=== PATIENT | female | born 1950 | race Caucasian/White ===

== ENCOUNTER 2017-12-11 07:26 | Outpatient (CLI) | payer MEDICARE, BC ==
--- NOTE | 2017-12-11 10:00 | CT ---
CT ABDOMEN NONCONTRAST CT PELVIS NONCONTRAST: DATE: 12/11/17. HISTORY: A 67-year-old female with stage III chronic kidney disease, moderate N18.3. TECHNIQUE: Oral contrast. No IV contrast. COMPARISON: Contrast-enhanced CT of 06/17/14. FINDINGS: Previously, there were bilateral pleural effusions, ascites, and anasarca. Those have resolved. Aga in noted is the asymmetrically small size of the left kidney compared to the right. There is mild di lation of the right renal collecting system, slightly greater than on the previous CT. There is also mild dilation of the left renal collecting system. There is a punctate calcification at the left re nal upper-mid pole, which is probably a vascular atherosclerotic calcification, and is less likely to represent nephrolithiasis. There is no calcification in the right kidney. No definite hydroureter. No bladder calculus. No bladder wall thickening. New finding of large volume of colonic stool mix ed with oral contrast material, mildly distending the rectum. No small bowel dilation. No signs of acute colonic diverticulitis. No pneumoperitoneum. Lung bases are clear. Heavy atherosclerotic elizabeth cification of abdominal aorta and iliac arteries without aneurysm. Within the limitations of a nonco ntrast scan, no gross abnormality is identified involving the liver, spleen, adrenals, or pancreas. Cholecystectomy clips in the gallbladder fossa. Surgically absent appendix and uterus. IMPRESSION: 1. Minimal/mild bilateral hydronephrosis. 2. Otherwise, no evidence of acute findings. 3. Left kidney is smaller than the right. 4. Status post cholecystectomy, appendectomy, and hysterectomy. POS: [facility]
== END 2017-12-11 07:27 | disposition home or self-care (01) ==
LOC: CT 07:26
PROVIDERS: ATTEND Internal Medicine Hematology & Oncology
DX: N18.3 Chronic kidney disease, stage 3 (moderate) (principal); D63.1 Anemia in chronic kidney disease; D50.9 Iron deficiency anemia, unspecified; N13.30 Unspecified hydronephrosis; N27.0 Small kidney, unilateral; Z90.49 Acquired absence of other specified parts of digestive tract; Z90.710 Acquired absence of both cervix and uterus; Z79.01 Long term (current) use of anticoagulants; Z51.81 Encounter for therapeutic drug level monitoring
CPT/HCPCS: 74176; 82565

== ENCOUNTER 2018-09-13 08:18 | Outpatient (CLI) | payer MEDICARE, BC ==
--- NOTE | 2018-09-13 09:49 | RAD ---
THREE VIEWS RIGHT FOOT: Date: 09-13-18 History: Right foot pain after dropping puzzle table on foot on Sunday afternoon. Pain mainly at dors al aspect of the foot and head of metatarsals. Bruising and swelling. Comparison: None available. FINDINGS: POS: [facility]
--- NOTE | 2018-09-18 07:26 | RAD ---
THREE VIEWS RIGHT FOOT: Date: 09-13-18 History: Right foot pain after dropping puzzle table on foot on Sunday afternoon. Pain is mainly at t he dorsal aspect of the foot and the level of the head of the metatarsals. Patient has bruising and s welling. Comparison: None available. FINDINGS: The lisfranc joint is normally aligned. No fracture or dislocation is identified. Minimal osteoarthri tis involves the first metatarsal phalangeal joint. There is prominent subcutaneous soft tissue swell ing seen at the dorsal aspect of the foot and greatest at the level of the metatarsals. A posterior c alcaneal enthesophyte is identified. IMPRESSION: Prominent subcutaneous soft tissue swelling right foot without definite fracture visualized. POS: [facility]
== END 2018-09-13 08:19 | disposition home or self-care (01) ==
LOC: BICRAD 08:18
PROVIDERS: ATTEND Family Medicine
DX: M79.671 Pain in right foot (principal)

== ENCOUNTER 2018-11-14 11:50 | Outpatient (CLI) | payer MEDICARE, BC ==
--- NOTE | 2018-11-14 13:54 | RAD ---
RIGHT FOOT THREE VIEWS: History: Dropped table on foot in August. Swelling. Recently the patient started having a blister s how up on the top of the foot. FINDINGS: The bones are demineralized. There are arthritic changes of the first metatarsal phalangeal joint. I do not see any signs for a fracture. Calcaneal spurs are present. No plain film evidence for osteomye litis. IMPRESSION: Bony demineralization which appears increased as compared to the previous examination. There is some soft tissue swelling on the dorsum of the foot. No evidence of underlying fracture or signs of osteom yelitis. POS: [facility]
== END 2018-11-14 11:51 | disposition home or self-care (01) ==
LOC: BICRAD 11:50
PROVIDERS: ATTEND Family Medicine
DX: M79.671 Pain in right foot (principal); Z51.81 Encounter for therapeutic drug level monitoring; M79.89 Other specified soft tissue disorders; Z79.01 Long term (current) use of anticoagulants

== ENCOUNTER 2019-07-17 09:37 | Outpatient (CLI) | payer MEDICARE, BC ==
--- NOTE | 2019-07-17 10:55 | ULT ---
SONOGRAM ABDOMEN COMPLETE: HISTORY: Abdominal pain. Palpable lesion just below the xiphoid. Thrombocytopenia. Renal disease. Anemia. FINDINGS: Gallbladder is surgically absent. Common duct is 0.4 cm. Liver heterogeneous without focal mass or intrahepatic biliary dilatation. Mild distention of each renal collecting system is similar to the p rior CT from 12/11/2017. No free fluid. The spleen measures up to 13.5 cm. A lobular 1.5 cm hyperechoic lesion likely represents a small hem angioma within the spleen. The visualized portions of the abdominal aorta, IVC, and pancreas have a normal appearance. Within the subcutaneous tissues immediately inferior to the xiphoid where patient describes a palpabl e abnormality, a subtle area of decreased echogenicity is measured at 2.4 cm length x 0.8 cm depth. It does not have well-defined mass-like margins and may represent a small cartilaginous deposition. IMPRESSION: 1. Status post cholecystectomy. No evidence of biliary obstruction. 2. Small hemangioma within the spleen. 3. Chronic-type findings are stable. POS: [facility]
== END 2019-07-17 09:38 | disposition home or self-care (01) ==
LOC: BICULT 09:37
PROVIDERS: ATTEND Internal Medicine Hematology & Oncology
DX: R16.1 Splenomegaly, not elsewhere classified (principal); D18.03 Hemangioma of intra-abdominal structures; Z90.49 Acquired absence of other specified parts of digestive tract
CPT/HCPCS: 93975

== ENCOUNTER 2019-09-10 02:33 | Inpatient (IN) | payer MEDICARE, BC ==
[2019-09-10 03:09] LABS: Hemoglobin 10.1 g/dL (12.0-16.0); Mean Corpuscular HGB CONC 33.2 g/dL (32.0-36.0); Mean Corpuscular Hemoglobin 39.2 pg (27.0-31.0); Mean Platelet Volume 9.7 fL (7.4-10.4); Platelet Count 696 thou/uL (130-400); RBC Distribution Width 25.9 % (11.5-14.5); Red Blood Cell (RBC) Count 2.58 mill/uL (4.20-5.40); White Blood Cell (WBC) Count 4.7 thou/uL (4.8-10.8)
[2019-09-10 03:10] LABS: INR-International Normal Ratio 1.9; Prothrombin Time 22.1 SEC (12.0-14.7)
[2019-09-10 03:23] LABS: #Lymphocytes 0.4 thou/uL (1.20-3.40); #Monocytes 0.4 thou/uL (0.11-0.59); #Neutrophils 3.9 thou/uL (1.40-6.50); %Basophils 0.5 % (0.0-1.0); %Eosinophils 0.3 % (0.0-10.0); %Lymphocytes 8.8 % (21.0-51.0); %Monocytes 7.8 % (0.0-10.0); %Neutrophils 82.7 % (42.0-75.0); Anisocytosis MODERATE=16-30 cells (100X) (0-5/hpf); Large Platelets SLIGHT; MDiff Complete? YES; Macrocytosis MODERATE=16-30 cells (100X) (0-5/hpf); Platelet Morphology Comment Appears Increased; Polychromasia SLIGHT = 2-3 cells (100X) (0-2/hpf)
[2019-09-10 03:26] LABS: ALT (SGPT) 52 U/L (8-55); AST (SGOT) 59 U/L (5-34); Albumin 3.6 g/dL (3.4-4.8); Alkaline Phosphatase 77 U/L (40-110); Anion Gap 15 mmol/L (10-20); BUN (Urea Nitrogen) 22 mg/dL (9.8-20.1); Bilirubin, Total 1.5 mg/dL (0.2-1.2); Calc. Creatinine Clearance 0 mL/min (70-130); Calcium 8.1 mg/dL (7.8-10.44); Carbon Dioxide 23 mmol/L (23-31); Chloride 107 mmol/L (98-107); Estimated GFR-MDRD 49; Globulin 2.4 g/dL (2.4-3.5); Glucose 150 mg/dL (80-115); Lipase 11 U/L (8-78); Potassium 4.7 mmol/L (3.5-5.1); Sodium 140 mmol/L (136-145)
[2019-09-10] MEDS ORDERED: predniSONE 20 MG TAB ONE (03:42)
[2019-09-10] MEDS ORDERED: Sodium Chloride 0.9% 100 ML ONE (03:42)
[2019-09-10] MEDS ORDERED: cefTRIAXone\\ROCEPHIN 1 GM VIAL ONE (03:42)
[2019-09-10] MEDS ORDERED: Albuterol Sulfate 2.5 mg/0.5 ml Neb ONE (03:50)
[2019-09-10] MEDS ORDERED: Albuterol Sulfate 2.5 mg/3 ml Neb ONE (03:50)
--- NOTE | 2019-09-10 04:03 | PDOC.FPRHP ---
- History of Present Illness Chief Complaint: SOB History of Present Illness: Mrs. Turner is a 69 y/o female who presents to the ED with SOB. She states that the SOB has been ongoing since 09/09 and associated with fevers, chills, headaches, weakness and lower extremity edema. She also admits to feelings of abdominal fullness and multiple episodes of diarrhea. She states that she has cancer, type unknown - possibly in her blood - for which she sees Dr. Singh locally. Her was present in the room at the time of the evaluation and assisted with much of the HPI and ROS. ED Course: Per the ED provider, she received 3 doses of Albuterol while en route to the ED. While in the ED, she was given Albuterol x1, Prednisone 60 mg, Azithromycin 500 mg IV, Ceftriaxone 1 g IV BNP: 836 CXR: RLL opacification noted Troponins: Negative x1 - Allergies/Adverse Reactions Allergies Allergy/AdvReac Type Severity Reaction Status Date / Time amlodipine Allergy Verified 03/12/13 17:19 lisinopril Allergy Verified 03/12/13 17:19 morphine Allergy Verified 03/12/13 17:15 - Home Medications Medication Instructions Recorded Confirmed Type Cholecalciferol (Vitamin D3) 2,000 unit PO DAILY 03/12/13 09/10/19 History [Vitamin D3] Docusate [Colace] 100 mg PO Q2DAYS 03/12/13 09/10/19 History Rosuvastatin [Crestor] 10 mg PO HS 03/12/13 09/10/19 History Carvedilol 25 mg PO BID 06/10/14 09/10/19 History Amiodarone [Cordarone] 1 tab PO BID 09/10/19 09/10/19 History Apixaban [Eliquis] 2.5 mg PO BID 09/10/19 09/10/19 History Ascorbic Acid [Vitamin C] 500 mg PO DAILY 09/10/19 09/10/19 History Aspirin [Ecotrin] 81 mg PO HS 09/10/19 09/10/19 History Docusate [Colace] 100 mg PO Q2DAYS 09/10/19 09/10/19 History Folic Acid 0.4 mg PO DAILY 09/10/19 09/10/19 History Hydroxyurea [Hydrea] 500 mg PO BID 09/10/19 09/10/19 History Mirabegron [Myrbetriq] 1 tab PO DAILY 09/10/19 09/10/19 History Triamterene 25 mg PO DAILY 09/10/19 09/10/19 History - History PMHx: A-Fib, COPD, HTN, DM, HLD, CVA, Unknown Cancer PSHx: Cholecystectomy, Pericardial Window for Hemopericardium FHx: Mother (CVA, DM) Sister (CVA, DM) Allergies: Amlodipine, Lisinopril, Morphne Social: Remote Tobacco Abuse - currently Denies x3. Code: Full Code - Review of Systems General: reports: fever/chills, fatigue Eyes: denies: vision changes ENT: denies: nasal congestion, rhinorrhea Respiratory: reports: cough, shortness of breath, exercise intolerance Cardiovascular: reports: palpitation, edema. denies: chest pain Gastrointestinal: reports: diarrhea, abdominal pain. denies: nausea, vomiting Genitourinary: denies: dysuria, polyuria Skin: denies: rashes, lesions Musculoskeletal: denies: stiffness, swelling Neurological: reports: weakness. denies: syncope Psychological: denies: anxiety, depression - Vital signs BP: [147/72] HR: [66] RR: [27] Tmax: [99.5] Pox: [94]% on [4L O2] Wt: [52 kg] - Physical Exam Constitutional: awake, alert and oriented, other (Patient breathing heavily with O2 mask in place. Able to answer questions in 3-5 word sentences.) HEENT: normocephalic and atraumatic, PERRLA, conjunctiva clear, no scleral icterus, grossly normal vision, grossly normal hearing, normal nasal mucosa, MMM , oropharynx clear Neck: supple, FROM, trachea midline, no LAD, no JVD Chest: no-tender to palpation, no lesions Heart: RRR, normal S1/S2, no murmurs/rubs/gallops, pulses present, other (+2 pitting edema to mid-tibia) Lungs: other (Scattered wheezing with occasional crackles in lower lung gomez. Poor air movement.) Abdomen: soft, non-tender, bowel sounds present, no masses/distention Musculoskeletal: normal structure, ROM grossly normal Neurological: no focal deficit Skin: no rash/lesions, no jaundice Heme/Lymphatic: no unusual bruising or bleeding, no purpura, no petechia Psychiatric: normal mood and affect, good judgment and insight, intact recent and remote memory FMR H&P: Results - Labs Result Diagrams: 09/10/19 02:55 09/10/19 02:55 Lab results: WBC 4.7 thou/uL (4.8-10.8) L 09/10/19 02:55 Hgb 10.1 g/dL (12.0-16.0) L 09/10/19 02:55 Hct 30.5 % (36.0-47.0) L 09/10/19 02:55 MCV 118.0 fL (78.0-98.0) H 09/10/19 02:55 Plt Count 696 thou/uL (130-400) H 09/10/19 02:55 Neutrophils % 82.7 % (42.0-75.0) H 09/10/19 02:55 Sodium 140 mmol/L (136-145) 09/10/19 02:55 Potassium 4.7 mmol/L (3.5-5.1) 09/10/19 02:55 Chloride 107 mmol/L (98-107) 09/10/19 02:55 Carbon Dioxide 23 mmol/L (23-31) 09/10/19 02:55 BUN 22 mg/dL (9.8-20.1) H 09/10/19 02:55 Creatinine 1.10 mg/dL (0.6-1.1) 09/10/19 02:55 Glucose 150 mg/dL (80-115) H 09/10/19 02:55 Calcium 8.1 mg/dL (7.8-10.44) 09/10/19 02:55 Total Bilirubin 1.5 mg/dL (0.2-1.2) H 09/10/19 02:55 AST 59 U/L (5-34) H 09/10/19 02:55 ALT 52 U/L (8-55) 09/10/19 02:55 Alkaline Phosphatase 77 U/L (40-110) 09/10/19 02:55 B-Natriuretic Peptide 836.8 pg/mL (0-100) H 09/10/19 02:55 Serum Total Protein 6.0 g/dL (6.0-8.3) 09/10/19 02:55 Albumin 3.6 g/dL (3.4-4.8) 09/10/19 02:55 Lipase 11 U/L (8-78) 09/10/19 02:55 FMR H&P: A/P - Problem List (1) Acute respiratory failure with hypoxia Current Visit: Yes Status: Acute Code(s): J96.01 - ACUTE RESPIRATORY FAILURE WITH HYPOXIA (2) Pneumonia Current Visit: Yes Status: Acute Code(s): J18.9 - PNEUMONIA, UNSPECIFIED ORGANISM (3) Essential thrombocytosis Current Visit: No Status: Chronic Code(s): D47.3 - ESSENTIAL (HEMORRHAGIC) THROMBOCYTHEMIA (4) HTN (hypertension) Current Visit: No Status: Chronic Code(s): I10 - ESSENTIAL (PRIMARY) HYPERTENSION Qualifiers: Hypertension type: essential hypertension Qualified Code(s): I10 - Essential (primary) hypertension - Plan Patient is a 69 y/o female currently admitted to the Medical Floor for SOB. 1. Acute Hypoxic Respiratory Failure -PNA seems to be the most likely causative factor based on HPI, ROS and CXR findings -Acute CHF Exacerbation and COPD Exacerbation may be additional causative factors based on prior history and physical exam findings -Trops: Negative x1 -BNP: 836 -s/p Azithromycin and Ceftriaxone - will continue at this time -Prednisone 60 mg PO in ED - will hold at this time in order to evaluate response to fluid diuresis -DuoNebs Q4H PRN -Will order Furosemide 20 mg IV for fluid diuresis - evaluate clinically 2. Lobar Pneumonia -Radiographic evidence demonstrated on CXR performed in ED -See #1 3. COPD Exacerbation -s/p multiple DuoNeb treatments and Prednisone 60 mg PO -See #1 4. HTN -Continue home medication regimen 5. A-Fib -Continue home medication regimen Code: Full Diet: CC (Fluid Restriction < 1500 ml) Activity: Ambulate w/ Assist VTE PPx: Unable to Establish Patient's Home Anticoagulation Regimen - Will start Lovenox 40 mg SC Daily Dispo: Patient is currently admitted to the Medical Floor for Acute Hypoxic Respiratory Failure, most likely multi-factorial. Continue with medical management as per above and evaluate for clinical improvement. Expected LOS > 48H. FMR H&P: Upper Level - Pertinent history 69 y/o F PMHx CVA, a-fib, HTN, CHF, COPD, Essential thrombocytosis presents to the ED due to SOB. She reports it has been ongoing since yesterday morning and reports associated fevers and chills. She denies any cough until she got her first breathing treatment. She reports worsened LE swelling lately. Denies orthopnea or PND. She was found by EMS to be hypoxic to the 80s and got 3 duonebs and was started on O2. In the ER the pt was found to have a RLL PNA and was started on rocephin and azithromycin and given another duoneb and prednisone 60mg. - Pertinent findings Vitals: BP: 147/72, Pulse: 66, Resp: 27, Temp: 99.5 (Oral), Pain: 5, O2 sat: 94 on (4L Oxygen) PE: Gen - alert, oriented, sitting up, appears in respiratory distress on 4L O2 with breathing treatment going currently CV - RRR, no murmurs Lungs - Expiratory wheezes diffusely, rales in bases bilaterally, unable to speak in full sentences with increased WOB. Ext - 1+ pitting edema to BLE Labs: WBC 4.7, Platelets 696, T bili 1.8, BUN 22, Cr 1.1 CXR: RLL PNA, increased pulmonary vascular congestion, hyperinflated lungs, official read pending - Plan Date/Time: 09/10/19 0403 I, Naty Valderrama MD, PGY-3, have evaluated this patient and agree with findings/ plan as outlined by property management intern resident. Pertinent changes/additions are listed here. 1. Acute Hypoxic Respiratory Failure Suspect multifactorial with PNA as well as known COPD and CHF with worsened BRITT and swelling lately as well as wheezes on exam. -Continue O2 prn -Duonebs -Echo with a trial of 20mg IV lasix 2. RLL CAP Pt with CXR suspicious for a RLL consolidation in the setting of a fever, chills , SOB. -Treat with rocephin and azithromycin -Check procal -Flu swab 3. CHF Pt appears mildly overloaded on exam with BNP 836 -Will give one time dose of lasix 20mg IVP -Fluid restrict, strict I/O's, daily weights -Resume home meds once able to get list -Echo 4. COPD Pt has some mild wheezes on exam but moving good air -Nebs prn, but do not suspect exacerbation at this time 5. Afib On chronic anticoagulation per report, official med list pending -Continue eliquis and other home meds once we get med rec 6. Thrombocytosis Follows with Dr. Singh -Monitor 7. h/o CVA -Continue meds Dispo: Admit to medical LOS: Likely 2 days Addendum - Attending - Attending Attestation Date/Time: 09/10/19 2155 I personally evaluated the patient and discussed the management with Dr. Quiroz. I agree with the History, Examination, Assessment and Plan documented above with any addition or exceptions noted below. The patient presented with shortness of breath, leg edema, fatigue. The patient will be treated with nebs, steroids, antibiotics for copd exacerbation and possible pneumonia. Wean o2 as tolerated. Working on getting home meds. BNP is elevated, will get echo and give lasix. Cardiac enzymes are indeterminate, continue to trend.
[2019-09-10] MEDS ORDERED: Azithromycin 500 MG VIAL ONE (04:06)
[2019-09-10] MEDS ORDERED: Acetaminophen 325 MG TAB PO PRN (06:24)
[2019-09-10] MEDS ORDERED: Furosemide 20 MG/2 ML VIAL SLOW IVP SCH (06:30)
[2019-09-10 07:01] LABS: Troponin I 0.033 ng/mL (< 0.028)
[2019-09-10] MEDS ORDERED: Acetaminophen 325 MG TAB PO SCH (07:15)
[2019-09-10 08:12] VITALS: BMI 21.0
[2019-09-10] MEDS ORDERED: Docusate 100 MG CAP PO SCH (09:00)
[2019-09-10] MEDS ORDERED: Ascorbic Acid 500 mg Chewable Tablet PO SCH (09:00)
[2019-09-10] MEDS ORDERED: Enoxaparin Sodium 40 MG/0.4 ML SYRINGE SC SCH ×2 (09:00)
[2019-09-10] MEDS ORDERED: Hydroxyurea 500 MG CAP PO SCH (09:00)
[2019-09-10] MEDS ORDERED: Aspirin 81 mg Enteric Coated Tablet PO SCH (09:00)
[2019-09-10 09:49] LABS: Troponin I 0.059 ng/mL (< 0.028)
--- NOTE | 2019-09-10 09:53 | RAD ---
PORTABLE CHEST: Date: 09/10/19 HISTORY: Shortness of breath. COMPARISON: 06/21/14 exam. FINDINGS: The heart size appears borderline for portable technique. Pacemaker is present. Interstitial markings are more prominent than on the prior examination. This appears to represent an element of chronic ch diana and superimposed pulmonary edema. IMPRESSION: Chronic lung change with changes that are felt to represent pulmonary edema change. POS: [facility]
[2019-09-10 13:56] LABS: Troponin I 0.013 ng/mL (< 0.028)
[2019-09-10 16:11] LABS: Legionella Urinary Ag Negative (Negative); Strep pneumo Urine Ag NEGATIVE (NEGATIVE)
[2019-09-10] MEDS ORDERED: Dronedarone HCl 400 MG TAB PO SCH (17:00)
[2019-09-10] MEDS: Carvedilol 25 MG TAB PO SCH (20:18)
[2019-09-10] MEDS: Amiodarone 200 MG TAB PO SCH (20:18)
[2019-09-10] MEDS: Folic Acid 1 MG TAB PO SCH (20:18)
[2019-09-10] MEDS: Rosuvastatin 10 MG TAB PO SCH (20:18)
[2019-09-10] MEDS: Aspirin 81 mg Enteric Coated Tablet PO SCH (20:18)
[2019-09-10] MEDS: Apixaban 2.5 MG TAB PO SCH (20:19)
[2019-09-10] MEDS: Hydroxyurea 500 MG CAP PO SCH (20:19)
[2019-09-10] MEDS ORDERED: Rosuvastatin 10 MG TAB PO SCH (21:00)
[2019-09-11] MEDS: cefTRIAXone\\ROCEPHIN 1 GM in Sodium Chloride 0.9% 100 ML IVPB SCH (03:48)
--- NOTE | 2019-09-11 06:21 | PDOC.FM ---
- Subjective Subjective: Patient states her SOB is better this morning, chest tightness has resolved. Had O2 weaned to 2L earlier this mornings. Was trialed off oxygen this morning fro 15 min and O2 sat was 92-93% on room air. Patient does not normally use O2 at home, does not have a nebulizer at home. Patient concerned this morning that she is going to miss her Procrit injection which she is due for today, normally receives from Dr. Singh. - Objective Vital Signs & Weight: Vital Signs (12 hours) Temp Pulse Resp BP Pulse Ox 09/11/19 02:04 67 16 97 09/10/19 23:42 98.6 F 68 20 126/55 L 98 09/10/19 22:09 97 16 94 L 09/10/19 19:44 98.4 F 92 18 152/72 H 94 L 09/10/19 19:10 61 12 97 Weight Weight 55.384 kg I&O: 09/09/19 09/10/19 09/11/19 06:59 06:59 06:59 Intake Total 2200 Balance 2200 Result Diagrams: 09/11/19 05:53 09/11/19 05:53 Phys Exam - Physical Examination Constitutional: NAD HEENT: moist MMs, sclera anicteric Neck: supple, full ROM Respiratory: no rales, no rhonchi occasional expiratory wheezing, good air movement Cardiovascular: RRR, no significant murmur Gastrointestinal: soft, no distention, positive bowel sounds Musculoskeletal: no edema, pulses present Neurological: normal sensation, moves all 4 limbs Psychiatric: normal affect, A&O x 3 Skin: no rash, normal turgor Dx/Plan (1) Acute respiratory failure with hypoxia Code(s): J96.01 - ACUTE RESPIRATORY FAILURE WITH HYPOXIA Status: Acute (2) Pneumonia Code(s): J18.9 - PNEUMONIA, UNSPECIFIED ORGANISM Status: Acute Qualifiers: Pneumonia type: due to unspecified organism Laterality: right Lung location: lower lobe of lung Qualified Code(s): J18.9 - Pneumonia, unspecified organism (3) A-fib Code(s): I48.91 - UNSPECIFIED ATRIAL FIBRILLATION Status: Chronic Qualifiers: Atrial fibrillation type: unspecified chronic Qualified Code(s): I48.20 - Chronic atrial fibrillation, unspecified; I48.2 - Chronic atrial fibrillation (4) COPD (chronic obstructive pulmonary disease) Status: Chronic Qualifiers: Emphysema type: unspecified - Plan Plan: Patient is a 69 y/o female currently admitted to the Medical Floor for SOB. #Acute Hypoxic Respiratory Failure -PNA seems to be the most likely causative factor based on HPI, ROS and CXR findings -Acute CHF Exacerbation and COPD Exacerbation may be additional causative factors based on prior history and physical exam findings -ECHO ordered -Trops: .01 > .03 > .06 > .01 -BNP: 836 -s/p Azithromycin and Ceftriaxone in ED - will continue at this time -Prednisone 60 mg PO in ED - will hold at this time in order to evaluate response to fluid diuresis -DuoNebs Q4H RUDDY -s/p Furosemide 20 mg IV for fluid diuresis - euvolemic on exam #RLL Community Acquired Pneumonia -Radiographic evidence demonstrated on CXR performed in ED -continue Azithromycin & Ceftriaxone -still requiring 2L of O2, will continue trying to wean today, trial on room air during exam this morning with O2 sat at 93% -Procal 0.29 -Flu swab negative -Urine strep & legionella negative #Hx of COPD -s/p multiple DuoNeb treatments and Prednisone 60 mg PO -continue ruddy. Duonebs q4h -good air movement on exam, do not suspect exacerbation at this point -does not use oxygen at home, does not have nebulizer treatments at home #CHF Exacerbation, suspected -ECHO ordered -BNP 836 -s/p Furosemide 20 mg IV for fluid diuresis-euvolemic on exam this AM -strict I/Os, daily weights -resume home meds #HTN -Continue home medication regimen #A-Fib -Continue home medication regimen #Hx of Thrombocytosis -follows with Dr. Singh, oncology -due for Procrit injection today, will call Dr. Singh's office to see if can give here prior to d/c #Hx of CVA -persistent speech deficits -continue home medications regimen Code status: Full Diet: CC (Fluid Restriction < 1500 ml) VTE PPx: home Eliquis Dispo: Stable, admitted to inpatient on medical unit. Continue antibiotics as above and evaluate for clinical improvement. Continue to try to wean O2. Patient will need to continue neb treatments at home, will send Rx for equipment. Expect discharge in 24-48 hrs. Addendum - Attending - Attending Attestation Date/Time: 09/11/19 1008 I personally evaluated the patient and discussed the management with Dr. Avelar. I agree with the History, Examination, Assessment and Plan documented above with any addition or exceptions noted below. The patient's O2 sats are stable in low 90's off oxygen. Will monitor today. She was scheduled for procrit today with Dr. Singh, will see if she wants us to give her a dose here. Echo is being taken while we are in her room. F/u results.
[2019-09-11 06:35] LABS: Anion Gap 10 mmol/L (10-20); BUN (Urea Nitrogen) 28 mg/dL (9.8-20.1); Calc. Creatinine Clearance 41 mL/min (70-130); Calcium 8.1 mg/dL (7.8-10.44); Carbon Dioxide 30 mmol/L (23-31); Chloride 104 mmol/L (98-107); Estimated GFR-MDRD 49; Glucose 115 mg/dL (80-115); Potassium 3.8 mmol/L (3.5-5.1); Sodium 140 mmol/L (136-145)
[2019-09-11 06:48] LABS: #Lymphocytes 0.6 thou/uL (1.20-3.40); #Monocytes 0.6 thou/uL (0.11-0.59); #Neutrophils 3.7 thou/uL (1.40-6.50); %Basophils 0.1 % (0.0-1.0); %Eosinophils 0.5 % (0.0-10.0); %Lymphocytes 11.6 % (21.0-51.0); %Monocytes 12.1 % (0.0-10.0); %Neutrophils 75.7 % (42.0-75.0); Anisocytosis MODERATE=16-30 cells (100X) (0-5/hpf); Hemoglobin 9.4 g/dL (12.0-16.0); MDiff Complete? YES; Mean Corpuscular HGB CONC 32.4 g/dL (32.0-36.0); Mean Corpuscular Hemoglobin 38.3 pg (27.0-31.0); Mean Platelet Volume 9.6 fL (7.4-10.4); Ovalocytes SLIGHT = 2-5 cells (100X) (0-1/hpf); Platelet Count 646 thou/uL (130-400); Platelet Morphology Comment Appears Increased; RBC Distribution Width 25.5 % (11.5-14.5); Red Blood Cell (RBC) Count 2.45 mill/uL (4.20-5.40); Tear Drops SLIGHT = 2-5 cells (100X) (0-1/hpf); White Blood Cell (WBC) Count 4.9 thou/uL (4.8-10.8)
[2019-09-11] MEDS ORDERED: Docusate 100 MG CAP PO SCH (09:00)
[2019-09-11] MEDS: Azithromycin 250 MG TAB PO SCH (09:15)
[2019-09-11] MEDS: Hydroxyurea 500 MG CAP PO SCH ×2 (09:15→20:41)
[2019-09-11] MEDS: Ferrous Sulfate 325 MG TAB PO SCH (09:15)
[2019-09-11] MEDS: Ascorbic Acid 500 mg Chewable Tablet PO SCH (09:15)
[2019-09-11] MEDS: Carvedilol 25 MG TAB PO SCH ×2 (09:15→20:41)
[2019-09-11] MEDS: Amiodarone 200 MG TAB PO SCH ×2 (09:22→20:41)
[2019-09-11] MEDS: Apixaban 2.5 MG TAB PO SCH ×2 (09:22→20:41)
[2019-09-11] MEDS ORDERED: Triamterene/Hydrochlorothiazide 37.5 mg/25 mg Tablet PO SCH (11:00)
[2019-09-11] MEDS: Aspirin 81 mg Enteric Coated Tablet PO SCH (20:41)
[2019-09-11] MEDS: Rosuvastatin 10 MG TAB PO SCH (20:41)
[2019-09-11] MEDS: Folic Acid 1 MG TAB PO SCH (20:42)
[2019-09-12] MEDS: cefTRIAXone\\ROCEPHIN 1 GM in Sodium Chloride 0.9% 100 ML IVPB SCH (04:35)
--- NOTE | 2019-09-12 06:06 | PDOC.FM ---
- Subjective Subjective: Patient doing well this morning. Denies cp or sob. Discussed that Dr. Singh's office requested patient get bone marrow biopsy while in the hospital, scheduled for today. Patient is in agreement with plan of care. - Objective MAR Reviewed: Yes Vital Signs & Weight: Vital Signs (12 hours) Temp Pulse Resp BP Pulse Ox 09/12/19 04:34 98.3 F 62 18 167/71 H 92 L 09/12/19 02:41 60 12 92 L 09/12/19 00:28 99.0 F 60 18 119/55 L 92 L 09/11/19 22:52 61 12 92 L 09/11/19 20:02 98.3 F 62 18 128/58 L 92 L Weight Weight 55.384 kg I&O: 09/10/19 09/11/19 09/12/19 06:59 06:59 06:59 Intake Total 2200 Balance 2200 Result Diagrams: 09/11/19 05:53 09/11/19 05:53 Phys Exam - Physical Examination Constitutional: NAD HEENT: moist MMs, sclera anicteric Neck: supple, full ROM Respiratory: no wheezing, clear to auscultation bilateral Cardiovascular: RRR, no significant murmur Gastrointestinal: soft, non-tender Musculoskeletal: no edema, pulses present Neurological: non-focal, moves all 4 limbs Psychiatric: normal affect, A&O x 3 Skin: no rash, normal turgor Dx/Plan (1) Acute respiratory failure with hypoxia Code(s): J96.01 - ACUTE RESPIRATORY FAILURE WITH HYPOXIA Status: Acute (2) Pneumonia Code(s): J18.9 - PNEUMONIA, UNSPECIFIED ORGANISM Status: Acute Qualifiers: Pneumonia type: due to unspecified organism Laterality: right Lung location: lower lobe of lung Qualified Code(s): J18.9 - Pneumonia, unspecified organism (3) Pacemaker Code(s): Z95.0 - PRESENCE OF CARDIAC PACEMAKER Status: Acute (4) A-fib Code(s): I48.91 - UNSPECIFIED ATRIAL FIBRILLATION Status: Chronic Qualifiers: Atrial fibrillation type: unspecified chronic Qualified Code(s): I48.20 - Chronic atrial fibrillation, unspecified; I48.2 - Chronic atrial fibrillation (5) COPD (chronic obstructive pulmonary disease) Status: Chronic Qualifiers: Emphysema type: unspecified (6) Essential thrombocytosis Code(s): D47.3 - ESSENTIAL (HEMORRHAGIC) THROMBOCYTHEMIA Status: Chronic (7) HLD (hyperlipidemia) Code(s): E78.5 - HYPERLIPIDEMIA, UNSPECIFIED Status: Chronic Qualifiers: Hyperlipidemia type: unspecified Qualified Code(s): E78.5 - Hyperlipidemia , unspecified (8) HTN (hypertension) Code(s): I10 - ESSENTIAL (PRIMARY) HYPERTENSION Status: Chronic Qualifiers: Hypertension type: essential hypertension Qualified Code(s): I10 - Essential (primary) hypertension - Plan Plan: Patient is a 69 y/o female currently admitted to the Medical Floor for SOB. #Acute Hypoxic Respiratory Failure -PNA seems to be the most likely causative factor based on HPI, ROS and CXR findings -ECHO: EF 55-60%, moderately dilated L atrium, mild-moderate mitral regurg, mitral annular calcification, mild tricuspid regurg -Trops: .01 > .03 > .06 > .01 -BNP: 836 -s/p Azithromycin and Ceftriaxone in ED - will continue at this time -Prednisone 60 mg PO in ED - held to evaluate response to fluid diuresis -DuoNebs Q4H RUDDY -s/p Furosemide 20 mg IV for fluid diuresis - euvolemic on exam #RLL Community Acquired Pneumonia -Radiographic evidence demonstrated on CXR performed in ED -continue Azithromycin & Ceftriaxone -satted 92% on RA overnight -Procal 0.29 -Flu swab negative -Urine strep & legionella negative #Hx of COPD -s/p multiple DuoNeb treatments and Prednisone 60 mg PO -continue ruddy. Duonebs q4h -does not use oxygen at home, does not have nebulizer treatments at home -satting well on RA at this time, will send for script for nebulizer at discharge #CHF Exacerbation, possible -ECHO taken, see above -BNP 836 -s/p Furosemide 20 mg IV for fluid diuresis-euvolemic on exam this AM -strict I/Os, daily weights -resume home meds #HTN -Continue home medication regimen #A-Fib -Continue home medication regimen #Hx of Thrombocytosis -follows with Dr. Singh, oncology -due for Procrit injection 09/11, Dr. Singh's office rec for patient to get it outpatient and that it is fine for her to miss her dose while hospitalized -Dr. Singh's office requested that patient get her bone marrow biopsy while in the hospital; plan for biopsy today #Hx of CVA -persistent speech deficits -continue home medications regimen Code status: Full Diet: CC (Fluid Restriction < 1500 ml) VTE PPx: home Eliquis Dispo: Stable, admitted to inpatient on medical unit. Continue antibiotics as above and evaluate for clinical improvement. Patient will need to continue neb treatments at home, Rx sent for equipment. Plan for bone marrow biopsy today, with likely d/c afterward. Addendum - Attending - Attending Attestation Date/Time: 09/12/19 [id number] I personally evaluated the patient and discussed the management with Dr. Guzman. I agree with the History, Examination, Assessment and Plan documented above with any addition or exceptions noted below. The patient is resting comfortably. She will have bone marrow biopsy today and then can d/c home. Dr. Singh told us yesterday that she will get a procrit shot as an outpt at their office.
[2019-09-12 06:55] LABS: INR-International Normal Ratio 1.5; PTT 32.1 SEC (22.9-36.1); Prothrombin Time 18.2 SEC (12.0-14.7)
[2019-09-12 08:04] VITALS: BP 145/60; TEMP 99.1
[2019-09-12] MEDS: Azithromycin 250 MG TAB PO SCH (08:14)
[2019-09-12] MEDS: Carvedilol 25 MG TAB PO SCH (08:14)
[2019-09-12] MEDS: Hydroxyurea 500 MG CAP PO SCH (08:14)
[2019-09-12] MEDS: Ferrous Sulfate 325 MG TAB PO SCH (08:14)
[2019-09-12] MEDS: Amiodarone 200 MG TAB PO SCH (08:14)
[2019-09-12] MEDS: Ascorbic Acid 500 mg Chewable Tablet PO SCH (08:15)
[2019-09-12] MEDS: Apixaban 2.5 MG TAB PO SCH (08:17)
[2019-09-12] MEDS ORDERED: Triamterene/Hydrochlorothiazide 37.5 mg/25 mg Tablet PO SCH (09:00)
--- NOTE | 2019-09-12 18:45 | DIS ---
DATE OF ADMISSION: 09/10/2019 DATE OF DISCHARGE: 09/12/2019 PRIMARY CARE PHYSICIAN: Macario Crenshaw MD RESIDENTS: 1. Dayana Avelar DO. 2. Isabel Guzman MD. ADMITTING ATTENDING: Juancarlos Niño MD DISCHARGE ATTENDING: Leslie Lima MD CONSULTS: 1. Case Management. 2. Cardiac Rehab. 3. CV Team. PROCEDURES: 1. Chest x-ray on September 10, 2019: Chronic lung change with changes that are felt to represent pulmonary edema change. Interstitial markings are more prominent than on prior exam. 2. Echocardiogram on September 11, 2019: Ejection fraction estimated at 55% to 60%. Left atrium is moderately dilated. Juvb-[id number] mitral regurgitation. Mitral annular calcification present. Mild tricuspid regurgitation. PRIMARY DIAGNOSIS: Acute hypoxic respiratory failure. SECONDARY DIAGNOSES: 1. Right lower lobe community-acquired pneumonia. 2. History of chronic obstructive pulmonary disease. 3. Congestive heart failure exacerbation, possible. 4. Hypertension. 5. Atrial fibrillation. 6. History of thrombocytosis. 7. History of cerebrovascular accident. DISCHARGE MEDICATIONS: 1. Vitamin D3 of 2000 units p.o. daily. 2. Docusate 100 mg p.o. daily two days. 3. Rosuvastatin 10 mg p.o. at bedtime. 4. Carvedilol 25 mg p.o. b.i.d. 5. Mirabegron (Myrbetriq) 50 mg p.o. daily. 6. Amiodarone 200 mg p.o. b.i.d. 7. Eliquis 2.5 mg p.o. b.i.d. 8. Folic acid 0.4 mg p.o. at bedtime. 9. Aspirin (Ecotrin) 81 mg p.o. at bedtime. 10. Hydroxyurea 500 mg p.o. b.i.d. 11. Ascorbic acid 500 mg p.o. daily. 12. Azithromycin 250 mg p.o. daily for three additional days. 13. DuoNeb nebulizer 3 mL nebulizer b.i.d. 14. Nebulizer machine and accessories. 15. Triamterene/hydrochlorothiazide 37.5-25 mg one tablet p.o. daily. DISCONTINUED MEDICATIONS: 1. Prednisone 20 mg daily. 2. Rocephin 1 g daily. 3. Multaq 400 mg p.o. b.i.d. HISTORY OF PRESENT ILLNESS/HOSPITAL COURSE: The patient is a 69-year-old female , who presented to the Emergency Department on September 10, 2019, with shortness of breath. She stated that the shortness of breath has been ongoing since September 09 and associated with fevers, chills, headaches, weakness, and lower extremity edema. She also admits to feelings of abdominal fullness and multiple episodes of diarrhea. She states that she has cancer, type unknown, possibly in her blood for which she sees Dr. Singh with Oncology. Her was present in the room at the time of the initial evaluation and assisted with much of the HPI and ROS. While in the Emergency Department, she received albuterol x1 (had also received three doses of albuterol with EMS). Also received prednisone 60 mg, azithromycin 500 mg IV, ceftriaxone 1 g IV. She was found on chest x-ray to have a right lower lobe opacification. Troponins were negative. Found on lab work to have a BNP of 836. The patient was admitted to inpatient on the medical floor for acute hypoxic respiratory failure, most likely multifactorial from right lower lobe community-acquired pneumonia, COPD, and CHF. The patient was continued on Rocephin and azithromycin. Eventually, she was transitioned to p.o. azithromycin to be completed on an outpatient course. She was given DuoNeb treatments scheduled. She initially appeared mildly fluid overloaded on exam and was given a trial of 20 mg IV Lasix. By the following morning on September 11, she was euvolemic on exam. An echocardiogram was ordered with results as above. The patient initially required 3.5 L of oxygen via nasal cannula. This was weaned down to room air on September 10, 2019. In the afternoon of September 11, the patient was doing very well, was not requiring any oxygen, and had been transitioned over to p.o. antibiotics. She was deemed stable for discharge to home. However, the medical team was contacted by Dr. Singh, who requested that the patient have a bone marrow biopsy performed. This was due to her history of thrombocytosis, for which she has been followed by Dr. Singh as an outpatient. The patient had had previous issues with getting a bone marrow biopsy scheduled as an outpatient and thus Dr. Singh was requesting that we have the procedure performed while she was still in the hospital. Radiology was unable to perform a bone marrow biopsy on September 11; however, they could get her scheduled for the following morning on September 12. However, when the patient went down to Radiology on September 12, it was deemed that they could not perform the procedure because she would need to be off her Eliquis for a minimum of 24 hours in order to perform the biopsy procedure. We were told that the biopsy could not be done until September 15. Due to this being an elective procedure and not the reason for this current hospitalization, the patient was discharged home on the morning of September 12, 2019. She was instructed that she will need to contact Dr. Singh to schedule the bone marrow biopsy as an outpatient procedure. Additionally, during this hospitalization, the patient was concerned that she was going to miss her Procrit injection that she normally receives from Dr. Singh as an outpatient. She was due to have an injection on September 11 per patient and was concerned that she was missing this dose. The patient was counseled that the team had spoken to Dr. Singh and that she does not need a Procrit injection at this time. She was counseled to contact Dr. Singh when she was discharged to schedule an appointment with her. At that appointment, further recommendations could be discussed as to if or when the patient will require a Procrit injection in the future. DISPOSITION: Stable. DISCHARGE INSTRUCTIONS: 1. Location: Home. 2. Diet: Heart healthy. 3. Activity: As tolerated. 4. Follow up with PCP, Dr. Crenshaw in three days. 5. Follow up with Dr. Singh in 3 to 7 days. 6. Follow up with Dr. Arroyo on October 09, 2019 at 1:30 p.m. 7. Follow up with cardiac rehab clinic in [place] as directed. Job ID: [id number] MTDD
--- NOTE | 2019-09-13 09:26 | PQF ---
MAC AREVALO KATHERINE MD [id number] CLINICAL DOCUMENTATION CLARIFICATION FORM: POST DISCHARGE Addendum to original discharge summary date: ____ Late entry note date: __ DATE:09/13/2019 ATTN:ADRIANA FOX MD Please exercise your independent, professional judgment in responding to the clarification form. Clinical indicators are provided on the bottom of this form for your review Please check appropriate box(s): HEART FAILURE: A. TYPE: [ ] Systolic / HFrEF [x ] Diastolic / HFpEF [ ] Combined Systolic / Diastolic [ ] Other diagnosis [ ] Unable to determine In addition, please specify: Present on Admission (POA): x ] Yes [ ] No [ ] Unable to determine For continuity of documentation, please document condition throughout progress notes and discharge summary. Thank You. CLINICAL INDICATORS - SIGNS / SYMPTOMS / LABS SOB-Documented in H&P on 09/10 by Phil Quiroz Acute CHF Exacerbation-Documented in H&P on 09/10 by Phil Quiroz [id number] in H&P on 09/10 by Phil Quiroz Pt appears mildly overloaded on exam-Documented in H&P on 09/10 by Phil Quiroz EF estimated at 55% to 60% -Documented in DS on 09/12 by Dayana Avelar RISKS: Acute hypoxic respiratory failure-Documented in H&P on 09/10 by Phil Quiroz COPD Exacerbation-Documented in H&P on 09/10 by Phil Quiroz Atrial fibrillation-Documented in DS on 09/12 by Daayna Avelar TREATMENTS: Will order Furosemide 20 mg IV for fluid diuresis-Documented in H&P on 09/10 by Phil Quiroz Will give one time dose of lasix 20 mg IV-Documented in H&P on 09/10 by Borroni , Phil SAP Chief Pilot [employer] (This form is maintained as a part of the permanent medical record) 2015 [employer] All Rights Reserved Annette [not provided] MTDD
== END 2019-09-12 12:36 | disposition home or self-care (01) | DRG 291 ==
LOC: ERS 02:33 → T4-B 06:13
PROVIDERS: ADMIT Family Medicine; ATTEND Emergency Medicine
DX: I11.0 Hypertensive heart disease with heart failure (principal); J18.1 Lobar pneumonia, unspecified organism; J96.01 Acute respiratory failure with hypoxia; J44.0 Chronic obstructive pulmonary disease with (acute) lower respiratory infection; J44.1 Chronic obstructive pulmonary disease with (acute) exacerbation; I50.33 Acute on chronic diastolic (congestive) heart failure; I48.91 Unspecified atrial fibrillation; Z86.73 Personal history of transient ischemic attack (TIA), and cerebral infarction without residual deficits; I08.1 Rheumatic disorders of both mitral and tricuspid valves; R40.2362 Coma scale, best motor response, obeys commands, at arrival to emergency department; R40.2142 Coma scale, eyes open, spontaneous, at arrival to emergency department; R40.2252 Coma scale, best verbal response, oriented, at arrival to emergency department; E78.5 Hyperlipidemia, unspecified; Z90.49 Acquired absence of other specified parts of digestive tract; Z82.3 Family history of stroke; Z83.3 Family history of diabetes mellitus
CPT/HCPCS: 36415; 71045; 80048; 80053; 83690; 83880; 84145; 84484; 85025; 85610; 85730; 87449; 87804; 87899; 93005; 93306; 94640; 96365; 96367; J0456; J0696; J1940; J3490; J7512; J7611; J7620

== ENCOUNTER 2019-09-29 08:13 | Day surgery (SDC) | payer MEDICARE, BC ==
[2019-09-26 14:49] VITALS: BMI 20.6
[~2019-09-29 08:13] MED LIST: Prevnar 13-Val Conj/PF 0.5 ML SYRINGE IM ONE
[2019-09-29] MEDS ORDERED: Sodium Bicarbonate 2.5 MEQ/5 ML VIAL ONE (09:28)
[2019-09-29] MEDS ORDERED: Fentanyl 100 MCG/2 ML VIAL ONE (09:29)
[2019-09-29] MEDS ORDERED: Midazolam HCl 2 mg/2 ml Vial ONE (09:29)
--- NOTE | 2019-09-29 10:32 | CT ---
CT GUIDED RIGHT ILIAC BONE MARROW ASPIRATION AND BIOPSY: CLINICAL HISTORY: Iron deficiency anemia and elevated platelets. PROCEDURE: The procedure including the risks and complications were explained to the patient, and informed conse nt was obtained. The patient was placed on the CT scan table in the prone position. Conscious sedation for a total [id number] was performed, administered by the radiology nurse, with the patient consistently monitored throughout the duration of the exam in stable condition. Noncontrasted CT images were obtained through the pelvis. An area was marked overlying the RIGHT germain c bone, and the area was meticulously prepped and draped in usual sterile fashion. The skin and subcutaneous tissues were infiltrated with buffered 1% lidocaine for local anesthesia. After a small skin incision was made, an 11-gauge needle was advanced and positioning was confirmed w ith axial CT images. Approximately 10 milliliters of bone marrow aspirate was obtained. The needle was then further advanced, and a bone marrow biopsy was performed. The needle was removed, and hemost asis was achieved with direct pressure. The patient tolerated the procedure well and without immediate complication. The patient was transported to radiology nurses holding area for further joanne toring prior to discharge. IMPRESSION: Technically successful percutaneous bone marrow aspiration and biopsy. Pathology results are pending.
== END 2019-09-29 12:00 | disposition home or self-care (01) ==
LOC: CT 08:13
PROVIDERS: ATTEND Internal Medicine Hematology & Oncology
DX: D47.3 Essential (hemorrhagic) thrombocythemia (principal); D64.9 Anemia, unspecified; I12.9 Hypertensive chronic kidney disease with stage 1 through stage 4 chronic kidney disease, or unspecified chronic kidney disease; E11.22 Type 2 diabetes mellitus with diabetic chronic kidney disease; N18.3 Chronic kidney disease, stage 3 (moderate); J44.9 Chronic obstructive pulmonary disease, unspecified; I48.91 Unspecified atrial fibrillation; E78.5 Hyperlipidemia, unspecified; Z79.01 Long term (current) use of anticoagulants; Z79.82 Long term (current) use of aspirin; Z79.899 Other long term (current) drug therapy; Z86.73 Personal history of transient ischemic attack (TIA), and cerebral infarction without residual deficits; Z88.5 Allergy status to narcotic agent; Z88.8 Allergy status to other drugs, medicaments and biological substances
CPT/HCPCS: 20225; 77012; 85097; 88184; 88237; 88264; 88280; 88305; 88311; 88313; J2250; J3010

== ENCOUNTER 2019-10-28 15:36 | Outpatient (CLI) | payer MEDICARE, BC ==
--- NOTE | 2019-10-28 16:10 | RAD ---
Exam:3 views right foot HISTORY: Pain. Twisting injury 3 days ago. Fourth metatarsal and dorsal foot pain. COMPARISON: 11/06/2018 FINDINGS: Diffuse bony mineralization. Stable mild degenerative change in the first interphalangeal j oint space and first metatarsal phalangeal joint space. No fracture, cortical irregularity. No periosteal reaction. Lisfranc alignment is maintained. There is midfoot soft tissue swelling. IMPRESSION: 1. Diffuse bony mineralization. No fracture. Nonspecific midfoot soft tissue swelling.
== END 2019-10-28 15:37 | disposition home or self-care (01) ==
LOC: BICRAD 15:36
PROVIDERS: ATTEND Family Medicine
DX: M79.671 Pain in right foot (principal); M79.89 Other specified soft tissue disorders
CPT/HCPCS: 80053; 82248; 83615; 84100; 84550

== ENCOUNTER 2019-12-02 12:18 | Inpatient (IN) | payer MEDICARE, BC ==
[2019-12-02 13:07] LABS: Hemoglobin 7.5 g/dL (12.0-16.0); Mean Corpuscular HGB CONC 29.2 g/dL (32.0-36.0); Mean Corpuscular Hemoglobin 31.3 pg (27.0-31.0); Mean Platelet Volume 9.5 fL (7.4-10.4); Platelet Count 1509 thou/uL (130-400); RBC Distribution Width 35.5 % (11.5-14.5); Red Blood Cell (RBC) Count 2.38 mill/uL (4.20-5.40); Reflex for Review?? YES
[2019-12-02 13:08] LABS: #Eosinphils 0.1 thou/uL (0.0-0.7); #Lymphocytes 0.7 thou/uL (1.20-3.40); #Monocytes 1.5 thou/uL (0.11-0.59); #Neutrophils 8.8 thou/uL (1.40-6.50); %Basophils 0.4 % (0.0-1.0); %Eosinophils 0.7 % (0.0-10.0); %Lymphocytes 5.9 % (21.0-51.0); %Monocytes 13.1 % (0.0-10.0); %Neutrophils 79.9 % (42.0-75.0)
[2019-12-02 13:13] LABS: Anisocytosis MODERATE=16-30 cells (100X) (0-5/hpf); Hypochromia SLIGHT = 6-15 cells (100X) (0-5/hpf); Large Platelets MODERATE; MDiff Complete? YES; Platelet Morphology Comment Appears Increased; Polychromasia MARKED = >4 cells (100X) (0-2/hpf); Schistocytes SLIGHT = 2-5 cells (100X) (0-1/hpf)
[2019-12-02 13:16] LABS: ALT (SGPT) 11 U/L (8-55); AST (SGOT) 21 U/L (5-34); Albumin 2.9 g/dL (3.4-4.8); Alkaline Phosphatase 66 U/L (40-110); Anion Gap 14 mmol/L (10-20); BUN (Urea Nitrogen) 32 mg/dL (9.8-20.1); Bilirubin, Total 0.6 mg/dL (0.2-1.2); CK (CPK) 46 U/L (29-168); Calc. Creatinine Clearance 0 mL/min (70-130); Calcium 8.3 mg/dL (7.8-10.44); Carbon Dioxide 22 mmol/L (23-31); Chloride 106 mmol/L (98-107); Estimated GFR-MDRD 33; Globulin 3.8 g/dL (2.4-3.5); Glucose 185 mg/dL (80-115); Potassium 4.2 mmol/L (3.5-5.1); Protein, Total 6.7 g/dL (6.0-8.3); Sodium 138 mmol/L (136-145)
--- NOTE | 2019-12-02 13:28 | RAD ---
XR Chest 1 View Portable HISTORY: Weakness COMPARISON: 09/10/2019 FINDINGS: The heart size is normal. Left-sided pacemaker device and chronic parenchymal changes are a gain seen. The lungs are well expanded without focal areas of consolidation, pneumothorax or pleural effusions. IMPRESSION: No radiographic evidence of acute cardiopulmonary process.
[2019-12-02 13:49] LABS: Bilirubin Negative (Negative); Blood, Urine Negative (Negative); Clarity Clear (Clear); Glucose, Urine (Dipstick) Negative (Negative); Leukocyte Trace (Negative); Nitrite Negative (Negative); Protein, Urine (Dipstick) Negative (Neg-Trace)
[2019-12-02 13:50] LABS: Bacteria/HPF None Seen HPF (None Seen); RBC/HPF None Seen HPF (0-3); Squamous Epithelial 0-3 HPF (0-3); WBC/HPF None Seen HPF (0-3)
--- NOTE | 2019-12-02 15:48 | PDOC.FPRHP ---
- History of Present Illness Chief Complaint: SOB History of Present Illness: 69 y/o F with pmhx of throbocytosis and a blood dyscrasia, COPD, and HFpEF presents to ED from Dr. Singh's office after she was too weak to get out her vehicle to go into the office for her weekly treatment of chemo. Last Chemo last Sunday. Pt c/o worsening SOB over the past 2 weeks. C/o N/D. Denies V, CP. C/o R shoulder and neck pain. Denies any recent falls. Admits to RUQ abd pain. Pt had an echo in Sep 2018 showing 55-60 EF, mitral annular calcifications. LA moderately dilated. ED course: H/H: 7.5/25.5 Plt 1509 BNP 790 Trop 0.[address] Singh consulted and recommended to have Mary Askew follow pt in hx. - Allergies/Adverse Reactions Allergies Allergy/AdvReac Type Severity Reaction Status Date / Time amlodipine Allergy Verified 03/12/13 17:19 lisinopril Allergy Verified 03/12/13 17:19 morphine Allergy Verified 03/12/13 17:15 - Home Medications Medication Instructions Recorded Confirmed Type Cholecalciferol (Vitamin D3) 2,000 unit PO DAILY 03/12/13 09/26/19 History [Vitamin D3] Docusate [Colace] 100 mg PO Q2DAYS 03/12/13 09/26/19 History Rosuvastatin [Crestor] 10 mg PO HS 03/12/13 09/26/19 History Carvedilol 25 mg PO BID 06/10/14 09/26/19 History Amiodarone [Cordarone] 1 tab PO BID 09/10/19 09/26/19 History Apixaban [Eliquis] 2.5 mg PO BID 09/10/19 09/26/19 History Ascorbic Acid [Vitamin C] 500 mg PO DAILY 09/10/19 09/26/19 History Aspirin [Ecotrin Low Strength] 81 mg PO HS 09/10/19 09/26/19 History Folic Acid 0.4 mg PO HS 09/10/19 09/26/19 History Hydroxyurea [Hydrea] 500 mg PO ASDIR 09/10/19 09/26/19 History Mirabegron [Myrbetriq] 1 tab PO DAILY 09/10/19 09/26/19 History Ipratropium/Albuterol Sulfate 3 ml NEB BID #60 neb 09/11/19 09/26/19 Rx [Duoneb] Nebulizer Accessories [Sootheneb 1 each MC DAILY #1 each 09/11/19 09/26/19 Rx [id number] Adult Mask] Nebulizer Accessories [Sootheneb 1 each MC BID #1 each 09/11/19 09/26/19 Rx [id number] Med Cup] Nebulizer Accessories [Sootheneb 1 each MC BID #1 each 09/11/19 09/26/19 Rx [id number] Mesh Cap] Nebulizer [Sootheneb Mesh 1 each MC ASDIR #1 each 09/11/19 09/26/19 Rx Nebulizer] Triamterene/Hydrochlorothiazid 1 tab PO DAILY 09/11/19 09/26/19 History [Triamterene-Hctz 37.5-25 mg Tb] - History PMHx: thrombocytosis, HFpEF, COPD, HTN, a fib, HLD, DM, Previous CVA, blood cancer on chemotherapy protocol weekly. PSHx: cholecystectomy, Pericardial Window for Hemopericardium colonoscopy 2013 normal. FHx: Mother (CVA, DM) Sister (CVA, DM) Social: Remote Tobacco Abuse - currently Denies x3. Allergies: Amlodipine, Lisinopril, Morphine - Review of Systems General: reports: fatigue. denies: fever/chills Eyes: denies: eye pain ENT: denies: nasal congestion Respiratory: reports: shortness of breath, exercise intolerance. denies: cough , congestion Cardiovascular: reports: palpitation. denies: chest pain, edema Gastrointestinal: reports: nausea, diarrhea, abdominal pain. denies: vomiting, GI bleeding Genitourinary: denies: dysuria Skin: denies: rashes Musculoskeletal: reports: pain (R shoulder and neck). denies: swelling Neurological: reports: weakness (generalized). denies: numbness, syncope - Vital signs VITAL SIGNS SunDec 02, 2019 16:03 SY Novak, Meaghan BP: 127/63, Pulse: 68, Resp: 24, Temp: 100.9 (Oral), Pain: 4, O2 sat: 98 on ( Room Air), Time: 12/02/2019 16:03. weight: 50kg - Physical Exam Constitutional: NAD, awake, alert and oriented, well developed HEENT: normocephalic and atraumatic, no scleral icterus, grossly normal vision, TM's clear and intact, grossly normal hearing, MMM, oropharynx clear, other ( dentures) Neck: supple, FROM, trachea midline, no LAD, other (+ JVD) Chest: no-tender to palpation Heart: RRR, no murmurs/rubs/gallops, pulses present, no edema Lungs: good air movement, other (Bibasial crackles Tachypnea) Abdomen: soft, bowel sounds present, other (Small, mobile 2 cm circular nodule palpated midline in epigastric region.) Musculoskeletal: normal structure, ROM grossly normal Neurological: normal sensation -Neurological: chronic facial droop in Right side. Skin: good turgor, capillary refill <2 seconds, no jaundice -Heme/Lymphatic: petechia over abdomen Psychiatric: normal mood and affect, good judgment and insight, intact recent and remote memory FMR H&P: Results - Labs Result Diagrams: 12/02/19 12:34 12/02/19 12:34 Lab results: WBC 11.0 thou/uL (4.8-10.8) H 12/02/19 12:34 Hgb 7.5 g/dL (12.0-16.0) L 12/02/19 12:34 Hct 25.5 % (36.0-47.0) L 12/02/19 12:34 MCV 107.0 fL (78.0-98.0) H 12/02/19 12:34 Plt Count 1509 thou/uL (130-400) H* 12/02/19 12:34 Neutrophils % 79.9 % (42.0-75.0) H 12/02/19 12:34 Sodium 138 mmol/L (136-145) 12/02/19 12:34 Potassium 4.2 mmol/L (3.5-5.1) 12/02/19 12:34 Chloride 106 mmol/L (98-107) 12/02/19 12:34 Carbon Dioxide 22 mmol/L (23-31) L 12/02/19 12:34 BUN 32 mg/dL (9.8-20.1) H 12/02/19 12:34 Creatinine 1.54 mg/dL (0.6-1.1) H 12/02/19 12:34 Glucose 185 mg/dL (80-115) H 12/02/19 12:34 Lactic Acid 1.0 mmol/L (0.5-2.2) 12/02/19 13:04 Calcium 8.3 mg/dL (7.8-10.44) 12/02/19 12:34 Total Bilirubin 0.6 mg/dL (0.2-1.2) 12/02/19 12:34 AST 21 U/L (5-34) 12/02/19 12:34 ALT 11 U/L (8-55) 12/02/19 12:34 Alkaline Phosphatase 66 U/L (40-110) 12/02/19 12:34 Creatine Kinase 46 U/L (29-168) 12/02/19 12:34 B-Natriuretic Peptide 790.7 pg/mL (0-100) H 12/02/19 12:34 Serum Total Protein 6.7 g/dL (6.0-8.3) 12/02/19 12:34 Albumin 2.9 g/dL (3.4-4.8) L 12/02/19 12:34 Urine Ketones Negative mg/dL (Negative) 12/02/19 13:35 Urine Blood Negative (Negative) 12/02/19 13:35 Urine Nitrite Negative (Negative) 12/02/19 13:35 Ur Leukocyte Esterase Trace (Negative) H 12/02/19 13:35 Urine RBC None Seen HPF (0-3) 12/02/19 13:35 Urine WBC None Seen HPF (0-3) 12/02/19 13:35 Ur Squamous Epith Cells 0-3 HPF (0-3) 12/02/19 13:35 Urine Bacteria None Seen HPF (None Seen) 12/02/19 13:35 - Radiology Interpretation Chest x-ray Status: report reviewed by me (no acute findings) FMR H&P: A/P - Problem List (1) Symptomatic anemia Current Visit: Yes Status: Acute Code(s): D64.9 - ANEMIA, UNSPECIFIED (2) Tachypnea Current Visit: Yes Status: Acute Code(s): R06.82 - TACHYPNEA, NOT ELSEWHERE CLASSIFIED (3) Fever Current Visit: Yes Status: Acute Code(s): R50.9 - FEVER, UNSPECIFIED (4) Protein malnutrition Current Visit: No Status: Acute Code(s): E40 - KWASHIORKOR (5) A-fib Current Visit: No Status: Chronic Code(s): I48.91 - UNSPECIFIED ATRIAL FIBRILLATION Qualifiers: Atrial fibrillation type: unspecified chronic Qualified Code(s): I48.20 - Chronic atrial fibrillation, unspecified; I48.2 - Chronic atrial fibrillation (6) COPD (chronic obstructive pulmonary disease) Current Visit: No Status: Chronic Qualifiers: Emphysema type: unspecified (7) Essential thrombocytosis Current Visit: No Status: Chronic Code(s): D47.3 - ESSENTIAL (HEMORRHAGIC) THROMBOCYTHEMIA (8) HLD (hyperlipidemia) Current Visit: No Status: Chronic Code(s): E78.5 - HYPERLIPIDEMIA, UNSPECIFIED Qualifiers: Hyperlipidemia type: unspecified Qualified Code(s): E78.5 - Hyperlipidemia , unspecified (9) HTN (hypertension) Current Visit: No Status: Chronic Code(s): I10 - ESSENTIAL (PRIMARY) HYPERTENSION Qualifiers: Hypertension type: essential hypertension Qualified Code(s): I10 - Essential (primary) hypertension - Plan 69 y/o F admitted for treatment of symptomatic anemia 1. Symptomatic anemia - h/h 7.5/25.5 - given 2 units pRBC's in ED - ordered IV 40 mg lasix as she is in acute CHF exacerbation as well. 2. Fever and tachypnea - started on vanc and zosyn - zosyn renally dosed and pharmacy to dose vanc. - hx of immunocompromised due to chemotherapy - T max 100.9 F - Blood ccx's pending 3. Acute HFpEF exacerbation - daily weights, strict I/O's. - JVD and bibasilar crackles - lasix 40 IV given now with the 2 units pRBCs - will give lasix in AM if still fluid overloaded. - Echo in 09/04: EF 55-60%, mitral annular calcifications. 4. Thrombocytosis, hx of blood dyscrasia being treated by Dr. Singh - Oncology consulted, appreciate recommendations 5. hx of COPD - duonebs Q6hr MARISOL - will consider addition of steroids is duonebs improve pt's respiratory status - SOB most likely due to symptomatic anemia. 6. A fib - continue eliquis and home medications - med rec pending 7. hx of CVA - speech deficit present, chronic. Code status: full code diet: HH, fluid restriction <1500 mL daily dvt ppx: eliquis Dispo: stable, admit to medical, oncology consulted. FMR H&P: Upper Level - Plan Date/Time: 12/02/19 1547 I, Shola Price PGY2, have evaluated this patient and agree with findings/ plan as outlined by commissioner of internal revenue resident. Pertinent changes/additions are listed here. 69yo F with pmh of unknown bone cancer presents for 2 week hx of generalized fatigue and SOB. She also has hx of CHF and COPD. Reports last sunday her hydroxyurea was DCd and another was doubled. Since then her fatigue has increased markedly. On exam patient had isolated fever up to 100.8 in ED. She also was tachypneic around 20 though she was satting well on RA. She had fine crackles in bilateral lung bases. No LE edema. Findings include normal CXR, elevated platelets at 1500, normal WBC but with neutrophilia. EKG wnl ( other than evidence of pacer), hgb 7.5 ASSESMENT AND PLAN SIRS without a source in a chemotherapy patient A- isolated fever of 100.8 and tachypnea. has SOB but CXR wnl and exam more consistent with overload. On chemotherapy and so immunosupressed. P- BCx, UCx -Vanc and Zosyn renally dosed -f/u cbc in AM Symptomatic anemia A- anemia 2/2 hematologic malignancy. pt has ordered 2u PRBC in ED. Onc consulted from ED as well. P- transfuse 2u prbc and recheck h/h -consult hem/onc -will give lasix with PRBC as pt has hx of CHF HFpEF exacerbation A- volume overloaded on exam, crackles in lungs, increased JVD. BNP is elevated , unsure of baseline. Last echo shows EF 55-60% in August 2019. At last admission a single dose of lasix was enough to improve pt. P- Lasix 40mg IV x1 -strict I/O, fluid restriction diet to 1500ml, daily weights -will consider adding more tomorrow if still overloaded Hx of COPD A- does not seem to be in exacerbation, no wheezing. P- considering frailty of pt will schedule duonebs and asses for improvement after each neb, will consider steroids tomorrow if pt feels they helped much. Thrombocytosis 2/2 hematologic malignancy A- unknown what malignancy she has specifically. unknown what exactly her med changes were P- consult heme/onc CODE: FULL Addendum - Attending - Attending Attestation Date/Time: 12/02/19 257 I personally evaluated the patient and discussed the management with Dr. Moreira/ Albert I agree with the History, Examination, Assessment and Plan documented above with any addition or exceptions noted below. 69 yo WM with PMH known myelodysplatic disorder and chronic thrombocytosis. Presents with 1 month hx of worsening SOB and generalized weakness. States this started with her oncologist change her current medication regimen. Denies fever/ chills, leg swelling, or recent travel/COVID exposure. Was sent from infusion center 2/2 sx today. Exam shows JVD, faint lung base crackles, and dry MM. Labs show worsening anemia and marked thrombocytosis (1500). BNP elevated. EF normal on last echo 3 months ago. CXR negative. EKG atrial paced. Admit for symptomatic anemia and possible HF exacerbation. Will order VQ scan of lungs due to high risk for VTE but low GFR. Oncology consulted. Will transfuse 2U PRBCs with 1 dose of lasix between units. Blood/Urine Cx and empiric abx for fever w/o source. Inpatient, medical, >2 midnights.
[2019-12-02] MEDS ORDERED: Acetaminophen 500 MG TAB ONE (16:05)
[2019-12-02] MEDS ORDERED: Furosemide 20 MG/2 ML VIAL SLOW IVP SCH ×2 (17:00→17:29)
[2019-12-02] MEDS ORDERED: Ondansetron ODT 4 MG TAB PO PRN (17:08)
[2019-12-02] MEDS ORDERED: Piperacillin/Tazobactam 2.25 GM in Sodium Chloride 0.9% 100 ML IVPB SCH (18:00)
[2019-12-02] MEDS ORDERED: Piperacillin/Tazobactam 3.375 GM in Sodium Chloride 0.9% 100 ML IVPB SCH ×2 (18:00→19:15)
[2019-12-02] MEDS ORDERED: Vancomycin 1 GM in Premix Bag 1 BAG IVPB SCH ×2 (19:45→21:00)
[2019-12-02] MEDS: Apixaban 2.5 MG TAB PO SCH (21:22)
[2019-12-03 00:05] LABS: Hemoglobin 8.1 g/dL (12.0-16.0)
[2019-12-03] MEDS: Piperacillin/Tazobactam 3.375 GM in Sodium Chloride 0.9% 100 ML IVPB SCH ×2 (02:24→08:43)
[2019-12-03] MEDS: Aspirin 325 mg Enteric Coated Tablet PO SCH ×2 (04:36→08:44)
[2019-12-03 06:34] LABS: Hemoglobin 8.7 g/dL (12.0-16.0); Mean Corpuscular Hemoglobin 33.9 pg (27.0-31.0); Mean Platelet Volume 9.8 fL (7.4-10.4); Platelet Count 1252 thou/uL (130-400); RBC Distribution Width 31.3 % (11.5-14.5); Red Blood Cell (RBC) Count 2.56 mill/uL (4.20-5.40); White Blood Cell (WBC) Count 10.6 thou/uL (4.8-10.8)
[2019-12-03 06:44] LABS: ALT (SGPT) 9 U/L (8-55); AST (SGOT) 17 U/L (5-34); Albumin 2.7 g/dL (3.4-4.8); Alkaline Phosphatase 67 U/L (40-110); Anion Gap 14 mmol/L (10-20); BUN (Urea Nitrogen) 35 mg/dL (9.8-20.1); Bilirubin, Total 0.6 mg/dL (0.2-1.2); Calc. Creatinine Clearance 20 mL/min (70-130); Carbon Dioxide 22 mmol/L (23-31); Chloride 106 mmol/L (98-107); Estimated GFR-MDRD 26; Globulin 3.5 g/dL (2.4-3.5); Glucose 244 mg/dL (80-115); Protein, Total 6.2 g/dL (6.0-8.3); Sodium 138 mmol/L (136-145)
--- NOTE | 2019-12-03 06:51 | PDOC.FM ---
- Subjective Subjective: Pt states SOB present and worse when lying flat, or moving around. Pt on RA and stating normally while speaking with me. Pt usually takes epogen on Tuesdays, and did not receive her injection yesterday. Denies CP. States neck pain is much improved with lidocaine patch. Was SOB over night, lasix was not given that was ordered upon admission, and night team instructed nursing staff to give the lasix. Pt's SOB improved. Hg improved to 8.7, second transfusion was held. - Objective MAR Reviewed: Yes Vital Signs & Weight: Vital Signs (12 hours) Temp Pulse Resp BP Pulse Ox 12/03/19 00:05 97.4 F L 71 20 112/50 L 97 12/02/19 23:21 96 12/02/19 20:03 100 12/02/19 19:49 97.5 F L 64 22 H 166/61 H 93 L 12/02/19 19:47 72 22 H 93 L Weight Weight 46.992 kg Result Diagrams: 12/03/19 05:56 12/03/19 05:56 Phys Exam - Physical Examination Constitutional: NAD HEENT: moist MMs, sclera anicteric Neck: no nodes, full ROM Respiratory: no wheezing, no rales, no rhonchi, clear to auscultation bilateral Cardiovascular: RRR, no rub Gastrointestinal: soft, non-tender, no distention, positive bowel sounds palpable 2 cm nodule midline epicastric area, mobile and soft. Musculoskeletal: no edema, pulses present Neurological: non-focal, moves all 4 limbs speech slurring, chronic Psychiatric: normal affect, A&O x 3 Skin: no rash, normal turgor, cap refill <2 seconds Dx/Plan (1) Symptomatic anemia Code(s): D64.9 - ANEMIA, UNSPECIFIED Status: Acute (2) Tachypnea Code(s): R06.82 - TACHYPNEA, NOT ELSEWHERE CLASSIFIED Status: Acute (3) Fever Code(s): R50.9 - FEVER, UNSPECIFIED Status: Acute (4) Protein malnutrition Code(s): E40 - KWASHIORKOR Status: Acute (5) A-fib Code(s): I48.91 - UNSPECIFIED ATRIAL FIBRILLATION Status: Chronic Qualifiers: Atrial fibrillation type: unspecified chronic Qualified Code(s): I48.20 - Chronic atrial fibrillation, unspecified; I48.2 - Chronic atrial fibrillation (6) COPD (chronic obstructive pulmonary disease) Status: Chronic Qualifiers: Emphysema type: unspecified (7) Essential thrombocytosis Code(s): D47.3 - ESSENTIAL (HEMORRHAGIC) THROMBOCYTHEMIA Status: Chronic (8) HLD (hyperlipidemia) Code(s): E78.5 - HYPERLIPIDEMIA, UNSPECIFIED Status: Chronic Qualifiers: Hyperlipidemia type: unspecified Qualified Code(s): E78.5 - Hyperlipidemia , unspecified (9) HTN (hypertension) Code(s): I10 - ESSENTIAL (PRIMARY) HYPERTENSION Status: Chronic Qualifiers: Hypertension type: essential hypertension Qualified Code(s): I10 - Essential (primary) hypertension - Plan Plan: 69 y/o F admitted for treatment of symptomatic anemia 1. Symptomatic anemia - h/h 7.5/25.5, 8.7/27.1 - given 1 units pRBC's in ED - given IV 40 mg lasix as she is in acute CHF exacerbation as well. 2. Fever and tachypnea - started on vanc and zosyn - zosyn renally dosed and pharmacy to dose vanc. - hx of immunocompromised due to chemotherapy - T max 100.9 F - Blood ccx's no growth to date. - V/Q scan pending to rule out PE. 3. Acute HFpEF exacerbation - daily weights, strict I/O's. - JVD and bibasilar crackles, improved today. - lasix 40 IV given now with the 1 units pRBCs - hold further lasix unless clinically indicated. - Echo in 09/04: EF 55-60%, mitral annular calcifications. 4. Thrombocytosis, hx of blood dyscrasia being treated by Dr. Singh - Oncology consulted, appreciate recommendations 5. CRIS - will monitor for improvement - likely worse today due to lasix given 12/01. - continue fluid restriction, but hold lasix unless clinically necessary 6. hx of COPD - duonebs Q6hr MARISOL - will consider addition of steroids is duonebs improve pt's respiratory status - SOB most likely due to symptomatic anemia. 7. A fib - continue eliquis and home medications - med rec pending 8. hx of CVA - speech deficit present, chronic. Code status: full code diet: HH, fluid restriction <1500 mL daily dvt ppx: eliquis Dispo: stable, admit to medical, oncology consulted. Addendum - Attending - Attending Attestation Date/Time: 12/03/19 1464 I personally evaluated the patient and discussed the management with Dr. Moreira. I agree with the History, Examination, Assessment and Plan documented above with any addition or exceptions noted below.
[2019-12-03] MEDS ORDERED: Epoetin (ESRD) 20,000 UNITS/ML SC SCH (08:30)
[2019-12-03] MEDS: Acetaminophen 325 MG TAB PO PRN (08:44)
[2019-12-03] MEDS: Apixaban 2.5 MG TAB PO SCH ×2 (08:44→20:40)
[2019-12-03] MEDS ORDERED: Morphine 2 MG/ML SYRINGE SLOW IVP PRN (08:47)
[2019-12-03 08:57] LABS: Anisocytosis MODERATE=16-30 cells (100X) (0-5/hpf); Band 3 % (5-11); Large Platelets MODERATE; Lymphocytes 4 % (21-51); MDiff Complete? YES; Monocytes 12 % (0-10); Neutrophil 81 % (42-75); Platelet Morphology Comment Appears Increased; Polychromasia MARKED = >4 cells (100X) (0-2/hpf)
[2019-12-03] MEDS ORDERED: Enoxaparin Sodium 30 MG/0.3 ML SYRINGE SC SCH (09:00)
[2019-12-03] MEDS ORDERED: Lidocaine 5% Patch TD SCH (09:00)
[2019-12-03] MEDS ORDERED: Prevnar 13-Val Conj/PF 0.5 ML SYRINGE IM ONE (09:00)
[2019-12-03] MEDS ORDERED: Anagrelide HCl 0.5 MG CAP PO SCH ×2 (11:00→13:30)
--- NOTE | 2019-12-03 11:28 | CON ---
DATE OF CONSULTATION: REASON FOR CONSULTATION: Myeloproliferative disease. HISTORY OF PRESENT ILLNESS: Ms. Turner is a pleasant 69-year-old female, well known to our clinic, who has a myeloproliferative disorder, essential thrombocytosis. She was treated with Hydrea initially, but began to have leukopenia secondary to high-dose Hydrea, so she was recently switched to anagrelide. She had a bone marrow in September of this year, which showed a mildly hypercellular bone marrow consistent with possible polycythemia vera. There was no evidence of reticulin fibrosis at that time. Cytogenetics from the bone marrow biopsy were concerning for evolving myelofibrosis. She also has chronic kidney disease and history of iron-deficient anemia. She receives 40,000 units of Procrit weekly in our office for her anemia. She remains on anticoagulation with Eliquis for AFib and pacemaker placement. She had a recent cauterization of her nose for persistent nosebleed. She is followed weekly by our clinic and presented to our clinic yesterday with shortness of breath. She was unable to get out of the truck and was sent to the ER. She states her shortness of breath started over a week prior. When seen last week, she had a platelet count of 1200. Her Hydrea was discontinued and her anagrelide was increased to 1 mg b.i.d. Once here in the hospital, she was noted to be anemic with a hemoglobin of 7.5 and her platelet count was 1.5 million. She was transfused 1 unit of packed RBCs and given 40 mg dose of Lasix. Her shortness of breath has improved dramatically. Her BNP on arrival was 790. She is resting comfortably at bedside. Her only complaint is right neck pain and occasional shortness of breath with exertion. PAST MEDICAL HISTORY: 1. Myeloproliferative disease consistent with essential thrombocytosis and possible polycythemia vera. 2. Chronic kidney disease. 3. Atrial fibrillation. 4. History of CVA. 5. Iron-deficiency anemia. 6. Hyperlipidemia. 7. Hypertension. PAST SURGICAL HISTORY: 1. Pacemaker placement. 2. Cholecystectomy. 3. History of pericardial window in 2013. 4. Renal stent placement. 5. Hysterectomy. ALLERGIES: TO AMLODIPINE, LISINOPRIL, AND MORPHINE. HOME MEDICATIONS: 1. Anagrelide 1 mg p.o. b.i.d. 2. Aspirin 81 mg daily. 3. Carvedilol 25 mg b.i.d. 4. Colace daily. 5. Eliquis 2.5 mg b.i.d. 6. Folic acid daily. 7. Myrbetriq 25 mg daily. 8. Rosuvastatin 10 mg daily. 9. Triamterene 25 mg daily. 10. MVI daily. FAMILY HISTORY: Noncontributory. SOCIAL HISTORY: She is , has one child, lives with her . No alcohol, tobacco or illicit drug use. REVIEW OF SYSTEMS: A 10-point review of systems is negative except for noted in HPI. PHYSICAL EXAMINATION: VITAL SIGNS: Temperature is 98.0, pulse is 72, respiratory rate is 20, and blood pressure is 121/71. She has 100% O2 sat on 1 L nasal cannula. GENERAL: Well-developed, well-nourished female, in no acute distress. HEENT: Normocephalic and atraumatic. Pupils are equal and reactive to light. NECK: Supple. CV: Regular rate and rhythm. RESPIRATORY: Lungs are clear to auscultation. ABDOMEN: Soft and nontender. Bowel sounds are positive. EXTREMITIES: No clubbing or cyanosis. SKIN: No rash. HEMATOLOGICAL: No petechiae or purpura. NEUROLOGICAL: She has left facial droop chronically, but no other focal findings. PERTINENT LABS AND X-RAYS: WBCs are 10.6, hemoglobin is 8.7, hematocrit is 27.1, platelet count is 1252. Sodium is 138, potassium is 4.0, chloride is 106, CO2 is 22, BUN is 35, and creatinine is 1.94. Lactic acid is 1, calcium is 8, total bilirubin is 0.6, AST is 17, ALT is 9, and alk phos is 67. Troponin is negative. BNP is 790.7. Serum total protein is 6.2, albumin is 2.7, and globulin is 3.5. Urine was negative. Chest x-ray showed no acute findings. ASSESSMENT: 1. Acute heart failure exacerbation. 2. Myeloproliferative disorder. 3. Acute on chronic kidney disease. 4. Symptomatic anemia. DISCUSSION: The patient is improved clinically with a dose of Lasix and 1 unit of packed RBCs. She was due for her Retacrit yesterday. She receives 40,000 units, that will be held until she has been discharged and she can receive that in the outpatient setting. Her platelets remain elevated and I will resume her anagrelide. She was having shortness of breath and heart failure like symptoms prior to initiation of increased dose of anagrelide, so we will continue to watch her closely for any exacerbation. She can be discharged home when she is stable and will be seen in our clinic next week. Thank you for the consult. Job ID: [id number]
[2019-12-03] MEDS ORDERED: cefTRIAXone\\ROCEPHIN 1 GM in Sodium Chloride 0.9% 100 ML IVPB SCH (12:00)
[2019-12-03] MEDS ORDERED: EPOETIN ALFA-EPBX (ESRD) 4,000 UNIT/ML VIAL SC SCH (12:00)
[2019-12-03] MEDS ORDERED: Acetaminophen 500 MG TAB PO PRN (13:13)
[2019-12-03] MEDS: Docusate 100 MG CAP PO SCH (13:48)
--- NOTE | 2019-12-03 13:53 | NM ---
VQ SCAN: HISTORY: Shortness of breath. TECHNIQUE: A ventilation perfusion scan was performed using 9.8 mCi Xenon-133 by inhalation for the ventilation study followed by the intravenous administration of 5.5 mCi technetium-99m MAA for the perfusion scan . FINDINGS: Correlation made with the chest radiograph from the previous day. There is fairly homogeneous tracer distribution on the ventilation study with a focal area of left-si ded photopenia due to the pacemaker device. There is tracer retention on the washout phase of the payton tilation study consistent with COPD. The perfusion scan demonstrates mild inhomogeneity without pleural based, wedge-shaped, mismatched, s egmental or subsegmental defects. IMPRESSION: Low probability for pulmonary embolism. POS: [facility]
[2019-12-03] MEDS: Rosuvastatin 10 MG TAB PO SCH (20:39)
[2019-12-03] MEDS: Carvedilol 25 MG TAB PO SCH (20:39)
[2019-12-03] MEDS: Folic Acid 1 MG TAB PO SCH (20:39)
[2019-12-03] MEDS: Morphine 2 MG/ML SYRINGE SLOW IVP PRN (20:40)
[2019-12-03] MEDS: Lidocaine Patch Removal 1 EACH TOP SCH (20:41)
[2019-12-03] MEDS ORDERED: ANAGRELIDE HCL 1 MG PO SCH (21:00)
[2019-12-03] MEDS ORDERED: Vancomycin HCl 500 MG in Sodium Chloride 0.9% 100 ML IVPB SCH (21:00)
[2019-12-04] MEDS: Morphine 2 MG/ML SYRINGE SLOW IVP PRN ×2 (00:40→18:14)
[2019-12-04 06:29] LABS: ALT (SGPT) 8 U/L (8-55); AST (SGOT) 20 U/L (5-34); Albumin 2.7 g/dL (3.4-4.8); Alkaline Phosphatase 66 U/L (40-110); Anion Gap 15 mmol/L (10-20); BUN (Urea Nitrogen) 37 mg/dL (9.8-20.1); Bilirubin, Total 0.2 mg/dL (0.2-1.2); Calc. Creatinine Clearance 21 mL/min (70-130); Calcium 7.9 mg/dL (7.8-10.44); Carbon Dioxide 23 mmol/L (23-31); Chloride 105 mmol/L (98-107); Estimated GFR-MDRD 27; Globulin 3.6 g/dL (2.4-3.5); Glucose 276 mg/dL (80-115); Potassium 4.3 mmol/L (3.5-5.1); Protein, Total 6.3 g/dL (6.0-8.3); Sodium 139 mmol/L (136-145)
[2019-12-04] MEDS ORDERED: Baclofen 10 MG TAB PO PRN (06:43)
[2019-12-04] MEDS ORDERED: Dextrose 5% in Water 1,000 ML IV PRN (06:50)
[2019-12-04] MEDS ORDERED: Dextrose 50% Abboject 50 ML SYRINGE SLOW IVP PRN (06:50)
--- NOTE | 2019-12-04 06:56 | PDOC.FM ---
- Subjective Subjective: Pt c/o R sided neck pain and muscle spasm. She has had this pain since admission. requesting lidocaine patch and pain medications. Pt reports no adverse reaction to muscle relaxer in past. elevated blood sugars. no known hx of DM, ordered a1c. required 1 L NC O2 after 86% o2 sat. - Objective MAR Reviewed: Yes Vital Signs & Weight: Vital Signs (12 hours) Temp Pulse Resp BP Pulse Ox 12/04/19 06:39 64 16 12/04/19 04:00 99.0 F 62 17 127/55 L 95 12/04/19 00:00 99.3 F 60 16 127/71 86 L 12/03/19 23:19 61 16 12/03/19 20:00 98.2 F 68 16 143/52 H 92 L Weight Admit Weight 46.992 kg Weight 46.675 kg I&O: 12/02/19 12/03/19 12/04/19 06:59 06:59 06:59 Intake Total 900 580 Balance 900 580 Result Diagrams: 12/04/19 07:13 12/04/19 05:47 Phys Exam - Physical Examination Constitutional: NAD HEENT: PERRLA, moist MMs, sclera anicteric Neck: no nodes, full ROM Respiratory: no wheezing, no rales, no rhonchi, clear to auscultation bilateral Cardiovascular: RRR, no rub Gastrointestinal: soft, non-tender, no distention, positive bowel sounds Musculoskeletal: no edema, pulses present r sided hypertonicity to trapezius and scalenes. Neurological: non-focal, moves all 4 limbs Psychiatric: normal affect, A&O x 3 Skin: no rash, normal turgor, cap refill <2 seconds Dx/Plan (1) Symptomatic anemia Code(s): D64.9 - ANEMIA, UNSPECIFIED Status: Acute (2) Tachypnea Code(s): R06.82 - TACHYPNEA, NOT ELSEWHERE CLASSIFIED Status: Acute (3) Fever Code(s): R50.9 - FEVER, UNSPECIFIED Status: Acute (4) Protein malnutrition Code(s): E40 - KWASHIORKOR Status: Acute (5) A-fib Code(s): I48.91 - UNSPECIFIED ATRIAL FIBRILLATION Status: Chronic Qualifiers: Atrial fibrillation type: unspecified chronic Qualified Code(s): I48.20 - Chronic atrial fibrillation, unspecified; I48.2 - Chronic atrial fibrillation (6) COPD (chronic obstructive pulmonary disease) Status: Chronic Qualifiers: Emphysema type: unspecified (7) Essential thrombocytosis Code(s): D47.3 - ESSENTIAL (HEMORRHAGIC) THROMBOCYTHEMIA Status: Chronic (8) HLD (hyperlipidemia) Code(s): E78.5 - HYPERLIPIDEMIA, UNSPECIFIED Status: Chronic Qualifiers: Hyperlipidemia type: unspecified Qualified Code(s): E78.5 - Hyperlipidemia , unspecified (9) HTN (hypertension) Code(s): I10 - ESSENTIAL (PRIMARY) HYPERTENSION Status: Chronic Qualifiers: Hypertension type: essential hypertension Qualified Code(s): I10 - Essential (primary) hypertension - Plan Plan: 69 y/o F admitted for treatment of symptomatic anemia 1. Symptomatic anemia, improved s/p 1 units pRBC - h/h 7.5/25.5, 8.7/27.1. 8.2/26.6 - given 1 units pRBC's in ED - given IV 40 mg lasix as she is in acute CHF exacerbation as well. 2. Fever and tachypnea - started on vanc and rocephin - zosyn d/c's due to nephrotoxicity risks and cris. - hx of immunocompromised due to chemotherapy - T max 100.9 F - Blood and urine ccx's no growth to date. Once resulted will determine if antibiotics necessary. - V/Q scan indicative of low probability of PE. 3. Acute HFpEF exacerbation - daily weights, strict I/O's. - JVD and bibasilar crackles, improved today. - lasix 40 IV given now with the 1 units pRBCs - hold further lasix unless clinically indicated. - Echo in 09/04: EF 55-60%, mitral annular calcifications. 4. Essential Thrombocytosis, hx of blood dyscrasia being treated by Dr. Singh - Oncology consulted, appreciate recommendations - resumed anagrelide, clear for d/c once medically stable. 5. CRIS - will monitor for improvement - likely worse today due to lasix given 12/01. - continue fluid restriction, but hold lasix unless clinically necessary 6. hx of COPD - duonebs Q6hr MARISOL - will consider addition of steroids is duonebs improve pt's respiratory status - SOB most likely due to symptomatic anemia. 7. A fib - continue eliquis and home medications - med rec pending 8. hx of CVA - speech deficit present, chronic. 9. Hyperglycemia - no hx of DM, will place on mild SSI and monitor accuchecks AC/HS Code status: full code diet: HH, fluid restriction <1500 mL daily dvt ppx: eliquis Dispo: stable, admit to medical, oncology consulted. Addendum - Attending - Attending Attestation Date/Time: 12/04/19 [id number] I personally evaluated the patient and discussed the management with Dr. Moreira. I agree with the History, Examination, Assessment and Plan documented above with any addition or exceptions noted below.
[2019-12-04 07:33] LABS: #Basophils 0.1 thou/uL (0.0-0.2); #Eosinphils 0.1 thou/uL (0.0-0.7); #Lymphocytes 0.5 thou/uL (1.20-3.40); #Monocytes 1.1 thou/uL (0.11-0.59); #Neutrophils 7.7 thou/uL (1.40-6.50); %Basophils 0.6 % (0.0-1.0); %Eosinophils 1.1 % (0.0-10.0); %Lymphocytes 5.3 % (21.0-51.0); %Monocytes 11.5 % (0.0-10.0); %Neutrophils 81.6 % (42.0-75.0); Hemoglobin 8.2 g/dL (12.0-16.0); Mean Corpuscular HGB CONC 30.7 g/dL (32.0-36.0); Mean Corpuscular Hemoglobin 33.2 pg (27.0-31.0); Mean Platelet Volume 10.2 fL (7.4-10.4); Platelet Count 1150 thou/uL (130-400); RBC Distribution Width 31.3 % (11.5-14.5); Red Blood Cell (RBC) Count 2.46 mill/uL (4.20-5.40); White Blood Cell (WBC) Count 9.4 thou/uL (4.8-10.8)
[2019-12-04 07:34] LABS: Hemoglobin A1c 5.5 % (4.0-6.0)
[2019-12-04 07:53] LABS: Anisocytosis MODERATE=16-30 cells (100X) (0-5/hpf); Hypochromia SLIGHT = 6-15 cells (100X) (0-5/hpf); Large Platelets MODERATE; MDiff Complete? YES; Platelet Morphology Comment Appears Increased; Polychromasia MODERATE = 3-4 cells (100X) (0-2/hpf)
[2019-12-04] MEDS: Triamterene/Hydrochlorothiazide 37.5 mg/25 mg Tablet PO SCH (08:38)
[2019-12-04] MEDS: Aspirin 81 mg Enteric Coated Tablet PO SCH (08:38)
[2019-12-04] MEDS: Carvedilol 25 MG TAB PO SCH ×2 (08:38→21:01)
[2019-12-04] MEDS: Apixaban 2.5 MG TAB PO SCH ×2 (08:38→21:02)
[2019-12-04] MEDS: Anagrelide HCl 0.5 MG CAP PO SCH ×2 (08:38→21:00)
[2019-12-04] MEDS: Ascorbic Acid 500 mg Chewable Tablet PO SCH (08:38)
[2019-12-04] MEDS: Lidocaine 5% Patch TD SCH (08:39)
--- NOTE | 2019-12-04 09:56 | PDOC.MOPN ---
Interval History: c/o neck pain and spasm, SOB improving - Vital Signs Vital Signs: Vital Signs (12 hours) Temp Pulse Resp BP Pulse Ox 12/04/19 08:58 95 12/04/19 08:48 97 12/04/19 08:39 98.9 F 67 18 136/66 92 L 12/04/19 06:39 64 16 12/04/19 04:00 99.0 F 62 17 127/55 L 95 12/04/19 00:00 99.3 F 60 16 127/71 86 L 12/03/19 23:19 61 16 Weight Admit Weight 103 lb 9.6 oz Weight 103 lb 4 oz - Physical Exam General: Alert, Oriented x3, No acute distress HEENT: Atraumatic, PERRLA, EOMI, Mucous membr. moist/pink Lungs: Clear to auscultation, Normal air movement Cardiovascular: Regular rate, Normal S1, Normal S2, No murmurs, Gallops, Rubs Abdomen: Normal bowel sounds, Soft, No tenderness, No hepatospenomegaly, No masses Extremities: No clubbing, No cyanosis, No edema, Normal pulses, No tenderness/ swelling Skin: No rashes, No breakdown, No significant lesion Neurological: Other (old facial droop) - Labs Result Diagrams: 12/04/19 07:13 12/04/19 05:47 Lab results: Laboratory Results - last 24 hr 12/04/19 07:13: Hemoglobin A1c 5.5 12/04/19 07:13: WBC 9.4, RBC 2.46 L, Hgb 8.2 L, Hct 26.6 L, MCV 108.0 H, MCH 33.2 H, MCHC 30.7 L, RDW 31.3 H, Plt Count 1150 H*, MPV 10.2, Neutrophils % 81.6 H, Neutrophils % (Manual) Not Reportable, Lymphocytes % 5.3 L, Monocytes % 11.5 H, Eosinophils % 1.1, Basophils % 0.6, Neutrophils # 7.7 H, Lymphocytes # 0.5 L, Monocytes # 1.1 H, Eosinophils # 0.1, Basophils # 0.1, Hypochromia SLIGHT = 6-15 cells, Large Platelets MODERATE H, Plt Morphology Comment Appears Increased H, Polychromasia MODERATE = 3-4 cells H, Anisocytosis MODERATE=16-30 cells H 12/04/19 05:47: Sodium 139, Potassium 4.3, Chloride 105, Carbon Dioxide 23, Anion Gap 15, BUN 37 H, Creatinine 1.82 H, Estimated GFR (MDRD) 27, Glucose 276 H, Calcium 7.9, Total Bilirubin 0.2, AST 20, ALT 8, Alkaline Phosphatase 66, Serum Total Protein 6.3, Albumin 2.7 L, Globulin 3.6 H, Albumin/Globulin Ratio 0.8 L Status: lab reviewed by me A/P - Problem (1) Acute respiratory failure with hypoxia Current Visit: No Code(s): J96.01 - ACUTE RESPIRATORY FAILURE WITH HYPOXIA Status: Acute (2) History of CVA (cerebrovascular accident) Current Visit: No Code(s): Z86.73 - PRSNL HX OF TIA (TIA), AND CEREB INFRC W/ O RESID DEFICITS Status: Acute (3) Essential thrombocytosis Current Visit: No Code(s): D47.3 - ESSENTIAL (HEMORRHAGIC) THROMBOCYTHEMIA Status: Chronic - Plan Plan: Continue anagrelide 1mg po BID monitor CBC continue abx per Family practice Follow-up outpt for Retacrit
[2019-12-04] MEDS: valACYclovir 500 MG TAB PO SCH ×2 (10:28→17:09)
[2019-12-04] MEDS: HumaLOG 300 UNITS/3 ML VIAL SC PRN ×2 (12:40→21:04)
[2019-12-04] MEDS ORDERED: cefTRIAXone\\ROCEPHIN 1 GM in Sodium Chloride 0.9% 100 ML IVPB SCH (16:00)
[2019-12-04] MEDS: Capsaicin 0.025% Cream 60 gm Tube TOP SCH ×2 (16:28→21:03)
[2019-12-04 20:48] LABS: Vancomycin, Trough 9.3 ug/mL
[2019-12-04] MEDS: Folic Acid 1 MG TAB PO SCH (21:01)
[2019-12-04] MEDS: Rosuvastatin 10 MG TAB PO SCH (21:01)
[2019-12-04] MEDS: Gabapentin 100 MG CAP PO SCH (21:02)
[2019-12-04] MEDS: Lidocaine Patch Removal 1 EACH TOP SCH (21:04)
[2019-12-05] MEDS: Acetaminophen 325 MG TAB PO PRN ×2 (01:35→06:49)
[2019-12-05 01:59] LABS: Troponin I 0.031 ng/mL (< 0.028)
[2019-12-05] MEDS ORDERED: Sodium Chloride 0.9% 500 ML IV SCH (02:15)
[2019-12-05] MEDS: valACYclovir 500 MG TAB PO SCH ×4 (02:40→21:01)
[2019-12-05] MEDS ORDERED: Lactated Ringer's 500 ML IV SCH ×3 (02:45→03:15)
--- NOTE | 2019-12-05 02:58 | PDOC.BPN ---
- Brief Progress Note Page from nurse around 0100 for patient having new onset substernal chest pain. Pt stated that she had not been having any chest pain during admission until now. Chest pain located substernally and left side of chest, pain was reproducible. BP was 101/42, HR 67, T 98.8, RR 16, O2 sat 97% on 1 L. Stat EKG and trop ordered. EKG showed a fib with PVCs, no evidence of ST elevation. Trop returned and 0.031. Patient was given tylenol for pain and started to slowly improve. After about an hour, BPs decreased 83/38. She was given 500 cc bolus of NS and placed in trendelenberg and BP improved to 100s systolic. Will repeat trop 3 hours after prev and continue to monitor closely.
[2019-12-05 04:54] LABS: Hemoglobin 7.4 g/dL (12.0-16.0); Mean Corpuscular HGB CONC 30.2 g/dL (32.0-36.0); Mean Corpuscular Hemoglobin 33.1 pg (27.0-31.0); Mean Platelet Volume 9.9 fL (7.4-10.4); Platelet Count 984 thou/uL (130-400); RBC Distribution Width 30.3 % (11.5-14.5); Red Blood Cell (RBC) Count 2.23 mill/uL (4.20-5.40); White Blood Cell (WBC) Count 6.8 thou/uL (4.8-10.8)
[2019-12-05 05:17] LABS: Anisocytosis SLIGHT = 6-15 cells (100X) (0-5/hpf); Band 1 % (5-11); Lymphocytes 4 % (21-51); MDiff Complete? YES; Macrocytosis SLIGHT = 6-15 cells (100X) (0-5/hpf); Monocytes 12 % (0-10); Neutrophil 83 % (42-75); Platelet Morphology Comment Appears Increased; Polychromasia SLIGHT = 2-3 cells (100X) (0-2/hpf); Target Cells SLIGHT = 2-5 cells (100X) (0-1/hpf); Troponin I 0.014 ng/mL (< 0.028)
[2019-12-05 05:21] LABS: ALT (SGPT) 8 U/L (8-55); AST (SGOT) 15 U/L (5-34); Albumin 2.4 g/dL (3.4-4.8); Alkaline Phosphatase 58 U/L (40-110); Anion Gap 11 mmol/L (10-20); BUN (Urea Nitrogen) 33 mg/dL (9.8-20.1); Bilirubin, Total 0.4 mg/dL (0.2-1.2); Calc. Creatinine Clearance 28 mL/min (70-130); Calcium 7.3 mg/dL (7.8-10.44); Carbon Dioxide 25 mmol/L (23-31); Chloride 108 mmol/L (98-107); Estimated GFR-MDRD 38; Globulin 2.8 g/dL (2.4-3.5); Glucose 159 mg/dL (80-115); Potassium 4.2 mmol/L (3.5-5.1); Protein, Total 5.2 g/dL (6.0-8.3); Sodium 140 mmol/L (136-145)
--- NOTE | 2019-12-05 07:16 | PDOC.FM ---
- Subjective Subjective: overnight event with L sided chest pain, EKG unremarkable, trops trended down. BP was low and Given 1 L fluids, which BP responded to. Pt doing well this AM with no continued CP. Slight SOB, receiving nebulizer treatment currently. O2 sat 88% on 1 L NC while speaking quickly. - Objective MAR Reviewed: Yes Vital Signs & Weight: Vital Signs (12 hours) Temp Pulse Resp BP BP Pulse Ox 12/05/19 06:15 138/68 12/05/19 04:00 64 100/51 L 99 12/05/19 03:22 93/47 L 12/05/19 03:00 79/34 L 12/05/19 02:30 91/40 L 12/05/19 02:20 107/50 L 12/05/19 02:03 70/35 L 12/05/19 01:27 65 80/38 L 12/05/19 01:03 67 105/53 L 12/05/19 00:42 98.8 F 67 16 101/42 L 97 12/05/19 00:34 65 14 94 L 12/04/19 20:00 98.2 F 80 16 113/52 L 99 Weight Admit Weight 46.992 kg Weight 46.833 kg I&O: 12/04/19 12/05/19 12/06/19 06:59 06:59 06:59 Intake Total 580 3125 Output Total 1150 Balance 580 1975 Result Diagrams: 12/05/19 04:34 12/05/19 04:34 Phys Exam - Physical Examination Constitutional: NAD HEENT: moist MMs, sclera anicteric Neck: no nodes, no JVD, full ROM Respiratory: no rales, no rhonchi, wheezing present (expiratory wheezing present. ) Cardiovascular: RRR, no significant murmur, no rub Gastrointestinal: soft, non-tender, no distention, positive bowel sounds Musculoskeletal: no edema, pulses present Neurological: non-focal, normal sensation, moves all 4 limbs Psychiatric: normal affect, A&O x 3 Skin: no rash, normal turgor, cap refill <2 seconds Dx/Plan (1) Symptomatic anemia Code(s): D64.9 - ANEMIA, UNSPECIFIED Status: Acute (2) Tachypnea Code(s): R06.82 - TACHYPNEA, NOT ELSEWHERE CLASSIFIED Status: Acute (3) Fever Code(s): R50.9 - FEVER, UNSPECIFIED Status: Acute (4) Protein malnutrition Code(s): E40 - KWASHIORKOR Status: Acute (5) A-fib Code(s): I48.91 - UNSPECIFIED ATRIAL FIBRILLATION Status: Chronic Qualifiers: Atrial fibrillation type: unspecified chronic Qualified Code(s): I48.20 - Chronic atrial fibrillation, unspecified; I48.2 - Chronic atrial fibrillation (6) COPD (chronic obstructive pulmonary disease) Status: Chronic Qualifiers: Emphysema type: unspecified (7) Essential thrombocytosis Code(s): D47.3 - ESSENTIAL (HEMORRHAGIC) THROMBOCYTHEMIA Status: Chronic (8) HLD (hyperlipidemia) Code(s): E78.5 - HYPERLIPIDEMIA, UNSPECIFIED Status: Chronic Qualifiers: Hyperlipidemia type: unspecified Qualified Code(s): E78.5 - Hyperlipidemia , unspecified (9) HTN (hypertension) Code(s): I10 - ESSENTIAL (PRIMARY) HYPERTENSION Status: Chronic Qualifiers: Hypertension type: essential hypertension Qualified Code(s): I10 - Essential (primary) hypertension - Plan Plan: 69 y/o F admitted for treatment of symptomatic anemia 1. Symptomatic anemia, improved s/p 1 units pRBC - h/h 7.5/25.5, 8.7/27.1. 8.2/26.6, 7.4/24.5 - given 1 units pRBC's in ED - given IV 40 mg lasix as she is in acute CHF exacerbation as well. - CP, hypotension overnight, given 1 L IVF and BP responded, Trops: 0.031, 0.014 2. Fever and tachypnea - started on vanc and rocephin, D/c's after no growth from blood ccx's - zosyn d/c's due to nephrotoxicity risks and cris. - hx of immunocompromised due to chemotherapy - T max 100.9 F - V/Q scan indicative of low probability of PE. 3. Acute HFpEF exacerbation - daily weights, strict I/O's. - JVD and bibasilar crackles, improved today. - lasix 40 IV given now with the 1 units pRBCs - hold further lasix unless clinically indicated. - Echo in 09/04: EF 55-60%, mitral annular calcifications. 4. Essential Thrombocytosis, hx of blood dyscrasia being treated by Dr. Singh - Oncology consulted, appreciate recommendations - resumed anagrelide, clear for d/c once medically stable. 5. CRIS - will monitor for improvement - likely worse today due to lasix given 12/01. - continue fluid restriction, but hold lasix unless clinically necessary 6. hx of COPD - duonebs Q6hr MARISOL - will consider addition of steroids is duonebs improve pt's respiratory status - SOB most likely due to symptomatic anemia. - Pt's lungs tight and wheezing on exam this AM. - Starting prednisone 40 mg daily for 5 days. 7. A fib - continue eliquis and home medications - med rec pending 8. hx of CVA - speech deficit present, chronic. 9. Hyperglycemia - no hx of DM, will place on mild SSI and monitor accuchecks AC/HS Code status: full code diet: HH, fluid restriction <1500 mL daily dvt ppx: eliquis Dispo: stable, admit to medical, oncology consulted. Addendum - Attending - Attending Attestation Date/Time: 12/05/19 0830 I personally evaluated the patient and discussed the management with Dr. Moreira. I agree with the History, Examination, Assessment and Plan documented above with any addition or exceptions noted below.
--- NOTE | 2019-12-05 08:51 | RAD ---
CHEST 1 VIEW: Date: 12/05/2019 HISTORY: Shortness of breath. COMPARISON: Radiograph dated 12/02/2019. FINDINGS: There are small to mild bilateral pleural effusions. Mild increased interstitial markings. No pneumot horax. Mild background pulmonary fibrosis. Dual lead pacer is in place. Heart size is similar. Moderate vasc ular calcifications. IMPRESSION: 1. Findings of mild decompensated congestive heart failure with pulmonary edema and small to moderat e effusions. 2. Concern for possibility of background pulmonary fibrosis. POS: [facility]
[2019-12-05] MEDS: predniSONE 20 MG TAB PO SCH (09:00)
[2019-12-05] MEDS: Carvedilol 25 MG TAB PO SCH ×2 (09:00→21:01)
[2019-12-05] MEDS: Gabapentin 100 MG CAP PO SCH (09:00)
[2019-12-05] MEDS: Aspirin 81 mg Enteric Coated Tablet PO SCH (09:00)
[2019-12-05] MEDS: Ascorbic Acid 500 mg Chewable Tablet PO SCH (09:00)
[2019-12-05] MEDS: Apixaban 2.5 MG TAB PO SCH ×2 (09:00→21:01)
[2019-12-05] MEDS: Triamterene/Hydrochlorothiazide 37.5 mg/25 mg Tablet PO SCH (09:00)
[2019-12-05] MEDS: Capsaicin 0.025% Cream 60 gm Tube TOP SCH ×3 (09:01→21:04)
[2019-12-05] MEDS: Anagrelide HCl 0.5 MG CAP PO SCH ×2 (09:01→21:01)
[2019-12-05] MEDS: Lidocaine 5% Patch TD SCH (09:02)
[2019-12-05] MEDS: Docusate 100 MG CAP PO SCH (12:45)
[2019-12-05] MEDS: Morphine 2 MG/ML SYRINGE SLOW IVP PRN (12:58)
[2019-12-05] MEDS: HumaLOG 300 UNITS/3 ML VIAL SC PRN ×3 (12:59→21:09)
[2019-12-05 14:29] VITALS: BMI 18.9
--- NOTE | 2019-12-05 14:32 | PDOC.MOPN ---
Interval History: resting comfortable. - Vital Signs Vital Signs: Vital Signs (12 hours) Temp Pulse Resp BP BP Pulse Ox 12/05/19 12:44 68 16 93 L 12/05/19 12:00 97.7 F 73 18 123/61 93 L 12/05/19 09:01 93 L 12/05/19 08:00 93 L 12/05/19 07:30 97.4 F L 80 18 123/56 L 12/05/19 07:22 66 16 95 12/05/19 06:15 138/68 12/05/19 04:00 64 100/51 L 99 12/05/19 03:22 93/47 L 12/05/19 03:00 79/34 L Weight Admit Weight 103 lb 9.6 oz Weight 110 lb 7 oz - Physical Exam General: No acute distress HEENT: Atraumatic, PERRLA, EOMI, Mucous membr. moist/pink Lungs: Clear to auscultation, Normal air movement Cardiovascular: Regular rate, Normal S1, Normal S2, No murmurs, Gallops, Rubs Abdomen: Normal bowel sounds, Soft, No tenderness, No hepatospenomegaly, No masses Extremities: No clubbing, No cyanosis, No edema, Normal pulses, No tenderness/ swelling Neurological: Other (facial droop, old) - Labs Result Diagrams: 12/05/19 04:34 12/05/19 04:34 Lab results: Laboratory Results - last 24 hr 12/05/19 11:33: POC Glucose 397 H 12/05/19 04:34: Procalcitonin 0.11 12/05/19 04:34: Troponin I 0.014 12/05/19 04:34: Sodium 140, Potassium 4.2, Chloride 108 H, Carbon Dioxide 25, Anion Gap 11, BUN 33 H, Creatinine 1.36 H, Estimated GFR (MDRD) 38, Glucose 159 H, Calcium 7.3 L, Total Bilirubin 0.4, AST 15, ALT 8, Alkaline Phosphatase 58, Serum Total Protein 5.2 L, Albumin 2.4 L, Globulin 2.8, Albumin/Globulin Ratio 0.9 L 12/05/19 04:34: WBC 6.8, RBC 2.23 L, Hgb 7.4 L, Hct 24.5 L, MCV 110.0 H, MCH 33.1 H, MCHC 30.2 L, RDW 30.3 H, Plt Count 984 H*, MPV 9.9, Neutrophils % ( Manual) 83 H, Band Neuts % (Manual) 1 L, Lymphocytes % (Manual) 4 L, Monocytes % (Manual) 12 H, Lymphocytes # Not Reportable, Plt Morphology Comment Appears Increased H, Polychromasia SLIGHT = 2-3 cells, Anisocytosis SLIGHT = 6-15 cells , Macrocytosis SLIGHT = 6-15 cells, Target Cells SLIGHT = 2-5 cells 12/05/19 02:24: POC Glucose 254 H 12/05/19 01:27: Troponin I 0.031 H 12/04/19 20:08: Vancomycin Trough 9.3 12/04/19 19:52: POC Glucose 234 H 12/04/19 16:52: POC Glucose 88 Status: lab reviewed by me A/P - Problem (1) Acute respiratory failure with hypoxia Current Visit: No Code(s): J96.01 - ACUTE RESPIRATORY FAILURE WITH HYPOXIA Status: Acute (2) History of CVA (cerebrovascular accident) Current Visit: No Code(s): Z86.73 - PRSNL HX OF TIA (TIA), AND CEREB INFRC W/ O RESID DEFICITS Status: Acute (3) Essential thrombocytosis Current Visit: No Code(s): D47.3 - ESSENTIAL (HEMORRHAGIC) THROMBOCYTHEMIA Status: Chronic - Plan Plan: 1. Platelets improving with anagrelide, continue 2. Recheck CBC in am 3. Will likely need blood transfusion tomorrow with dose of lasix. 4. Procrit 40,000 units in outpatient setting 5. Home when stable.
--- NOTE | 2019-12-05 15:55 | EKG ---
Test Reason : Blood Pressure : / mmHG Vent. Rate : 070 BPM Atrial Rate : 258 BPM P-R Int : 000 ms QRS Dur : 120 ms QT Int : 430 ms P-R-T Axes : 000 -30 130 degrees QTc Int : 464 ms Poor data quality, interpretation may be adversely affected Atrial fibrillation with frequent ventricular-paced complexes Left axis deviation Septal infarct , age undetermined Abnormal ECG When compared with ECG of 02-DEC-2019 13:15, (Unconfirmed) No significant change was found Confirmed by CINDI MORA, SAbeba ([id number]) on 12/05/2019 3:55:00 PM Referred By: Confirmed By:DR. Chiki PUENTE MD
--- NOTE | 2019-12-05 16:33 | PQF ---
CLINICAL DOCUMENTATION IMPROVEMENT CLARIFICATION FORM: ICD-10 Updated PLEASE DO AN ADDENDUM TO THE PROGRESS NOTE WITH ANY DOCUMENTATION UPDATES OR ADDITIONS AND CARRY THROUGH TO DC SUMMARY. THANK YOU. DATE: 12/05/19 ATTN: DR. CHAO Please exercise your independent, professional judgment in responding to the clarification form. Clinical indicators are provided on the bottom of this form for your review Please check appropriate box(s): HEART FAILURE: TYPE: Diastolic / HFpEF Ef 55-0% In addition, please specify: Present on Admission (POA): [ * ] Yes CLINICAL INDICATORS - SIGNS / SYMPTOMS / LABS / RESULTS AND LOCATION IN EMR "ACUTE CHF EXACERBATION" (PROGRESS NOTE 12/02) BNP 12/01: 790.7 RISKS: AFIB (H&P 12/01) CHEMOTHERAPY (H&P 12/01) COPD (H&P 12/01) TREATMENT: COREG (12/02-PRESENT) IV LASIX (12/02) CHEST XRAY (12/04) (This form is maintained as a part of the permanent medical record) 2014 [employer]. All Rights Reserved [employer]
[2019-12-05] MEDS: Rosuvastatin 10 MG TAB PO SCH (21:01)
[2019-12-05] MEDS: Folic Acid 1 MG TAB PO SCH (21:01)
[2019-12-05] MEDS: Lidocaine Patch Removal 1 EACH TOP SCH (21:04)
[2019-12-06] MEDS: HumaLOG 300 UNITS/3 ML VIAL SC PRN ×2 (05:20→11:50)
--- NOTE | 2019-12-06 07:15 | PDOC.FM ---
- Subjective Subjective: Pts sob improved. denies CP states neck turner nis better today. - Objective MAR Reviewed: Yes Vital Signs & Weight: Vital Signs (12 hours) Temp Pulse Resp BP BP Pulse Ox 12/06/19 04:12 97.5 F L 70 18 122/54 L 90 L 12/06/19 00:35 87 16 92 L 12/05/19 23:25 97.4 F L 80 18 132/68 92 L 12/05/19 22:13 92 L 12/05/19 19:39 97.8 F 72 18 129/65 92 L Weight Admit Weight 46.992 kg Weight 50.094 kg I&O: 12/05/19 12/06/19 12/07/19 06:59 06:59 06:59 Intake Total 3125 1500 Output Total 1150 1 Balance 1975 1499 Result Diagrams: 12/06/19 06:26 12/06/19 06:26 Phys Exam - Physical Examination Constitutional: NAD HEENT: moist MMs, sclera anicteric Neck: no nodes, no JVD, supple, full ROM Respiratory: no wheezing, no rales, no rhonchi, clear to auscultation bilateral Cardiovascular: RRR, no rub Gastrointestinal: soft, non-tender, no distention, positive bowel sounds Musculoskeletal: no edema, pulses present Neurological: non-focal, normal sensation, moves all 4 limbs Psychiatric: normal affect, A&O x 3 Skin: no rash, normal turgor, cap refill <2 seconds Dx/Plan (1) Symptomatic anemia Code(s): D64.9 - ANEMIA, UNSPECIFIED Status: Acute (2) Tachypnea Code(s): R06.82 - TACHYPNEA, NOT ELSEWHERE CLASSIFIED Status: Acute (3) Fever Code(s): R50.9 - FEVER, UNSPECIFIED Status: Acute (4) Protein malnutrition Code(s): E40 - KWASHIORKOR Status: Acute (5) A-fib Code(s): I48.91 - UNSPECIFIED ATRIAL FIBRILLATION Status: Chronic Qualifiers: Atrial fibrillation type: unspecified chronic Qualified Code(s): I48.20 - Chronic atrial fibrillation, unspecified; I48.2 - Chronic atrial fibrillation (6) COPD (chronic obstructive pulmonary disease) Status: Chronic Qualifiers: Emphysema type: unspecified (7) Essential thrombocytosis Code(s): D47.3 - ESSENTIAL (HEMORRHAGIC) THROMBOCYTHEMIA Status: Chronic (8) HLD (hyperlipidemia) Code(s): E78.5 - HYPERLIPIDEMIA, UNSPECIFIED Status: Chronic Qualifiers: Hyperlipidemia type: unspecified Qualified Code(s): E78.5 - Hyperlipidemia , unspecified (9) HTN (hypertension) Code(s): I10 - ESSENTIAL (PRIMARY) HYPERTENSION Status: Chronic Qualifiers: Hypertension type: essential hypertension Qualified Code(s): I10 - Essential (primary) hypertension - Plan Plan: 69 y/o F admitted for treatment of symptomatic anemia 1. Symptomatic anemia, improved s/p 1 units pRBC - h/h 7.5/25.5, 8.7/27.1. 8.2/26.6, 7.4/24.5, 8.1 - given 1 units pRBC's in ED, likely will require transfusion today. - given IV 40 mg lasix as she is in acute CHF exacerbation as well. - CP, hypotension overnight, given 1 L IVF and BP responded, Trops: 0.031, 0.014 2. Fever and tachypnea - started on vanc and rocephin, D/c's after no growth from blood ccx's - zosyn d/c's due to nephrotoxicity risks and cris. - hx of immunocompromised due to chemotherapy - T max 100.9 F, no other fevers - V/Q scan indicative of low probability of PE. 3. Acute HFpEF exacerbation - daily weights, strict I/O's. - JVD and bibasilar crackles, improved today. - lasix 40 IV given now with the 1 units pRBCs - hold further lasix unless clinically indicated. - Echo in 09/04: EF 55-60%, mitral annular calcifications. 4. Essential Thrombocytosis, hx of blood dyscrasia being treated by Dr. Singh - Oncology consulted, appreciate recommendations - resumed anagrelide, clear for d/c once medically stable. - 40,000 units retacrit in outpt setting. Not covered in the hospital per onc. 5. CRIS - will monitor for improvement - likely worse today due to lasix given 12/01. - continue fluid restriction, but hold lasix unless clinically necessary 6. hx of COPD - duonebs Q6hr MARISOL - will consider addition of steroids is duonebs improve pt's respiratory status - SOB most likely due to symptomatic anemia. - Pt's lungs tight and wheezing on exam this AM. - Starting prednisone 40 mg daily for 5 days. 7. A fib - continue eliquis and home medications - med rec pending 8. hx of CVA - speech deficit present, chronic. 9. Hyperglycemia - no hx of DM, will place on mild SSI and monitor accuchecks AC/HS Code status: full code diet: HH, fluid restriction <1500 mL daily dvt ppx: eliquis Dispo: stable, admit to medical, oncology consulted. d/c to inpt rehab Addendum - Attending - Attending Attestation Date/Time: 12/06/19 3728 I personally evaluated the patient and discussed the management with [Harish] I agree with the History, Examination, Assessment and Plan documented above with any addition or exceptions noted below. Patient stable to transfer to rehab as planned and continue f/u with [facility]
[2019-12-06 07:25] LABS: Hemoglobin 8.1 g/dL (12.0-16.0); Mean Corpuscular HGB CONC 28.6 g/dL (32.0-36.0); Mean Corpuscular Hemoglobin 30.7 pg (27.0-31.0); Mean Platelet Volume 10.1 fL (7.4-10.4); Platelet Count 1396 thou/uL (130-400); RBC Distribution Width 33.3 % (11.5-14.5); Red Blood Cell (RBC) Count 2.62 mill/uL (4.20-5.40); White Blood Cell (WBC) Count 12.3 thou/uL (4.8-10.8)
[2019-12-06 07:54] LABS: ALT (SGPT) 11 U/L (8-55); AST (SGOT) 19 U/L (5-34); Albumin 2.8 g/dL (3.4-4.8); Alkaline Phosphatase 66 U/L (40-110); Anion Gap 13 mmol/L (10-20); BUN (Urea Nitrogen) 30 mg/dL (9.8-20.1); Bilirubin, Total 0.3 mg/dL (0.2-1.2); Calc. Creatinine Clearance 29 mL/min (70-130); Calcium 8.4 mg/dL (7.8-10.44); Carbon Dioxide 22 mmol/L (23-31); Chloride 107 mmol/L (98-107); Estimated GFR-MDRD 36; Globulin 3.6 g/dL (2.4-3.5); Glucose 310 mg/dL (80-115); Potassium 4.4 mmol/L (3.5-5.1); Protein, Total 6.4 g/dL (6.0-8.3); Sodium 138 mmol/L (136-145)
[2019-12-06] MEDS: Carvedilol 25 MG TAB PO SCH (08:27)
[2019-12-06] MEDS: Lidocaine 5% Patch TD SCH (08:27)
[2019-12-06] MEDS: Triamterene/Hydrochlorothiazide 37.5 mg/25 mg Tablet PO SCH (08:27)
[2019-12-06] MEDS: predniSONE 20 MG TAB PO SCH (08:27)
[2019-12-06] MEDS: Apixaban 2.5 MG TAB PO SCH (08:28)
[2019-12-06] MEDS: Ascorbic Acid 500 mg Chewable Tablet PO SCH (08:28)
[2019-12-06] MEDS: Anagrelide HCl 0.5 MG CAP PO SCH (08:28)
[2019-12-06] MEDS: Aspirin 81 mg Enteric Coated Tablet PO SCH (08:28)
[2019-12-06] MEDS: Capsaicin 0.025% Cream 60 gm Tube TOP SCH (08:29)
[2019-12-06] MEDS: valACYclovir 500 MG TAB PO SCH (08:38)
[2019-12-06 09:49] LABS: Giant Platelets SLIGHT; Hypochromia SLIGHT = 6-15 cells (100X) (0-5/hpf); Large Platelets MARKED; Lymphocytes 4 % (21-51); MDiff Complete? YES; Macrocytosis MODERATE=16-30 cells (100X) (0-5/hpf); Monocytes 4 % (0-10); Neutrophil 92 % (42-75); Platelet Morphology Comment Appears Increased
[2019-12-06 11:44] VITALS: BP 145/63; TEMP 97.9
[2019-12-06] MEDS ORDERED: Hydroxyurea 500 MG CAP PO SCH (11:45)
--- NOTE | 2019-12-06 13:36 | EKG ---
Test Reason : Blood Pressure : / mmHG Vent. Rate : 071 BPM Atrial Rate : 220 BPM P-R Int : 000 ms QRS Dur : 120 ms QT Int : 428 ms P-R-T Axes : 000 -27 131 degrees QTc Int : 465 ms Atrial fibrillation with frequent ventricular-paced complexes Anteroseptal infarct , age undetermined Abnormal ECG Confirmed by MAXINE MORA, ALBERT ([id number]), senior editor GAYE ALVARADO ([id number]) on 12/06/2019 1:36:06 PM Referred By: Confirmed By:ALBERT GOODMAN MD
[2019-12-07] MEDS ORDERED: Hydroxyurea 500 MG CAP PO SCH (09:00)
--- NOTE | 2019-12-08 13:28 | DIS ---
DATE OF ADMISSION: 12/02/2019 DATE OF DISCHARGE: 12/06/2019 RESIDENT: Tita Moreira DO ADMITTING ATTENDING: Elian Echeverria MD DISCHARGE ATTENDING: Blaise Swain DO CONSULTS: Case Management, Oncology, CV Team, PT/OT, and dietitian. PROCEDURES: Pulmonary perfusion imaging, which showed low probability of pulmonary embolism. DIAGNOSES: 1. Symptomatic anemia. 2. Fever and tachypnea. 3. Acute heart failure with preserved ejection fraction exacerbation. 4. Essential thrombocytosis, history of a blood dyscrasia, being treated by Dr. Singh. 5. Acute kidney injury. 6. History of chronic obstructive pulmonary disease. 7. Atrial fibrillation. 8. History of cerebrovascular accident. 9. Hyperglycemia. DISCHARGE MEDICATIONS: 1. Acetaminophen 500 mg p.o. p.r.n. 2. Anagrelide 1 mg p.o. b.i.d. 3. Eliquis 2.5 mg p.o. b.i.d. 4. Vitamin C 500 mg p.o. daily. 5. Aspirin 81 mg p.o. daily. 6. Capsaicin cream topical t.i.d. 7. Carvedilol 25 mg p.o. b.i.d. 8. Vitamin D 2000 units p.o. daily. 9. Docusate 100 mg p.o. daily for 2 days. 10. Procrit 40,000 units subcu every seven days. 11. Folic acid 0.4 mg p.o. at bedtime. 12. DuoNebs b.i.d. p.r.n. 13. Lidocaine patch two a day. 14. Myrbetriq one tab p.o. daily, 50 mg. 15. Zofran 4 mg p.o. q.6 hours p.r.n. 16. Prednisone 40 mg q.a.m. for 5 days total. 17. Rosuvastatin 10 mg p.o. at bedtime. 18. Triamterene/hydrochlorothiazide 37.5/25 mg p.o. daily. 19. Valacyclovir 1000 mg p.o. q.8 hours for 5 more days, 15 tabs. HISTORY OF PRESENT ILLNESS/HOSPITAL COURSE: Ms. Turner is a 69-year-old lady with a history of essential thrombocytosis, being treated by oncologist, Dr. Singh, who gives patient a 40,000-unit Procrit shot weekly for her anemia as well as anagrelide. She came into the emergency department after being too weak to get out of the vehicle to see Dr. Singh on 12/02/2019. She was admitted for symptomatic anemia and transfused 1 unit of packed red blood cells on 12/01. Her hemoglobin improved from 7.5 to 8.7 and was 8.1 on the day of discharge to inpatient rehab. She was unable to receive her Procrit shot of 40,000 units in the hospital, but had arranged to receive this in the inpatient rehab. This was due to a pharmacy problem and it being covered by the patient's insurance in the inpatient setting. However, this was taken care of and will be able to get it in inpatient rehab as the patient does heavily rely on that amount of Procrit. The patient had complaints of severe pain to her right neck in the dermatomal distribution. This is very consistent with herpes zoster. She was very sensitive to touch and it was out of the blue pain that was not treatable as other aches and pains are to her in the past easily with Tylenol. After trying baclofen as well as gabapentin and not having a significant response to the pain with these medications, we added valacyclovir, as it was thought to be the pain originating from herpes zoster virus. The did not agree with this; however, we explained the medical reasoning behind this and let us try to see if her pain is diminished. The patient's pain did improve after adding valacyclovir. We will continue this therapy, 1000 mg p.o. q.8 hours for 7 days. I also added capsaicin cream, which helped significantly with her pain as well. The patient was very thankful for this help. The patient was originally volume overloaded, has a history of HFpEF and was given a one time dose of 40 IV Lasix with her blood transfusion. She did diurese well and her JVD was diminished on the next exam. The patient had an episode of low blood pressure one evening and was given a liter of fluids and responded well to this. This might have been a combination of the baclofen being added in for her as well as the gabapentin, those were discontinued as they did not help the patient anyway, and appeared to cause her more harm. She did not become fluid overloaded because of this 1 L of fluid. She might have not been hydrating well to begin with to also exacerbate the low blood pressure. Troponins were drawn, which were initially indeterminate but then downtrended to negative and her EKG was unremarkable. The patient improved throughout her hospital course. Her shortness of breath alleviated. We did add prednisone for 5 days due to some wheezing that she was experiencing in the setting of her COPD history as there may be a COPD component to her shortness of breath as well. However, the biggest factor would be the symptomatic anemia in the setting of her essential thrombocytosis. The patient was discharged. DISPOSITION: Stable, improved from initial presentation. DISCHARGE INSTRUCTIONS: 1. Location: To [facility]. 2. Diet: Regular diet with fluid restriction, 1800 mL daily. 3. Activity: Per PT and OT at inpatient rehab. 4. Followup: With Dr. Singh upon discharge from inpatient rehab. Job ID: [id number] [id number]
--- NOTE | 2019-12-10 00:50 | PQF ---
MAC AREVALO KORY KATRINA MATIAS [id number] CLINICAL DOCUMENTATION CLARIFICATION FORM: POST DISCHARGE Addendum to original discharge summary date: ____ Late entry note date: __ Date: 12/10/2019 ATTN:Blaise Burton Please exercise your independent, professional judgment in responding to the clarification form. Clinical indicators are provided on the bottom of this form for your review Please check appropriate box(s): [ ] Protein Calorie Malnutrition: [ ] Mild [ ] Moderate [ ] Severe [ ] Other Malnutrition (please specify) __ [ ] Underweight without malnutrition [ ] Cachexia [ ] Other diagnosis [ ] Unable to determine In addition, please specify: Present on Admission (POA): [ ] Yes [ ] No [ ] Unable to determine CLINICAL INDICATORS - SIGNS / SYMPTOMS / LABS Labs Albumin: 12/01=2.9 12/03=2.7 12/04=2.4 12/05=2.8 Labs Total Protein: 12/04=5.2 BMI of 19.2- Legal Recovery Specialist assessment 12/02 Legal Recovery Specialist assessment 12/02 7.5% wt loss x 1 wk Legal Recovery Specialist assessment 12/02 Moderate to severe loss of buccal/orbital fat pads Legal Recovery Specialist assessment 12/02 Moderate dorsal interosseous clavicle area wasting Legal Recovery Specialist assessment 12/02 Moderate bicep and tricep muscle wasting RISK FACTORS H&P p1 12/01 69 year-old Female H&P p1 12/01 COPD H&P p1 12/01 Thrombocytosis and blood dyscrasia H&P p1 12/01 HFpEF H&P p2 12/01 Remote Tobacco Abuse H&P p1 12/01 Previous CVA H&P p1 12/01 DM TREATMENT: NOV 17 Vitamin C 500mg PO NOV 17 Vitamin D3 2000 units PO NOV 17 IVF LR 1L Dietary consult 12/02 Legal Recovery Specialist assessment 12/02 - Nutritional supplements Legal Recovery Specialist assessment 12/02 - Recommend liberalize diet to low Sodium to promote intake Legal Recovery Specialist assessment 12/02 - Recommend Glucerna Shakes BID between meals, Suplena BID Moderate Malnutrition (in acute illness) Energy Intake: <75% of estimated energy requirement for > 7 days Weight Loss: 1-2%/1 week; 5%/ 1 month; 7.5%/3 months Other: mild body fat loss; mild muscle mass loss; mild fluid accumulation; Severe Malnutrition (in acute illness) Energy Intake: < 50% of estimated energy requirement for > 5 days Weight Loss: >1-2%/1 week; >5%/1 month; >7.5%/3 months Other: moderate body fat loss; moderate muscle mass loss; moderate- severe fluid accumulation; measurably reduced spark plug tester strength Moderate Malnutrition (in chronic illness) Energy Intake: <75% of estimated energy requirement for >1 month Weight Loss: 5%/1 month; 7.5%/3 months; 10%/6 months; 20%/1 year Other: mild body fat loss; mild muscle mass loss; mild fluid accumulation Severe Malnutrition (in chronic illness) Energy Intake: <75% of estimated energy requirement for >1 month Weight Loss: >5%/1 month; >7.5%/3 months; >10%/6 months; >20%/1 year Other: severe body fat loss; severe muscle mass loss; severe fluid accumulation ; measurably reduced spark plug tester strength (This form is maintained as a part of the permanent medical record) 2014 [employer]. All Rights Reserved [email or web address]
== END 2019-12-06 14:07 | DRG 840 ==
LOC: ERS 12:18 → T4-B 18:43
PROVIDERS: ADMIT Family Medicine; ATTEND Family Medicine
PROC: 30233N1 Transfusion of Nonautologous Red Blood Cells into Peripheral Vein, Percutaneous Approach (ICD-10-PCS; principal; 2019-12-02)
DX: C94.6 Myelodysplastic disease, not elsewhere classified (principal); I50.33 Acute on chronic diastolic (congestive) heart failure; J96.01 Acute respiratory failure with hypoxia; I13.0 Hypertensive heart and chronic kidney disease with heart failure and stage 1 through stage 4 chronic kidney disease, or unspecified chronic kidney disease; I48.20 Chronic atrial fibrillation, unspecified; N17.9 Acute kidney failure, unspecified; Z68.1 Body mass index [BMI] 19.9 or less, adult; R65.10 Systemic inflammatory response syndrome (SIRS) of non-infectious origin without acute organ dysfunction; E46 Unspecified protein-calorie malnutrition; J43.9 Emphysema, unspecified; D47.3 Essential (hemorrhagic) thrombocythemia; E78.5 Hyperlipidemia, unspecified; N18.9 Chronic kidney disease, unspecified; D63.0 Anemia in neoplastic disease; B00.9 Herpesviral infection, unspecified; R07.89 Other chest pain; R73.9 Hyperglycemia, unspecified; I95.2 Hypotension due to drugs; T42.8X5A Adverse effect of antiparkinsonism drugs and other central muscle-tone depressants, initial encounter; T42.6X5A Adverse effect of other antiepileptic and sedative-hypnotic drugs, initial encounter; Z88.5 Allergy status to narcotic agent; Z88.8 Allergy status to other drugs, medicaments and biological substances; Z79.01 Long term (current) use of anticoagulants; Z79.899 Other long term (current) drug therapy; Z79.82 Long term (current) use of aspirin; Z79.51 Long term (current) use of inhaled steroids; Z86.73 Personal history of transient ischemic attack (TIA), and cerebral infarction without residual deficits; Z90.49 Acquired absence of other specified parts of digestive tract; Z95.0 Presence of cardiac pacemaker; Z95.828 Presence of other vascular implants and grafts; Z28.21 Immunization not carried out because of patient refusal
CPT/HCPCS: 36415; 36416; 36430; 51701; 71045; 78582; 80053; 80202; 81003; 81015; 82550; 83036; 83605; 83880; 84145; 84484; 85025; 85060; 86850; 86900; 86901; 87040; 87086; 93005; 93010; 93798; 94640; A4353; A9540; A9558; J0696; J1940; J2270; J2543; J3370; J3490; J7512; J7620; P9016

== ENCOUNTER 2019-12-12 17:57 | Inpatient (IN) | payer MEDICARE, BC, OTHER ==
--- NOTE | 2019-12-12 18:42 | RAD ---
XR Chest 1 View Portable History: Dyspnea Comparison: Radiograph 2 days prior Findings: Heart size is enlarged. Similar bilateral layering pleural effusions. Moderate edema. No pn eumothorax. Continued dilatation the pulmonary arteries. Dense calcifications of the aorta. Impression: Similar appearance of the chest. Findings of decompensated congestive heart failure.
[2019-12-12 18:47] LABS: ALT (SGPT) 12 U/L (8-55); AST (SGOT) 29 U/L (5-34); Albumin 2.9 g/dL (3.4-4.8); Alkaline Phosphatase 60 U/L (40-110); Anion Gap 14 mmol/L (10-20); BUN (Urea Nitrogen) 34 mg/dL (9.8-20.1); Bilirubin, Total 0.5 mg/dL (0.2-1.2); Calc. Creatinine Clearance 0 mL/min (70-130); Calcium 8.2 mg/dL (7.8-10.44); Carbon Dioxide 24 mmol/L (23-31); Chloride 106 mmol/L (98-107); Estimated GFR-MDRD 37; Globulin 3.6 g/dL (2.4-3.5); Glucose 158 mg/dL (80-115); Potassium 4.9 mmol/L (3.5-5.1); Protein, Total 6.5 g/dL (6.0-8.3); Sodium 139 mmol/L (136-145)
[2019-12-12 18:48] LABS: Hemoglobin 9.1 g/dL (12.0-16.0); Mean Corpuscular HGB CONC 29.6 g/dL (32.0-36.0); Mean Corpuscular Hemoglobin 29.7 pg (27.0-31.0); Mean Platelet Volume 9.5 fL (7.4-10.4); Platelet Count 1678 thou/uL (130-400); RBC Distribution Width 32.6 % (11.5-14.5); Red Blood Cell (RBC) Count 3.07 mill/uL (4.20-5.40)
[2019-12-12] MEDS ORDERED: Acetaminophen 500 MG TAB ONE (18:57)
[2019-12-12 19:12] LABS: Anisocytosis MODERATE=16-30 cells (100X) (0-5/hpf); Band 7 % (5-11); Eosinophils 1 % (0-10); Hypochromia MODERATE=16-30 cells (100X) (0-5/hpf); Lymphocytes 3 % (21-51); MDiff Complete? YES; Macrocytosis MODERATE=16-30 cells (100X) (0-5/hpf); Monocytes 13 % (0-10); Neutrophil 75 % (42-75); Ovalocytes SLIGHT = 2-5 cells (100X) (0-1/hpf); Platelet Morphology Comment Appears Increased; Polychromasia MARKED = >4 cells (100X) (0-2/hpf); Reactive Lymphocytes 1 % (0-10); Schistocytes SLIGHT = 2-5 cells (100X) (0-1/hpf); Target Cells SLIGHT = 2-5 cells (100X) (0-1/hpf); Tear Drops SLIGHT = 2-5 cells (100X) (0-1/hpf); White Blood Cell (WBC) Count 14.7 thou/uL (4.8-10.8)
[2019-12-12 19:38] LABS: Bilirubin Negative (Negative); Blood, Urine Negative (Negative); Clarity Clear (Clear); Glucose, Urine (Dipstick) Normal (Negative); Leukocyte Negative Leu/uL (Negative); Nitrite Negative (Negative); Protein, Urine (Dipstick) 10 mg/dL (Neg-Trace); Urobilinogen Normal mg/dL (Less than 2)
[2019-12-12] MEDS ORDERED: Vancomycin 1 GM/200 ML BAG ONE (20:16)
[2019-12-12] MEDS ORDERED: Cefepime 2 GM VIAL ONE (20:16)
--- NOTE | 2019-12-12 20:28 | PDOC.FPRHP ---
- History of Present Illness Chief Complaint: SOB History of Present Illness: This is a 69yo F presenting tot he ER from rehab for SOB. She was discharged from the hospital on 12/05 for CHF exacerbation and anemia and was sent to rehab due to weakness. She states that her SOB got worse today. She had 2 episodes that were markedly worse while at rehab today. She states that her SOB actually gets worse after waking up from a nap or sleep. She reports no issues during walking at rehab with SOB. She has been on oxygen since discharge from the hospital 6 days ago. She endorses coughing, nasal congestion. She has taken allergy medication with no resolution in these symptoms. She endorses that her "lungs hurt." She denies any chest pain, NV. Endorses diarrhea a few days ago. She denies dysuria. She was unaware of any fever, but had fever today at the rehab and in the ER. Patient states that her SOB is sometimes correlated to her anemia and her elevated platelets. ED Course: Cefepime 2g, vanco 1g, levaquin 750mg, proventil, tylenol 1g - Allergies/Adverse Reactions Allergies Allergy/AdvReac Type Severity Reaction Status Date / Time amlodipine Allergy Verified 12/05/19 10:37 lisinopril Allergy Verified 12/05/19 10:37 morphine AdvReac Mild Nausea Verified 12/05/19 10:37 - Home Medications Medication Instructions Recorded Confirmed Type Cholecalciferol (Vitamin D3) 2,000 unit PO DAILY 03/12/13 12/03/19 History [Vitamin D3] Docusate [Colace] 100 mg PO Q2DAYS 03/12/13 12/03/19 History Rosuvastatin [Crestor] 10 mg PO HS 03/12/13 12/03/19 History Carvedilol 25 mg PO BID 06/10/14 12/03/19 History Apixaban [Eliquis] 2.5 mg PO BID 09/10/19 12/03/19 History Ascorbic Acid [Vitamin C] 500 mg PO DAILY 09/10/19 12/03/19 History Folic Acid 0.4 mg PO HS 09/10/19 12/03/19 History Mirabegron [Myrbetriq] 1 tab PO DAILY 09/10/19 12/03/19 History Ipratropium/Albuterol Sulfate 3 ml NEB BID #60 neb 09/11/19 12/03/19 Rx [DuoNeb] Triamterene/Hydrochlorothiazid 1 tab PO DAILY 09/11/19 12/03/19 History [Triamterene-Hctz 37.5-25 mg Tb] Acetaminophen [Tylenol Extra 500 mg PO PRN PRN 12/03/19 12/03/19 History Strength] Anagrelide HCl 1 mg PO BID 12/03/19 12/03/19 History Aspirin [Ecotrin Low Strength] 81 mg PO DAILY 12/03/19 12/03/19 History Epoetin [Procrit] 40,000 units SC Q7D 12/03/19 12/03/19 History Anagrelide HCl [Agrylin] 1 mg PO BID cap 12/06/19 Rx Capsaicin [Zostrix 0.025% Cream] 1 gm TOP TID tube 12/06/19 Rx Lidocaine 5% Patch [Lidoderm 5% 2 patch TD DAILY patch 12/06/19 Rx Patch] Ondansetron [Zofran ODT] 4 mg PO Q6H PRN tab 12/06/19 Rx predniSONE 40 mg PO QAM-WM 5 Days #5 tab 12/06/19 Rx valACYclovir [Valtrex] 1,000 mg PO Q8H 5 Days #15 tab 12/06/19 Rx - History PMHx: thrombocytosis, HFpEF, COPD, HTN, afib, HLD, DM, previous CVA, blood cancer on chemotherapy protocol weekly PSHx: cholecystectomy, pericardial window for hemopericardium, colonoscopy 2013 nml FHx: mother - CVA, DM; Sister - CVA, DM Social: former tobacco abuse , denies current use; denies alcohol or drug use Allergies: amlodipine, lisinopril, morphine - Review of Systems General: reports: fever/chills, fatigue. denies: weight/appetite/sleep changes , night sweats Eyes: denies: vision changes ENT: reports: nasal congestion. denies: rhinorrhea Respiratory: reports: cough, congestion, shortness of breath, exercise intolerance Cardiovascular: denies: chest pain, palpitation, edema Gastrointestinal: denies: nausea, vomiting, diarrhea, constipation, abdominal pain Genitourinary: denies: dysuria Skin: denies: rashes, lesions, itching Musculoskeletal: denies: pain, tenderness, stiffness, swelling Neurological: reports: weakness - Vital signs BP: 113/52 (Sitting), Pulse: 72, Resp: 19, Temp: 100.0 (Oral), Pain: 0, O2 sat: 97-6L, Time: 12/12/2019 20:24. Weight: 55kg BP: 152/53, Pulse: 81, Resp: 32, Temp: 102.3 (Oral), Pain: 0, O2 sat: 95 on (4L Oxygen), Time: 12/12/2019 18:04. - Physical Exam Constitutional: NAD, awake, alert and oriented, well developed HEENT: normocephalic and atraumatic, PERRLA, EOMI, grossly normal vision, grossly normal hearing, MMM Neck: supple, FROM, trachea midline Chest: no-tender to palpation, no lesions Heart: normal S1/S2, no murmurs/rubs/gallops, pulses present -Heart: irregularly irregular; trace edema b/l LE -Lungs: good air movement; crackles L>R; no wheezes or rales heard Abdomen: soft, non-tender, bowel sounds present, no masses/distention Musculoskeletal: normal structure, normal tone Neurological: no focal deficit Skin: no rash/lesions Psychiatric: normal mood and affect FMR H&P: Results - Labs Result Diagrams: 12/12/19 18:18 12/12/19 18:18 Lab results: WBC 14.7 thou/uL (4.8-10.8) H 12/12/19 18:18 Hgb 9.1 g/dL (12.0-16.0) L 12/12/19 18:18 Hct 30.7 % (36.0-47.0) L 12/12/19 18:18 MCV 100.0 fL (78.0-98.0) H 12/12/19 18:18 Plt Count 1678 thou/uL (130-400) H* 12/12/19 18:18 Band Neuts % (Manual) 7 % (5-11) 12/12/19 18:18 Sodium 139 mmol/L (136-145) 12/12/19 18:18 Potassium 4.9 mmol/L (3.5-5.1) 12/12/19 18:18 Chloride 106 mmol/L (98-107) 12/12/19 18:18 Carbon Dioxide 24 mmol/L (23-31) 12/12/19 18:18 BUN 34 mg/dL (9.8-20.1) H 12/12/19 18:18 Creatinine 1.40 mg/dL (0.6-1.1) H 12/12/19 18:18 Glucose 158 mg/dL (80-115) H 12/12/19 18:18 Lactic Acid 1.0 mmol/L (0.5-2.2) 12/12/19 18:09 Calcium 8.2 mg/dL (7.8-10.44) 12/12/19 18:18 Total Bilirubin 0.5 mg/dL (0.2-1.2) 12/12/19 18:18 AST 29 U/L (5-34) 12/12/19 18:18 ALT 12 U/L (8-55) 12/12/19 18:18 Alkaline Phosphatase 60 U/L (40-110) 12/12/19 18:18 B-Natriuretic Peptide 639.9 pg/mL (0-100) H 12/12/19 18:18 Serum Total Protein 6.5 g/dL (6.0-8.3) 12/12/19 18:18 Albumin 2.9 g/dL (3.4-4.8) L 12/12/19 18:18 Urine Ketones Negative mg/dL (Negative) 12/12/19 19:04 Urine Blood Negative (Negative) 12/12/19 19:04 Urine Nitrite Negative (Negative) 12/12/19 19:04 Ur Leukocyte Esterase Negative Ermias/uL (Negative) 12/12/19 19:04 - Radiology Interpretation Chest x-ray Status: report reviewed by me (similar appearance of the chest. Findings of decompensated CHF. Enlarged heart size. Similar bilateral layering pleural effusions.) FMR H&P: A/P - Problem List (1) Fever Current Visit: No Status: Acute Code(s): R50.9 - FEVER, UNSPECIFIED (2) History of CVA (cerebrovascular accident) Current Visit: No Status: Acute Code(s): Z86.73 - PRSNL HX OF TIA (TIA), AND CEREB INFRC W/O RESID DEFICITS (3) Leukocytosis Current Visit: No Status: Acute Code(s): D72.829 - ELEVATED WHITE BLOOD CELL COUNT, UNSPECIFIED (4) A-fib Current Visit: No Status: Chronic Code(s): I48.91 - UNSPECIFIED ATRIAL FIBRILLATION Qualifiers: Atrial fibrillation type: unspecified chronic Qualified Code(s): I48.20 - Chronic atrial fibrillation, unspecified; I48.2 - Chronic atrial fibrillation (5) COPD (chronic obstructive pulmonary disease) Current Visit: No Status: Chronic Qualifiers: Emphysema type: unspecified (6) HLD (hyperlipidemia) Current Visit: No Status: Chronic Code(s): E78.5 - HYPERLIPIDEMIA, UNSPECIFIED Qualifiers: Hyperlipidemia type: unspecified Qualified Code(s): E78.5 - Hyperlipidemia , unspecified (7) HTN (hypertension) Current Visit: No Status: Chronic Code(s): I10 - ESSENTIAL (PRIMARY) HYPERTENSION Qualifiers: Hypertension type: essential hypertension Qualified Code(s): I10 - Essential (primary) hypertension - Plan Sepsis 2/2 presumed HAP Initially tachypneic, febrile, leukocytosis. LA of 1.0. CXR showing b/l effusions, no infiltrate noted otherwise. - Will continue broad abx coverage with vanc, cefepime, and levoquin - Procal 0.25 , will trend - Flu neg, RVP and COVID pending - Monitor VS and AM labs Acute HFpEF exacerbation Recently discharged on 12/05. BNP improved from previous - 640. CXR showing cardiomegaly. - Will give 40 IV lasix, re-evaluate in the morning the need for more IV lasix. On a home dose of 40mg PO furosemide daily. - Will continue abx - Strict I/Os, monitor daily weights, fluid restrict to 1500ml/day DMII - aware, mild SS, ACHS Anemia - H/H above baseline, will continue to monitor Thrombocytosis, hx of blood dyscrasia - Seen by Dr. Singh, slightly above baseline. Gets procrit 40,000 units weekly - she is due for a dose on Sunday (12/13). Can consider consulting [place] to see if patient can get procrit dose while here. Hx of COPD, no exacerbation at this time - Albuterol/Ipratropium q6hr MARSIOL - On abx as above, no indication for steroids at this time Hx of afib - Rate controlled, on eliquis and will continue CKD stage 3b, at baseline - BUN/Cr: 34/1.40, will continue to monitor Hx of CVA - on ASA, statin, will continue Dispo: admit to tele, inpt Code: FULL VTE: eliquis Diet: HH, fluid restrict Case discussed with Dr. Andujar
[2019-12-12] MEDS ORDERED: Ondansetron ODT 4 MG TAB PO PRN (20:47)
[2019-12-12] MEDS ORDERED: Acetaminophen 650 MG Suppository PR PRN (20:47)
[2019-12-12] MEDS ORDERED: Ondansetron PF 4 MG/2 ML Vial IVP PRN (20:47)
[2019-12-12] MEDS ORDERED: Dextrose 5% in Water 1,000 ML IV PRN (20:47)
[2019-12-12] MEDS ORDERED: Dextrose 50% Abboject 50 ML SYRINGE SLOW IVP PRN (20:47)
[2019-12-12] MEDS ORDERED: Ipratropium Oral Inhaler INH PRN (20:52)
[2019-12-12] MEDS: Albuterol 200 PUFF (6.7GM INHALER) INH SCH (21:15)
[2019-12-12] MEDS ORDERED: Furosemide 40 MG/4 ML VIAL SLOW IVP SCH (22:00)
[2019-12-12 22:32] LABS: Legionella Urinary Ag Negative (Negative); Strep pneumo Urine Ag NEGATIVE (NEGATIVE)
[2019-12-13] MEDS: Albuterol 200 PUFF (6.7GM INHALER) INH SCH ×4 (01:14→19:19)
[2019-12-13 02:49] VITALS: BMI 19.6
[2019-12-13] MEDS ORDERED: Furosemide 40 MG TAB PO PRN (03:06)
[2019-12-13] MEDS ORDERED: Polyethylene Glycol 3350 17 GM Packet PO PRN (03:06)
[2019-12-13] MEDS ORDERED: Docusate 100 MG CAP PO SCH (03:15)
[2019-12-13 05:30] LABS: Platelet Count 907 thou/uL (130-400)
[2019-12-13 06:41] LABS: Anion Gap 16 mmol/L (10-20); BUN (Urea Nitrogen) 36 mg/dL (9.8-20.1); Calc. Creatinine Clearance 30 mL/min (70-130); Calcium 7.6 mg/dL (7.8-10.44); Carbon Dioxide 19 mmol/L (23-31); Chloride 106 mmol/L (98-107); Estimated GFR-MDRD 37; Glucose 192 mg/dL (80-115); Sodium 137 mmol/L (136-145)
--- NOTE | 2019-12-13 06:47 | PDOC.FM ---
- Subjective Subjective: Ms. Turner notes SOB has improved but that she is not yet back to baseline. Gets SOB with any activity and with conversing during exam she desatted to 89%. - Objective Vital Signs & Weight: Vital Signs (12 hours) Temp Pulse Resp BP BP Pulse Ox 12/13/19 05:45 96.5 F L 67 20 179/76 H 94 L 12/13/19 05:33 69 22 H 94 L 12/13/19 01:15 97 12/12/19 23:58 96 F L 61 18 153/70 H 95 Weight Weight 51.891 kg I&O: 12/11/19 12/12/19 12/13/19 06:59 06:59 06:59 Intake Total 300 Output Total 850 Balance -550 Result Diagrams: 12/13/19 04:56 12/13/19 04:56 Phys Exam - Physical Examination Constitutional: NAD (resting comfortably) MM dry Respiratory: clear to auscultation bilateral (exam limited due to poor quality stethoscope) Cardiovascular: RRR, no significant murmur Gastrointestinal: soft Musculoskeletal: no edema Neurological: non-focal Dx/Plan - Plan Plan: Sepsis 2/2 presumed HAP, improved Initially tachypneic, febrile, leukocytosis. LA of 1.0. CXR showing b/l effusions, no infiltrate noted otherwise. - Will continue broad abx coverage with vanc, cefepime, and levoquin - Procal 0.25, uptrended to 0.3 - Flu neg, RVP and COVID pending - Monitor VS and AM labs Acute HFpEF exacerbation Recently discharged on 12/05. BNP improved from previous - 640. CXR showing cardiomegaly. - S/p 40 IV in ED. On a home dose of 40mg PO furosemide daily, continue - Will continue abx - Strict I/Os, monitor daily weights, fluid restrict to 1500ml/day DMII - aware, mild SS, ACHS Anemia - H/H above baseline, will continue to monitor Thrombocytosis, hx of blood dyscrasia - Seen by Dr. Singh, slightly above baseline. Gets procrit 40,000 units weekly - she is due for a dose on Sunday (12/13). Can consider consulting [place] to see if patient can get procrit dose while here. Hx of COPD, no exacerbation at this time - Albuterol/Ipratropium q6hr MARISOL - On abx as above, no indication for steroids at this time Hx of afib - Rate controlled, on eliquis and will continue CKD stage 3b, at baseline - BUN/Cr: 34/1.40 on admission, will continue to monitor Hx of CVA - on ASA, statin, will continue Code: FULL VTE: eliquis Diet: HH, fluid restrict Dispo: continue current management, empiric antibiotics. RVP and covid pending. Addendum - Attending - Attending Attestation Date/Time: 12/13/19 1206 I personally evaluated the patient and discussed the management with Dr. Resendez I agree with the History, Examination, Assessment and Plan documented above with any addition or exceptions noted below- Patient c/o runny nose and SOB. Afebrile VSS. A/P: 1) Sepsis secondary to HAP- continue abx, MDIs. COVID pending. 2) Possible acute on chronic CHF - BNP at baseline; continue home dose of lasix. Monitor renal function.
[2019-12-13 06:58] LABS: Anisocytosis MARKED = >30 cells (100X) (0-5/hpf); Band 1 % (5-11); Hemoglobin 8.2 g/dL (12.0-16.0); Lymphocytes 5 % (21-51); MDiff Complete? YES; Macrocytosis MODERATE=16-30 cells (100X) (0-5/hpf); Mean Corpuscular HGB CONC 31.1 g/dL (32.0-36.0); Mean Corpuscular Hemoglobin 31.7 pg (27.0-31.0); Mean Platelet Volume 9.7 fL (7.4-10.4); Monocytes 10 % (0-10); Neutrophil 84 % (42-75); Platelet Morphology Comment Appears Increased; RBC Distribution Width 29.7 % (11.5-14.5); Red Blood Cell (RBC) Count 2.59 mill/uL (4.20-5.40); White Blood Cell (WBC) Count 10.2 thou/uL (4.8-10.8)
[2019-12-13] MEDS ORDERED: DARBEPOETIN ALFA IN POLYSORBAT 100 MCG PO SCH (09:00)
[2019-12-13] MEDS ORDERED: Prevnar 13-Val Conj/PF 0.5 ML SYRINGE IM ONE (09:00)
[2019-12-13] MEDS: Hydroxyurea 500 MG CAP PO SCH (10:12)
[2019-12-13] MEDS: Triamterene/Hydrochlorothiazide 37.5 mg/25 mg Tablet PO SCH (10:13)
[2019-12-13] MEDS: Carvedilol 25 MG TAB PO SCH ×2 (10:13→18:16)
[2019-12-13] MEDS: Apixaban 2.5 MG TAB PO SCH ×2 (10:13→16:35)
[2019-12-13] MEDS: Docusate 100 MG CAP PO SCH (10:14)
[2019-12-13] MEDS: Ascorbic Acid 500 mg Chewable Tablet PO SCH (10:14)
[2019-12-13] MEDS ORDERED: hydrOXYzine 10 MG TAB PO PRN (10:20)
[2019-12-13] MEDS: ANAGRELIDE HCL 1 MG PO SCH ×2 (10:21→16:36)
[2019-12-13] MEDS: Capsaicin 0.025% Cream 60 gm Tube TOP SCH ×3 (10:46→19:51)
[2019-12-13] MEDS: Loratadine 10 MG TAB PO PRN (12:42)
[2019-12-13] MEDS: Acetaminophen 325 MG TAB PO PRN (12:59)
[2019-12-13] MEDS: HumaLOG 300 UNITS/3 ML VIAL SC PRN (13:00)
[2019-12-13] MEDS: Lidocaine 5% Patch TD SCH (16:32)
[2019-12-13] MEDS: Atorvastatin Calcium 20 MG TAB PO SCH (19:44)
[2019-12-13] MEDS: Aspirin 81 mg Enteric Coated Tablet PO SCH (19:45)
[2019-12-13] MEDS: Folic Acid 1 MG TAB PO SCH (19:45)
[2019-12-14] MEDS: Fluticasone Propionate Nasal Spray 16 gm Bottle NASAL SCH ×2 (00:42→09:04)
[2019-12-14] MEDS: Albuterol 200 PUFF (6.7GM INHALER) INH SCH ×4 (01:36→19:35)
[2019-12-14] MEDS: Lidocaine Patch Removal 1 EACH TOP SCH ×2 (02:36)
[2019-12-14] MEDS: Capsaicin 0.025% Cream 60 gm Tube TOP SCH ×4 (02:36→22:35)
[2019-12-14] MEDS: Acetaminophen 325 MG TAB PO PRN (02:40)
--- NOTE | 2019-12-14 06:39 | PDOC.FM ---
- Subjective Subjective: Ms. Turner appeared much more comfortable this morning. Notes breathing has improved as well as anxiety. Has restless legs which keep her from sleeping. Denies fever. Reports R shoulder discomfort presents for several weeks, uses topicals which gives some relief. - Objective Vital Signs & Weight: Vital Signs (12 hours) Temp Pulse Resp BP BP Pulse Ox 12/14/19 04:00 98.3 F 71 18 126/83 92 L 12/14/19 00:00 98.2 F 80 18 133/71 93 L 12/13/19 20:00 93 L 12/13/19 19:53 97.5 F L 68 18 109/53 L 93 L Weight Weight 51.891 kg I&O: 12/12/19 12/13/19 12/14/19 06:59 06:59 06:59 Intake Total 300 600 Output Total 850 Balance -550 600 Result Diagrams: 12/13/19 04:56 12/13/19 04:56 Phys Exam - Physical Examination Constitutional: NAD Respiratory: clear to auscultation bilateral (exam limited due to stethescope) Cardiovascular: RRR Gastrointestinal: soft Musculoskeletal: no edema Neurological: non-focal Skin: normal turgor Dx/Plan - Plan Plan: Sepsis 2/2 presumed HAP, improved Initially tachypneic, febrile, leukocytosis. LA of 1.0. CXR showing b/l effusions, no infiltrate noted otherwise. - Will continue broad abx coverage with vanc, cefepime, and levoquin. When blood cx neg will transition to more narrow spectrum PO abx. - Procal 0.25, uptrended to 0.3 - Ucx neg. Bcx prelim NGTD - Flu neg, RPV neg. COVID pending Acute HFpEF exacerbation Recently discharged on 12/05. BNP improved from previous - 640. CXR showing cardiomegaly. - S/p 40 IV in ED. On a home dose of 40mg PO furosemide daily, continue - Will continue abx - Strict I/Os, monitor daily weights, fluid restrict to 1500ml/day DMII - aware, mild SS, ACHS Anemia - H/H above baseline, will continue to monitor Thrombocytosis, hx of blood dyscrasia - Seen by Dr. Singh, slightly above baseline. Gets procrit 40,000 units weekly - contact Mary Askew Sunday to discuss Hx of COPD, no exacerbation at this time - Albuterol/Ipratropium q6hr MARISOL - On abx as above, no indication for steroids at this time Hx of afib - Rate controlled, on eliquis and will continue CKD stage 3b, at baseline - BUN/Cr: 34/1.40 on admission, will continue to monitor Hx of CVA - on ASA, statin, will continue Code: FULL VTE: eliquis Diet: HH, fluid restrict Dispo: continue current management, Covid pending. Respiratory status improving. Addendum - Attending - Attending Attestation Date/Time: 12/14/19 6023 I personally evaluated the patient and discussed the management with Dr. Resendez I agree with the History, Examination, Assessment and Plan documented above with any addition or exceptions noted below - Patient feeling better today; SOB improved. Nasal drainage improved with flonase and claritin. Afebrile VSS. A/P : 1) Dyspnea- most likely secondary to CHF. Now improved; Continue fluid restriction and home lasix dose. 2) THrombocytosis - continue home meds. 3) Anemia- stable; continue procrit as scheduled.
[2019-12-14] MEDS ORDERED: Lidocaine Patch Removal 1 EACH TOP SCH (08:00)
[2019-12-14] MEDS: Hydroxyurea 500 MG CAP PO SCH (08:58)
[2019-12-14] MEDS: Apixaban 2.5 MG TAB PO SCH ×2 (08:59→16:04)
[2019-12-14] MEDS: Ascorbic Acid 500 mg Chewable Tablet PO SCH (08:59)
[2019-12-14] MEDS: Carvedilol 25 MG TAB PO SCH ×2 (09:00→16:06)
[2019-12-14] MEDS: Triamterene/Hydrochlorothiazide 37.5 mg/25 mg Tablet PO SCH (09:00)
[2019-12-14] MEDS: Loratadine 10 MG TAB PO PRN (09:00)
[2019-12-14] MEDS: ANAGRELIDE HCL 1 MG PO SCH ×2 (09:06→16:07)
[2019-12-14] MEDS: Lidocaine 5% Patch TD SCH ×2 (09:40→16:02)
[2019-12-14] MEDS: HumaLOG 300 UNITS/3 ML VIAL SC PRN (11:50)
[2019-12-14] MEDS: Aspirin 81 mg Enteric Coated Tablet PO SCH (20:14)
[2019-12-14] MEDS: Atorvastatin Calcium 20 MG TAB PO SCH (20:15)
[2019-12-14] MEDS: Folic Acid 1 MG TAB PO SCH (20:15)
[2019-12-15] MEDS: Albuterol 200 PUFF (6.7GM INHALER) INH SCH ×4 (01:06→19:13)
[2019-12-15] MEDS: Acetaminophen 325 MG TAB PO PRN (05:08)
[2019-12-15 05:15] LABS: Anion Gap 16 mmol/L (10-20); BUN (Urea Nitrogen) 41 mg/dL (9.8-20.1); Calc. Creatinine Clearance 24 mL/min (70-130); Calcium 8.2 mg/dL (7.8-10.44); Carbon Dioxide 22 mmol/L (23-31); Chloride 106 mmol/L (98-107); Estimated GFR-MDRD 28; Glucose 120 mg/dL (80-115); Potassium 4.7 mmol/L (3.5-5.1); Sodium 139 mmol/L (136-145)
[2019-12-15 05:50] LABS: Platelet Count 1582 thou/uL (130-400)
[2019-12-15 06:16] LABS: #Basophils 0.1 thou/uL (0.0-0.2); #Eosinphils 0.2 thou/uL (0.0-0.7); #Lymphocytes 0.6 thou/uL (1.20-3.40); #Monocytes 1.3 thou/uL (0.11-0.59); #Neutrophils 8.9 thou/uL (1.40-6.50); %Basophils 0.8 % (0.0-1.0); %Eosinophils 1.4 % (0.0-10.0); %Monocytes 11.4 % (0.0-10.0); %Neutrophils 81.4 % (42.0-75.0); Anisocytosis MARKED = >30 cells (100X) (0-5/hpf); Elliptocytes SLIGHT = 2-5 cells (100X) (0-1/hpf); Hemoglobin 8.1 g/dL (12.0-16.0); Large Platelets MODERATE; MDiff Complete? YES; Mean Corpuscular HGB CONC 30.3 g/dL (32.0-36.0); Mean Corpuscular Hemoglobin 30.3 pg (27.0-31.0); Mean Corpuscular Volume 99.9 fL (78.0-98.0); Mean Platelet Volume 9.1 fL (7.4-10.4); Platelet Morphology Comment Appears Increased; RBC Distribution Width 32.5 % (11.5-14.5); Red Blood Cell (RBC) Count 2.67 mill/uL (4.20-5.40); Target Cells SLIGHT = 2-5 cells (100X) (0-1/hpf)
[2019-12-15] MEDS: Lidocaine Patch Removal 1 EACH TOP SCH (06:33)
--- NOTE | 2019-12-15 07:53 | PDOC.FM ---
- Subjective Subjective: pt resting in bed, dyspneic with conversation, no acute distress. denies chest pain - Objective Vital Signs & Weight: Vital Signs (12 hours) Temp Pulse Resp BP BP Pulse Ox 12/15/19 04:00 99 F 71 18 122/59 L 94 L 12/14/19 23:25 92 18 137/61 97 12/14/19 20:00 98.2 F 71 18 129/59 L 93 L Weight Weight 51.891 kg I&O: 12/14/19 12/15/19 12/16/19 06:59 06:59 06:59 Intake Total 600 750 Output Total 400 Balance 600 350 Result Diagrams: 12/15/19 04:38 12/15/19 04:38 Phys Exam - Physical Examination Constitutional: NAD HEENT: moist MMs Neck: no JVD Respiratory: clear to auscultation bilateral Cardiovascular: no significant murmur Gastrointestinal: no distention Musculoskeletal: pulses present Neurological: moves all 4 limbs Psychiatric: normal affect Skin: no rash Dx/Plan (1) Acute respiratory failure with hypoxia Code(s): J96.01 - ACUTE RESPIRATORY FAILURE WITH HYPOXIA Status: Acute (2) Hyperglycemia Code(s): R73.9 - HYPERGLYCEMIA, UNSPECIFIED Status: Acute (3) Leukocytosis Code(s): D72.829 - ELEVATED WHITE BLOOD CELL COUNT, UNSPECIFIED Status: Acute (4) Pacemaker Code(s): Z95.0 - PRESENCE OF CARDIAC PACEMAKER Status: Acute (5) Symptomatic anemia Code(s): D64.9 - ANEMIA, UNSPECIFIED Status: Acute (6) COPD (chronic obstructive pulmonary disease) Status: Chronic Qualifiers: Emphysema type: unspecified (7) HTN (hypertension) Code(s): I10 - ESSENTIAL (PRIMARY) HYPERTENSION Status: Chronic Qualifiers: Hypertension type: essential hypertension Qualified Code(s): I10 - Essential (primary) hypertension - Plan Plan: Sepsis 2/2 presumed HAP, improved Initially tachypneic, febrile, leukocytosis. LA of 1.0. CXR showing b/l effusions, no infiltrate noted otherwise. - de-escalate abx today - Ucx/Bcx NGTD - Flu neg, RPV neg. COVID neg GI bleed - melanotic stool 12/14, eliquis held - monitor hb, consider GI consult with drop or symptoms Acute HFpEF exacerbation Recently discharged on 12/05. BNP improved from previous - 640. CXR showing cardiomegaly. - S/p 40 IV in ED. On a home dose of 40mg PO furosemide daily, continue - Strict I/Os, monitor daily weights, fluid restrict to 1500ml/day DMII - aware, mild SS, ACHS Anemia - H/H above baseline, will continue to monitor Thrombocytosis, hx of blood dyscrasia - Seen by Dr. Singh, slightly above baseline. Gets procrit 40,000 units weekly - contact Mary Askew to discuss Hx of COPD, no exacerbation at this time - Albuterol/Ipratropium q6hr MARISOL - On abx as above, no indication for steroids at this time Hx of afib - Rate controlled - discussed risks of holding eliquis including clot/stroke, pt agrees CKD stage 3b, at baseline - BUN/Cr: 34/1.40 on admission, will continue to monitor Hx of CVA - on ASA, statin, will continue Code: FULL VTE: eliquis Diet: HH, fluid restrict Dispo: cont eval/treat, dc planning Addendum - Attending - Attending Attestation Date/Time: 12/15/19 8390 I personally evaluated the patient and discussed the management with Dr. Man. I agree with the History, Examination, Assessment and Plan documented above with any addition or exceptions noted below. Patient here with multiple chronic conditions that are leading to decline and deconditioning. We will continue gentle diuresis to remove excess fluid from suspected CHF exacerbation. She will need to continue her hematologic meds while here. H/H stable this morning, no need for transfusion. Work with PT as able. COVID negative.
[2019-12-15] MEDS: Apixaban 2.5 MG TAB PO SCH (08:29)
[2019-12-15] MEDS: Fluticasone Propionate Nasal Spray 16 gm Bottle NASAL SCH (08:30)
[2019-12-15] MEDS: Carvedilol 25 MG TAB PO SCH ×2 (08:33→16:49)
[2019-12-15] MEDS: ANAGRELIDE HCL 1 MG PO SCH ×2 (08:34→16:50)
[2019-12-15] MEDS: Ascorbic Acid 500 mg Chewable Tablet PO SCH (08:35)
[2019-12-15] MEDS: Capsaicin 0.025% Cream 60 gm Tube TOP SCH ×3 (08:35→21:22)
[2019-12-15] MEDS: Docusate 100 MG CAP PO SCH (08:36)
[2019-12-15] MEDS: Hydroxyurea 500 MG CAP PO SCH ×2 (08:36→21:19)
[2019-12-15] MEDS: Triamterene/Hydrochlorothiazide 37.5 mg/25 mg Tablet PO SCH (08:37)
--- NOTE | 2019-12-15 11:28 | PQF ---
CLINICAL DOCUMENTATION IMPROVEMENT CLARIFICATION FORM: ICD-10 Updated PLEASE DO AN ADDENDUM TO THE PROGRESS NOTE WITH ANY DOCUMENTATION UPDATES OR ADDITIONS AND CARRY THROUGH TO DC SUMMARY. THANK YOU. DATE: 12/15/2019 ATTN: Dr. Man/ Attending Dr. Hill Please exercise your independent, professional judgment in responding to the clarification form. Clinical indicators are provided on the bottom of this form for your review Please check appropriate box(s): [ ] Empirically treating Gram Negative Pneumonia [ ] Empirically treating Anaerobic Pneumonia [ ] Aspiration Pneumonia [ ] Pneumonia secondary to (specify organism / underlying disease) [ ] Simple Pneumonia [ ] Pneumonia of unknown etiology [ x ] Other diagnosis ___chf exac [ ] Unable to determine In addition, please specify: Present on Admission (POA): [ x] Yes [ ] No [ ] Unable to determine For continuity of documentation, please document condition throughout progress notes and discharge summary. Thank You. CLINICAL INDICATORS - SIGNS / SYMPTOMS / LABS / RESULTS AND LOCATION IN MR ER RECORD 12/11: VS: BP 147/59, Pulse 82; Resp; 27. Temp. 101.3; O2 sat 92 6L Doctor notes: She was treated for healthcare acquired pneumonia with her recent hospitalization. PN 12/14 (Donovan) Sepsis 2/2 presumed HAP, improved Initially tachypneic, febrile, leukocytosis, LA 1.0 CXR showing b/l effusions, no infiltrate noted otherwise RISKS: H&P 12/11: Discharged from hospital on 12/05 for CHF exacerbation and anemia and was sent to rehab due to weakness. PMH: HFpEF, COPD, HTN, DM. previous CVA. Plan: Sepsis 2/2 presumed HAP. Acute HFpEF exacerbation. TREATMENT: H&P 12/11: Will continue broad abx coverage with vanc, cefepime and levaquin. Order 12/13-12/14: Levaquin 750 mg IV q 2 days. PN 12/14 (Donovan) de-escalate abx today Thank you, Sadie (This form is maintained as a part of the permanent medical record) 2014 [employer], [employer]. All Rights Reserved Sadie Lugo RN, BSN [email or web address] [employer] [facility]
[2019-12-15] MEDS ORDERED: EPOETIN ALFA-EPBX (ESRD) 10,000 UNIT/ML VIAL IVP SCH (12:30)
[2019-12-15] MEDS: HumaLOG 300 UNITS/3 ML VIAL SC PRN (13:34)
[2019-12-15] MEDS: Lidocaine 5% Patch TD SCH (16:50)
--- NOTE | 2019-12-15 16:50 | PDOC.MOPN ---
Interval History: Seen at bedside. Had small amount of bloody stool this am. recurrent shortness of breath. No pain. - Vital Signs Vital Signs: Vital Signs (12 hours) Temp Pulse Resp BP BP Pulse Ox 12/15/19 15:52 97.6 F 69 16 133/60 94 L 12/15/19 13:30 94 L 12/15/19 11:43 98.4 F 81 17 126/60 94 L 12/15/19 07:40 97.9 F 70 16 126/58 L 96 Weight Weight 114 lb 6.4 oz - Physical Exam General: Alert HEENT: Atraumatic Lungs: Clear to auscultation Cardiovascular: Regular rate Abdomen: Normal bowel sounds Neurological: Other (facial droop from old CVA) - Labs Result Diagrams: 12/15/19 04:38 12/15/19 04:38 Lab results: Laboratory Results - last 24 hr 12/15/19 11:26: POC Glucose 253 H 12/15/19 04:38: WBC 11.0 H, RBC 2.67 L, Hgb 8.1 L, Hct 26.7 L, MCV 99.9 H, MCH 30.3, MCHC 30.3 L, RDW 32.5 H, Plt Count 1582 H*, MPV 9.1, Neutrophils % 81.4 H , Neutrophils % (Manual) Not Reportable, Lymphocytes % 5.0 L, Monocytes % 11.4 H , Eosinophils % 1.4, Basophils % 0.8, Neutrophils # 8.9 H, Lymphocytes # 0.6 L, Monocytes # 1.3 H, Eosinophils # 0.2, Basophils # 0.1, Large Platelets MODERATE H, Plt Morphology Comment Appears Increased H, Anisocytosis MARKED = >30 cells H , Target Cells SLIGHT = 2-5 cells, Elliptocytes SLIGHT = 2-5 cells 12/15/19 04:38: Procalcitonin 0.27 12/15/19 04:38: Sodium 139, Potassium 4.7, Chloride 106, Carbon Dioxide 22 L, Anion Gap 16, BUN 41 H, Creatinine 1.79 H, Estimated GFR (MDRD) 28, Glucose 120 H, Calcium 8.2 12/12/19 21:18: COVID-19 PCR Not Detected Status: lab reviewed by me A/P - Problem (1) Acute GI bleeding Current Visit: No Code(s): K92.2 - GASTROINTESTINAL HEMORRHAGE, UNSPECIFIED Status: Acute (2) Anasarca Current Visit: No Code(s): R60.1 - GENERALIZED EDEMA Status: Acute (3) History of CVA (cerebrovascular accident) Current Visit: No Code(s): Z86.73 - PRSNL HX OF TIA (TIA), AND CEREB INFRC W/ O RESID DEFICITS Status: Acute (4) A-fib Current Visit: No Code(s): I48.91 - UNSPECIFIED ATRIAL FIBRILLATION Status: Chronic Qualifiers: Atrial fibrillation type: unspecified chronic Qualified Code(s): I48.20 - Chronic atrial fibrillation, unspecified; I48.2 - Chronic atrial fibrillation (5) Essential thrombocytosis Current Visit: No Code(s): D47.3 - ESSENTIAL (HEMORRHAGIC) THROMBOCYTHEMIA Status: Chronic - Plan Plan: 1. increase hydrea 500 mg BID 2. continue anagrelide BID 3. Hold procrit while inpatient 4. Consult Dr. Arroyo per patients request. 5. Discussed with Dr. Singh.
[2019-12-15] MEDS: Aspirin 81 mg Enteric Coated Tablet PO SCH (21:18)
[2019-12-15] MEDS: Atorvastatin Calcium 20 MG TAB PO SCH (21:20)
[2019-12-15] MEDS: Folic Acid 1 MG TAB PO SCH (21:20)
[2019-12-15] MEDS ORDERED: HumaLOG 300 UNITS/3 ML VIAL SC PRN (23:28)
[2019-12-16] MEDS: Albuterol 200 PUFF (6.7GM INHALER) INH SCH ×4 (01:00→18:53)
[2019-12-16] MEDS: Lidocaine Patch Removal 1 EACH TOP SCH (03:29)
[2019-12-16] MEDS: Acetaminophen 325 MG TAB PO PRN ×3 (03:36→15:51)
[2019-12-16] MEDS: Loratadine 10 MG TAB PO PRN (04:36)
[2019-12-16 06:47] LABS: Hemoglobin 6.5 g/dL (12.0-16.0)
[2019-12-16 07:02] LABS: Anion Gap 16 mmol/L (10-20); BUN (Urea Nitrogen) 52 mg/dL (9.8-20.1); Calc. Creatinine Clearance 18 mL/min (70-130); Calcium 7.6 mg/dL (7.8-10.44); Carbon Dioxide 22 mmol/L (23-31); Chloride 106 mmol/L (98-107); Estimated GFR-MDRD 24; Glucose 154 mg/dL (80-115); Potassium 4.3 mmol/L (3.5-5.1); Sodium 140 mmol/L (136-145)
--- NOTE | 2019-12-16 07:09 | PDOC.FM ---
- Subjective Subjective: pt resting in bed, reports continued dyspnea, denies fever. - Objective Vital Signs & Weight: Vital Signs (12 hours) Temp Pulse Resp BP Pulse Ox 12/16/19 06:48 97 12/16/19 03:56 98.3 F 71 18 115/55 L 97 12/15/19 23:38 99.1 F 66 18 119/56 L 96 12/15/19 20:02 97.9 F 71 20 96/50 L 93 L Weight Weight 44.452 kg I&O: 12/15/19 12/16/19 12/17/19 06:59 06:59 06:59 Intake Total 750 720 Output Total 400 Balance 350 720 Result Diagrams: 12/16/19 06:21 12/16/19 06:21 Phys Exam - Physical Examination Constitutional: NAD HEENT: moist MMs Neck: no JVD Respiratory: clear to auscultation bilateral Cardiovascular: no significant murmur Gastrointestinal: no distention Musculoskeletal: no edema Neurological: moves all 4 limbs Psychiatric: normal affect Dx/Plan (1) Acute respiratory failure with hypoxia Code(s): J96.01 - ACUTE RESPIRATORY FAILURE WITH HYPOXIA Status: Acute (2) Hyperglycemia Code(s): R73.9 - HYPERGLYCEMIA, UNSPECIFIED Status: Acute (3) Leukocytosis Code(s): D72.829 - ELEVATED WHITE BLOOD CELL COUNT, UNSPECIFIED Status: Acute (4) Pacemaker Code(s): Z95.0 - PRESENCE OF CARDIAC PACEMAKER Status: Acute (5) Symptomatic anemia Code(s): D64.9 - ANEMIA, UNSPECIFIED Status: Acute (6) COPD (chronic obstructive pulmonary disease) Status: Chronic Qualifiers: Emphysema type: unspecified (7) HTN (hypertension) Code(s): I10 - ESSENTIAL (PRIMARY) HYPERTENSION Status: Chronic Qualifiers: Hypertension type: essential hypertension Qualified Code(s): I10 - Essential (primary) hypertension - Plan Plan: GI bleed - melanotic stool 12/14, eliquis held - Hb below 7, transfuse 1u - consult GI Acute HFpEF exacerbation Recently discharged on 12/05. BNP improved from previous - 640. CXR showing cardiomegaly. - S/p 40 IV in ED, additional dose 12/14. - Strict I/Os, monitor daily weights, fluid restrict to 1500ml/day DMII - aware, mild SS, ACHS Anemia - monitor and transfuse as needed Thrombocytosis, hx of blood dyscrasia - Seen by Dr. Singh, slightly above baseline - hyrdea bid, continue agreline Hx of COPD, no exacerbation at this time - Albuterol/Ipratropium q6hr MARISOL - On abx as above, no indication for steroids at this time Hx of afib - Rate controlled - discussed risks of holding eliquis including clot/stroke, pt agrees CKD stage 3b, at baseline - BUN/Cr: 34/1.40 on admission, will continue to monitor Hx of CVA - on ASA, statin, will continue Code: FULL VTE: SCDs Diet: HH, fluid restrict Dispo: cont eval/treat: acute GI bleed and mild CHF exac primary contributing factors requiring continued hospitalization Addendum - Attending - Attending Attestation Date/Time: 12/16/19 [id number] I personally evaluated the patient and discussed the management with Dr. Man. I agree with the History, Examination, Assessment and Plan documented above with any addition or exceptions noted below.
[2019-12-16] MEDS: ANAGRELIDE HCL 1 MG PO SCH ×2 (08:32→17:00)
[2019-12-16] MEDS: Carvedilol 25 MG TAB PO SCH ×2 (08:32→16:24)
[2019-12-16] MEDS: Ascorbic Acid 500 mg Chewable Tablet PO SCH (08:33)
[2019-12-16] MEDS: Hydroxyurea 500 MG CAP PO SCH ×2 (08:33→20:58)
[2019-12-16] MEDS: Triamterene/Hydrochlorothiazide 37.5 mg/25 mg Tablet PO SCH (08:33)
[2019-12-16] MEDS: Fluticasone Propionate Nasal Spray 16 gm Bottle NASAL SCH (08:34)
[2019-12-16] MEDS: Capsaicin 0.025% Cream 60 gm Tube TOP SCH ×3 (08:34→20:58)
[2019-12-16] MEDS: Pantoprazole 40 MG VIAL IVP SCH ×2 (08:50→20:58)
[2019-12-16] MEDS: HumaLOG 300 UNITS/3 ML VIAL SC PRN ×2 (11:15→17:04)
--- NOTE | 2019-12-16 14:41 | CON ---
DATE OF CONSULTATION: 12/16/2019 REQUESTING PHYSICIAN: Dr. Sohan Man. REASON FOR CONSULTATION: GI bleeding. HISTORY OF PRESENT ILLNESS: Stephania Turner is a very pleasant 69-year-old woman with unfortunate history of COPD, atrial fibrillation with prior history of stroke, on Eliquis chronically, pacemaker placement, and peripheral vascular disease. She also has essential thrombocytosis as part of myeloproliferative disorder and had a fairly recent bone marrow biopsy, which demonstrated some degree of myelofibrosis. Her baseline hemoglobin is between 8 and 9. She has had bleeding complications in the recent past including hemopericardium, status post pericardial window, as well as severe epistaxis, treated by ENT. She has had prior hospitalizations for GI bleeding as well. Back in 2009, she had an EGD showing some gastritis and colonoscopy, which was essentially unremarkable. In 2016, during hospitalization for melena and anemia, she had a normal EGD and colonoscopy, which showed severe diverticulosis in the left colon as well as what appeared to be a stricture in the descending colon. Dr. Mcgowan was unable to move beyond this stricture, which he thought might actually be an anastomotic stricture. At any rate, the patient's overt bleeding at that time stopped completely. The patient recalls having had appendectomy at the time of a in the remote past, but is unsure about any prior partial colon resections. At any rate, that episode in 2016 resolved, but she does continue to have chronic anemia. She gets Procrit injections. She was admitted to the hospital four days ago with fever and dyspnea as well as cough. She was hypoxic initially. There was no chest pain, nausea, or vomiting. She was initially treated with broad-spectrum antibiotics. Imaging suggested decompensation of her heart failure. She was continued on Lasix and Eliquis. Admission hemoglobin was 9.0. BNP was elevated. Over the past few days, since then, her respiratory status has marginally improved. she is not feeling as dyspneic, but still requires oxygen. She has had interval elevation in creatinine from 1.4 up to 2.01. She has also had a decline in hemoglobin from admission value of 9.0, down to 8.1 yesterday. Yesterday, she passed some bright red blood with her stool, and this happened again this morning. Hemoglobin this morning had declined down to 6.5. She has remained hemodynamically stable. She is getting 1 unit of RBC transfusion today. Eliquis was held since yesterday afternoon. Notably, she is not having any abdominal pain or nausea or vomiting. REVIEW OF SYSTEMS: Full review of systems including constitutional, head, eyes, ears, nose, throat, GI, , cardiovascular, respiratory, musculoskeletal, neurologic systems is negative except as noted in the HPI. PAST MEDICAL HISTORY: 1. Colonic diverticulosis, incomplete colonoscopy in 2016 due to strictured area in the descending colon. 2. COPD. 3. Atrial fibrillation, on Eliquis. 4. CVA. 5. Peripheral vascular disease. 6. Pacemaker placement. 7. Hypertension. 8. Hyperlipidemia. 9. Ureteral stent. 10. Cholecystectomy. 11. Essential thrombocytosis. 12. Myeloproliferative disorder. 13. Myelofibrosis per recent bone marrow biopsy. 14. Severe epistaxis, status post ENT treatment in recent months. 15. Hemopericardium, status post pericardial window. ALLERGIES: AMLODIPINE AND LISINOPRIL. INPATIENT MEDICATIONS: 1. Tylenol. 2. Albuterol. 3. Eliquis, held since yesterday afternoon. 4. Vitamin C. 5. Aspirin 81 mg daily. 6. Lipitor. 7. Capsaicin cream. 8. Carvedilol. 9. Vitamin D3. 10. Fluticasone nasal spray. 11. Folic acid. 12. Lasix 40 mg daily p.r.n. 13. Hydroxyurea 500 mg b.i.d. 14. Sliding scale insulin. 15. Atrovent. 16. Loratadine. 17. Myrbetriq, Protonix 40 mg IV q.12 hours, started this morning. 18. Anagrelide. 19. Triamterene/hydrochlorothiazide. 20. Erythropoietin. FAMILY HISTORY: Negative for GI malignancy. SOCIAL HISTORY: She is a former smoker. No alcohol or drug use PHYSICAL EXAMINATION: VITAL SIGNS: Temperature 98.0, blood pressure 105/51, pulse 62, and 95% oxygen saturation on 2 L nasal cannula. GENERAL: Frail elderly 69-year-old woman, sitting up in bed, in mild discomfort from shoulder pain. She is thin and appears chronically ill. SKIN: She is pale. No jaundice, no rashes that were palpable. EYES: No scleral icterus. Extraocular movements intact. ENT: Mucous membranes moist. No oral lesions. LYMPH: No submandibular or supraclavicular lymphadenopathy. THYROID: Nontender to palpation. HEART: Regular rate and rhythm. LUNGS: Clear to auscultation bilaterally. ABDOMEN: The abdomen is flat. There is a ventral hernia in the midline in the upper abdomen, which is easily reducible, somewhat tender to palpation. No other tenderness to palpation. EXTREMITIES: No peripheral edema. VESSELS: Radial pulses 2+ bilaterally. NEUROLOGIC: She has some dysarthria. Moves all extremities well. LABORATORY STUDIES: Hemoglobin 6.5, currently getting 1 unit RBC transfusion; WBC is 11; platelets 1.58 million. Sodium 140, potassium 4.3, BUN 52, creatinine 2.01, calcium 7.6. Urinalysis negative. IMAGING STUDIES: Chest x-ray demonstrated decompensated congestive heart failure. Blood cultures negative. Respiratory viral pathogen panel is all negative. COVID PCR is negative. Influenza A and B are negative. ASSESSMENT AND PLAN: 1. Lower gastrointestinal bleed, started yesterday, clinically stable. 2. Acute on chronic anemia. 3. Myelofibrosis. 4. Atrial fibrillation, on Eliquis, Eliquis held since yesterday afternoon. I had a long discussion with the patient about this presentation. Thankfully, she is hemodynamically stable. Agree with 1 unit RBC transfusion today. Trend H and H tomorrow. I agree with holding the Eliquis, and I think this should continue to be held. Given her worsening myelofibrosis, consider re-evaluation of long-term anticoagulation in this patient, particularly with prior complications of hemopericardium, significant epistaxis, etc. Agree with the IV Protonix started this a.m., though I doubt that this represents any upper GI bleeding. We discussed possibilities would include hemorrhoidal bleed versus diverticular bleed. However, I do not think she is a good candidate for any endoscopic investigation at this time. She has significant cardiopulmonary comorbidities, currently not very well compensated. She had an incomplete colonoscopy due to strictured area in the descending colon back in 2016. With her clinical stability as well as scheduling restrictions in place due to the current COVID pandemic, we are not going to be scheduling her for any endoscopic investigation at this time. Recommend continuing to hold Eliquis, trend H and H, clinically evaluate for further bleeding. If she does continue to have clinically significant bleeding, noninvasive testing such as a tagged RBC scan would be preferable. The patient expresses understanding and is in complete agreement with the plan. GI will continue to follow along. Please call anytime with questions or concerns. Job ID: [id number] MTDD
--- NOTE | 2019-12-16 14:45 | PDOC.MOPN ---
Interval History: continued SOB, hypotension - Vital Signs Vital Signs: Vital Signs (12 hours) Temp Pulse Pulse Pulse Pulse Resp BP 12/16/19 13:30 89 79 103/54 L 12/16/19 13:00 12/16/19 12:45 98 F 62 17 12/16/19 11:09 97.7 F 88 18 12/16/19 10:08 97.8 F 63 17 12/16/19 09:39 97.7 F 63 18 12/16/19 08:25 97.5 F L 65 16 12/16/19 06:48 12/16/19 03:56 98.3 F 71 18 BP BP BP BP Pulse Ox 12/16/19 13:30 87/45 L 12/16/19 13:00 105/51 L 12/16/19 12:45 94/46 L 95 12/16/19 11:09 102/49 L 96 12/16/19 10:08 110/49 L 98 12/16/19 09:39 123/96 H 99 12/16/19 08:25 122/56 L 96 12/16/19 06:48 97 12/16/19 03:56 115/55 L 97 Weight Weight 98 lb - Physical Exam General: Alert, Oriented x3, No acute distress Lungs: Clear to auscultation, Normal air movement Cardiovascular: Other (murmur) Abdomen: Normal bowel sounds, Soft, No tenderness, No hepatospenomegaly, No masses Extremities: No clubbing, No cyanosis, No edema, Normal pulses, No tenderness/ swelling Skin: No rashes, No breakdown, No significant lesion Neurological: Normal gait, Normal speech, Strength at 5/5 X4 ext, Normal tone, Sensation intact, Other (slurred speech) Psych/Mental Status: Mental status NL - Labs Result Diagrams: 12/16/19 06:21 12/16/19 06:21 Lab results: Laboratory Results - last 24 hr 12/16/19 11:03: POC Glucose 270 H 12/16/19 07:52: Blood Type A POSITIVE, Antibody Screen NEGATIVE, Crossmatch See Detail 12/16/19 06:21: Sodium 140, Potassium 4.3, Chloride 106, Carbon Dioxide 22 L, Anion Gap 16, BUN 52 H, Creatinine 2.01 H, Estimated GFR (MDRD) 24, Glucose 154 H, Calcium 7.6 L 12/16/19 06:21: Hgb 6.5 L, Hct 20.0 L 12/16/19 05:29: POC Glucose 171 H 12/15/19 20:47: POC Glucose 259 H 12/15/19 16:50: POC Glucose 91 Status: lab reviewed by me A/P - Problem (1) Acute GI bleeding Current Visit: No Code(s): K92.2 - GASTROINTESTINAL HEMORRHAGE, UNSPECIFIED Status: Acute (2) Anasarca Current Visit: No Code(s): R60.1 - GENERALIZED EDEMA Status: Acute (3) History of CVA (cerebrovascular accident) Current Visit: No Code(s): Z86.73 - PRSNL HX OF TIA (TIA), AND CEREB INFRC W/ O RESID DEFICITS Status: Acute (4) A-fib Current Visit: No Code(s): I48.91 - UNSPECIFIED ATRIAL FIBRILLATION Status: Chronic Qualifiers: Atrial fibrillation type: unspecified chronic Qualified Code(s): I48.20 - Chronic atrial fibrillation, unspecified; I48.2 - Chronic atrial fibrillation (5) Essential thrombocytosis Current Visit: No Code(s): D47.3 - ESSENTIAL (HEMORRHAGIC) THROMBOCYTHEMIA Status: Chronic - Plan Plan: 1. hgb dropped, likely due to bleed. No scope planned as unable to tolerate 2. transfuse 1 unit and recheck CBC in am 3. Dr. Arroyo for opinion re: cardiac issues 4. Dr. Singh will see in am.
[2019-12-16] MEDS ORDERED: Furosemide 20 MG/2 ML VIAL SLOW IVP SCH (15:45)
[2019-12-16] MEDS: Lidocaine 5% Patch TD SCH (15:58)
--- NOTE | 2019-12-16 16:04 | CON ---
DATE OF CONSULTATION: HISTORY OF PRESENT ILLNESS: The patient is a 69-year-old woman with a history of permanent atrial fibrillation and coronary artery disease, who presented with increasing dyspnea. The patient has previously undergone a cardiac catheterization and found to have a 50% RCA lesion. The patient was seen in 2013 with a cerebrovascular accident. She at that time was in atrial fibrillation. She was started on Coumadin. The patient subsequently has had placement of electronic pacemaker. The patient has a history of congestive heart failure secondary to diastolic dysfunction. She was in her usual state of health when she was admitted with increasing dyspnea. The patient was noted to have some following hemoglobin and felt to be suggestive of GI bleed. The patient's fall in hemoglobin and is thought to have had a GI bleed. The patient reports increasing weakness and dyspnea. She denies having any chest discomfort. PAST MEDICAL HISTORY: 1. Coronary artery disease. 2. CVA. 3. Atrial fibrillation. 4. Dyslipidemia. 5. Hypertension. 6. Myelofibrosis. PAST SURGICAL HISTORY: She has had a laparoscopic cholecystectomy. She has had ureteral surgery. She has had a pericardial window. She has had an appendectomy, tubal ligation, hysterectomy, , parotid tumor removal. FAMILY HISTORY: Positive family history of heart disease. SOCIAL HISTORY: Former smoker. REVIEW OF SYSTEMS: Ten-point system otherwise unremarkable. ALLERGIES: SHE IS ALLERGIC TO MORPHINE, AMLODIPINE, AND LISINOPRIL. PHYSICAL EXAMINATION: GENERAL: Pale woman, in no acute distress. VITAL SIGNS: Blood pressure 103/54. NECK: Showed no jugular venous distention. LUNGS: Clear to auscultation. HEART: Regular rate and rhythm. Normal S1 and S2. No murmurs. ABDOMEN: Nondistended. EXTREMITIES: Showed no edema. LABORATORY RESULTS: Hemoglobin is 6.5, hematocrit 20.0, white blood cell count 11.0, platelets are 1582. Sodium 140, potassium 4.3, chloride 103, bicarbonate 22, BUN 52, and creatinine 2.0. IMAGING DATA: EKG revealed atrial fibrillation with an electronic pacemaker. IMPRESSION: 1. Permanent atrial fibrillation. 2. Gastrointestinal hemorrhage. 3. Coronary artery disease. 4. Hypertension. 5. History of cerebrovascular accident. 6. History of pericardial window. 7. Thrombocytosis. PLAN: This patient presents with a GI bleed. She has been off her Eliquis. From a cardiac standpoint, we will continue to hold that and her aspirin with the fall in her hematocrit. I will discontinue these medications at this time. We will follow this patient with you through her hospitalization. Job ID: [id number]
[2019-12-16] MEDS: Atorvastatin Calcium 20 MG TAB PO SCH (20:58)
[2019-12-16] MEDS: Folic Acid 1 MG TAB PO SCH (20:58)
[2019-12-17] MEDS: Albuterol 200 PUFF (6.7GM INHALER) INH SCH ×2 (00:41→07:49)
[2019-12-17] MEDS: Lidocaine Patch Removal 1 EACH TOP SCH (01:28)
[2019-12-17 05:05] LABS: Platelet Count 1305 thou/uL (130-400)
[2019-12-17 05:30] LABS: Anion Gap 15 mmol/L (10-20); BUN (Urea Nitrogen) 48 mg/dL (9.8-20.1); Calc. Creatinine Clearance 19 mL/min (70-130); Calcium 8.1 mg/dL (7.8-10.44); Carbon Dioxide 24 mmol/L (23-31); Chloride 106 mmol/L (98-107); Estimated GFR-MDRD 26; Glucose 149 mg/dL (80-115); Potassium 4.1 mmol/L (3.5-5.1); Sodium 141 mmol/L (136-145)
[2019-12-17 06:07] LABS: #Basophils 0.1 thou/uL (0.0-0.2); #Eosinphils 0.1 thou/uL (0.0-0.7); #Lymphocytes 1.3 thou/uL (1.20-3.40); #Neutrophils 10.7 thou/uL (1.40-6.50); %Basophils 0.4 % (0.0-1.0); %Eosinophils 1.1 % (0.0-10.0); %Lymphocytes 9.5 % (21.0-51.0); %Monocytes 7.6 % (0.0-10.0); %Neutrophils 81.4 % (42.0-75.0); Anisocytosis MARKED = >30 cells (100X) (0-5/hpf); Hemoglobin 8.7 g/dL (12.0-16.0); MDiff Complete? YES; Mean Corpuscular HGB CONC 32.4 g/dL (32.0-36.0); Mean Corpuscular Hemoglobin 31.6 pg (27.0-31.0); Mean Corpuscular Volume 97.5 fL (78.0-98.0); Mean Platelet Volume 9.1 fL (7.4-10.4); Platelet Morphology Comment Appears Increased; RBC Distribution Width 29.4 % (11.5-14.5); Red Blood Cell (RBC) Count 2.75 mill/uL (4.20-5.40); White Blood Cell (WBC) Count 13.2 thou/uL (4.8-10.8)
--- NOTE | 2019-12-17 07:03 | PDOC.FM ---
- Subjective Subjective: pt sitting at the side of her bed, reports dyspnea when traveling to bedside commode. denies other bleeding/melanotic stools. still understands and agrees it is best to DC anti-coag - Objective Vital Signs & Weight: Vital Signs (12 hours) Temp Pulse Resp BP Pulse Ox 12/17/19 03:53 99.3 F 67 18 132/66 94 L 12/16/19 20:00 98.1 F 81 20 115/56 L 93 L Weight Weight 44.906 kg I&O: 12/15/19 12/16/19 12/17/19 06:59 06:59 06:59 Intake Total 388 874 0896 Output Total 400 Balance 493 122 6750 Result Diagrams: 12/17/19 04:46 12/17/19 04:46 Phys Exam - Physical Examination Constitutional: NAD HEENT: moist MMs Neck: no JVD Respiratory: clear to auscultation bilateral Cardiovascular: no significant murmur Gastrointestinal: no distention Musculoskeletal: no edema Neurological: moves all 4 limbs Psychiatric: normal affect Skin: no rash Dx/Plan (1) Acute respiratory failure with hypoxia Code(s): J96.01 - ACUTE RESPIRATORY FAILURE WITH HYPOXIA Status: Acute (2) Hyperglycemia Code(s): R73.9 - HYPERGLYCEMIA, UNSPECIFIED Status: Acute (3) Leukocytosis Code(s): D72.829 - ELEVATED WHITE BLOOD CELL COUNT, UNSPECIFIED Status: Acute (4) Pacemaker Code(s): Z95.0 - PRESENCE OF CARDIAC PACEMAKER Status: Acute (5) Symptomatic anemia Code(s): D64.9 - ANEMIA, UNSPECIFIED Status: Acute (6) COPD (chronic obstructive pulmonary disease) Status: Chronic Qualifiers: Emphysema type: unspecified (7) HTN (hypertension) Code(s): I10 - ESSENTIAL (PRIMARY) HYPERTENSION Status: Chronic Qualifiers: Hypertension type: essential hypertension Qualified Code(s): I10 - Essential (primary) hypertension - Plan Plan: GI bleed - melanotic stool 12/14, eliquis/asa held, protonix BID - monitor Hb. s/p 1u - GI consulted, appreciate recs Acute HFpEF exacerbation Recently discharged on 12/05. BNP improved from previous - 640. CXR showing cardiomegaly. - S/p 40 IV in ED, additional dose 12/14. - Strict I/Os, monitor daily weights, fluid restrict to 1500ml/day - cardiology consulted by oncology, appreciate recs DMII - aware, mild SS, ACHS Anemia - monitor and transfuse as needed Thrombocytosis, hx of blood dyscrasia - Seen by Dr. Singh, slightly above baseline - hyrdea bid, continue agreline Hx of COPD, no exacerbation at this time - Albuterol/Ipratropium q6hr MARISOL - On abx as above, no indication for steroids at this time Hx of afib - Rate controlled - discussed risks of holding eliquis including clot/stroke, pt agrees CKD stage 3b, at baseline - BUN/Cr: 34/1.40 on admission, will continue to monitor Hx of CVA - on ASA, statin, will continue Code: FULL VTE: SCDs Diet: HH, fluid restrict Dispo: dc w/in 1-2 days without continued bleeding. home health. Addendum - Attending - Attending Attestation Date/Time: 12/17/19 8271 I personally evaluated the patient and discussed the management with Dr. Man. I agree with the History, Examination, Assessment and Plan documented above with any addition or exceptions noted below. Changes to chemo regimen per Oncology. Pain is improved. Cardiology and GI on board to help with decision about continuing OAC in the setting of some sort of GI bleed. Blood counts stable.
[2019-12-17] MEDS ORDERED: Morphine 2 MG/ML SYRINGE SLOW IVP PRN (07:08)
[2019-12-17] MEDS: Ascorbic Acid 500 mg Chewable Tablet PO SCH (08:31)
[2019-12-17] MEDS: Pantoprazole 40 MG VIAL IVP SCH ×2 (08:31→23:10)
[2019-12-17] MEDS: Triamterene/Hydrochlorothiazide 37.5 mg/25 mg Tablet PO SCH (08:31)
[2019-12-17] MEDS: Carvedilol 6.25 MG TAB PO SCH ×2 (08:32→16:37)
[2019-12-17] MEDS: ANAGRELIDE HCL 1 MG PO SCH (08:32)
[2019-12-17] MEDS: Hydroxyurea 500 MG CAP PO SCH ×4 (08:32→23:09)
--- NOTE | 2019-12-17 08:32 | PDOC.MOPN ---
Interval History: she is still very sob. even with justspeaking and walking short distances. she had some GI bleeding yesterday but none today. she is weak. she has noted shehas R neck pain when she is anemic and when she gets transfused the neck pain goes away - Vital Signs Vital Signs: Vital Signs (12 hours) Temp Pulse Resp BP BP Pulse Ox 12/17/19 07:23 98.7 F 67 18 123/57 L 93 L 12/17/19 03:53 99.3 F 67 18 132/66 94 L Weight Weight 99 lb - Physical Exam General: Mild distress (RR elevated with talking), Other (RR elevated with talking, o/w exam deferred because of social distancing) - Labs Result Diagrams: 12/17/19 04:46 12/17/19 04:46 Lab results: Laboratory Results - last 24 hr 12/17/19 05:52: POC Glucose 177 H 12/17/19 04:46: WBC 13.2 H, RBC 2.75 L, Hgb 8.7 L, Hct 26.8 L, MCV 97.5, MCH 31.6 H, MCHC 32.4, RDW 29.4 H, Plt Count 1305 H*, MPV 9.1, Neutrophils % 81.4 H , Neutrophils % (Manual) Not Reportable, Lymphocytes % 9.5 L, Monocytes % 7.6, Eosinophils % 1.1, Basophils % 0.4, Neutrophils # 10.7 H, Lymphocytes # 1.3, Monocytes # 1.0 H, Eosinophils # 0.1, Basophils # 0.1, Plt Morphology Comment Appears Increased H, Anisocytosis MARKED = >30 cells H 12/17/19 04:46: Sodium 141, Potassium 4.1, Chloride 106, Carbon Dioxide 24, Anion Gap 15, BUN 48 H, Creatinine 1.91 H, Estimated GFR (MDRD) 26, Glucose 149 H, Calcium 8.1 12/16/19 20:56: POC Glucose 163 H 12/16/19 16:56: POC Glucose 250 H 12/16/19 11:03: POC Glucose 270 H 12/16/19 07:52: Blood Type A POSITIVE, Antibody Screen NEGATIVE, Crossmatch See Detail A/P - Problem (1) Acute GI bleeding Current Visit: No Code(s): K92.2 - GASTROINTESTINAL HEMORRHAGE, UNSPECIFIED Status: Acute (2) History of CVA (cerebrovascular accident) Current Visit: No Code(s): Z86.73 - PRSNL HX OF TIA (TIA), AND CEREB INFRC W/ O RESID DEFICITS Status: Acute (3) Pacemaker Current Visit: No Code(s): Z95.0 - PRESENCE OF CARDIAC PACEMAKER Status: Acute (4) Pneumonia Current Visit: No Code(s): J18.9 - PNEUMONIA, UNSPECIFIED ORGANISM Status: Acute Qualifiers: Pneumonia type: due to unspecified organism Laterality: right Lung location: lower lobe of lung Qualified Code(s): J18.9 - Pneumonia, unspecified organism (5) Sick sinus syndrome Current Visit: No Code(s): I49.5 - SICK SINUS SYNDROME Status: Acute (6) Symptomatic anemia Current Visit: No Code(s): D64.9 - ANEMIA, UNSPECIFIED Status: Acute (7) A-fib Current Visit: No Code(s): I48.91 - UNSPECIFIED ATRIAL FIBRILLATION Status: Chronic Qualifiers: Atrial fibrillation type: unspecified chronic Qualified Code(s): I48.20 - Chronic atrial fibrillation, unspecified; I48.2 - Chronic atrial fibrillation (8) Essential thrombocytosis Current Visit: No Code(s): D47.3 - ESSENTIAL (HEMORRHAGIC) THROMBOCYTHEMIA Status: Chronic (9) Peripheral vascular disease Current Visit: No Code(s): I73.9 - PERIPHERAL VASCULAR DISEASE, UNSPECIFIED Status: Chronic - Plan Plan: 1. discuss with Dr. Arroyo. She has been doing poorly since we stopped amiodarone and started anagrelide. I have recommended we stop anagrelide and will see if she needs to restart amiodarone. appropriately i will increase her hydrea. As an outpatient i am attempting to get her lesleyi. She is aware she is high risk for stroke and bleed 2. stop asa, i would like her to be on eliquis if possible but will leave her anticoagulation up to cardiology 3. i think her neck pain could be a manifestation of atypical angina, she will let the nurse know if this returns 4. likely she will return to rehab after she discharges
[2019-12-17] MEDS: Capsaicin 0.025% Cream 60 gm Tube TOP SCH ×3 (08:33→23:08)
[2019-12-17] MEDS: Docusate 100 MG CAP PO SCH (08:34)
[2019-12-17] MEDS: Fluticasone Propionate Nasal Spray 16 gm Bottle NASAL SCH (08:34)
[2019-12-17] MEDS: Gabapentin 100 MG CAP PO SCH ×2 (08:37→23:09)
[2019-12-17] MEDS: Albuterol Sulfate 1.25 MG/3 ML NEB NEB SCH ×2 (14:04→18:51)
--- NOTE | 2019-12-17 16:54 | PRG ---
DATE OF SERVICE: 12/17/2019 REASON FOR CONSULTATION: Hematochezia, anemia. SUBJECTIVE: Overnight, the patient did have 1 bowel movement that was nonbloody in nature, but instead light brown in coloration with no difficulty with defecation. Since being admitted to the hospital, she has not had any further episodes of hematochezia although she does still continued to have neck pain and generalized weakness that she attributes to her significant anemia. Currently, she denies any nausea, vomiting, fevers, chills, hematemesis, melena, hematochezia, or abdominal pain. OBJECTIVE: VITAL SIGNS: Temperature 97.6, pulse 90, blood pressure 113/57, respiratory rate 16, saturating 100% on 2 L nasal cannula. GENERAL: The patient was sitting at bedside, in no acute distress. Alert and oriented x4. CARDIOVASCULAR: Regular rate and rhythm with no discernible murmurs, gallops, or rubs. RESPIRATORY: Clear to auscultation bilaterally. ABDOMEN: Normoactive bowel sounds. Soft. Mild tenderness to palpation along the ventral hernia and midline. EXTREMITIES: No cyanosis, clubbing, or edema. LABORATORY DATA: CBC with a white blood cell count of 13.2, hemoglobin 8.7, hematocrit 26.8, platelets 1305. Chemistry with a sodium of 141, potassium 4.1, chloride 106, CO2 of 24, BUN 48, creatinine 1.91, glucose 149. IMAGING DATA: No current GI imaging is available for review. ASSESSMENT AND PLAN: The patient is a 69-year-old female with past medical history of colonic diverticulosis with incomplete colonoscopy in 2016, COPD, atrial fibrillation on anticoagulation, cerebrovascular accident, peripheral vascular disease, cardiac arrhythmia status post pacemaker placement, hypertension, hyperlipidemia, essential thrombocytosis, myelofibrosis confirmed via bone marrow biopsy and more recently hemopericardium, status post pericardial window, presenting with complaints of hematochezia. Hematochezia: The patient presented to the hospital with complaints of hematochezia, characterized as bright red blood per rectum that was present both on the toilet and on the toilet paper. Initial evaluation of her H and H on admission showed that there was no significant derangement from baseline; however, yesterday she did have a significant decrease to hemoglobin of 6.5 for which she received 1 unit of PRBCs. Today, her H and H have responded inappropriately with a hemoglobin of 8.5 (projected hemoglobin should be 7.5), raising concern about whether or not the hemoglobin yesterday was an accurate value. With stopping the Eliquis, she has not had any further episodes of hematochezia, raising the possibility of cessation of GI bleeding. At this time, the differential could include diverticular bleeding, stercoral colitis, arteriovenous malformation, Dieulafoy lesion, hemorrhoidal bleeding and/or GI neoplasm with extensive discussion with the patient at this time, she is reluctant to proceed with colonoscopy, but would prefer continued monitoring of her H and H and proceeding with colonoscopy if her H and H continues to fall or if she experiences significant hematochezia. RECOMMENDATIONS: 1. Would continue to trend her H and H and transfuse as necessary to maintain an H and H of 7/21. 2. Continue to monitor clinically for signs of active GI bleeding. 3. Would continue to hold any anticoagulation in light of possible GI bleed. 4. If the patient continues to have downtrending H and H and/or significant hematochezia, would reconsider colonoscopy at that time. 5. We would place the patient on appropriate bowel regimen to avoid constipation and further hematochezia. 6. We will continue to follow. Please call with any questions. Job ID: [id number]
[2019-12-17] MEDS: Lidocaine 5% Patch TD SCH (17:16)
[2019-12-17] MEDS: HumaLOG 300 UNITS/3 ML VIAL SC PRN (17:37)
[2019-12-17] MEDS: Folic Acid 1 MG TAB PO SCH (23:09)
[2019-12-17] MEDS: Atorvastatin Calcium 20 MG TAB PO SCH (23:09)
[2019-12-18] MEDS: Albuterol Sulfate 1.25 MG/3 ML NEB NEB SCH ×4 (01:06→18:16)
[2019-12-18 04:55] LABS: Hemoglobin 8.4 g/dL (12.0-16.0); Mean Corpuscular HGB CONC 32.5 g/dL (32.0-36.0); Mean Corpuscular Hemoglobin 31.5 pg (27.0-31.0); Mean Platelet Volume 9.2 fL (7.4-10.4); Platelet Count 1630 thou/uL (130-400); RBC Distribution Width 30.3 % (11.5-14.5); Red Blood Cell (RBC) Count 2.66 mill/uL (4.20-5.40); White Blood Cell (WBC) Count 11.3 thou/uL (4.8-10.8)
[2019-12-18 04:56] LABS: #Basophils 0.1 thou/uL (0.0-0.2); #Eosinphils 0.2 thou/uL (0.0-0.7); #Lymphocytes 1.2 thou/uL (1.20-3.40); #Monocytes 0.9 thou/uL (0.11-0.59); #Neutrophils 8.9 thou/uL (1.40-6.50); %Basophils 0.6 % (0.0-1.0); %Eosinophils 1.5 % (0.0-10.0); %Lymphocytes 10.6 % (21.0-51.0); %Monocytes 8.2 % (0.0-10.0); Anion Gap 13 mmol/L (10-20); BUN (Urea Nitrogen) 39 mg/dL (9.8-20.1); Calc. Creatinine Clearance 24 mL/min (70-130); Calcium 7.9 mg/dL (7.8-10.44); Carbon Dioxide 24 mmol/L (23-31); Chloride 108 mmol/L (98-107); Estimated GFR-MDRD 34; Glucose 141 mg/dL (80-115); Potassium 4.2 mmol/L (3.5-5.1); Sodium 141 mmol/L (136-145)
[2019-12-18] MEDS: Lidocaine Patch Removal 1 EACH TOP SCH (05:33)
--- NOTE | 2019-12-18 07:01 | PDOC.FM ---
- Subjective Subjective: pt sitting up at bedside, feels better than yesterday. still much difficulty getting to bedside commode. adament about her being able to care for her at home when ready for dc - Objective Vital Signs & Weight: Vital Signs (12 hours) Temp Pulse Resp BP Pulse Ox 12/18/19 04:00 98.4 F 64 18 142/65 H 92 L 12/18/19 01:06 65 16 95 12/18/19 00:33 94 L 12/17/19 20:00 98.3 F 61 16 115/53 L 90 L Weight Weight 44.679 kg I&O: 12/16/19 12/17/19 12/18/19 06:59 06:59 06:59 Intake Total 720 1070 600 Output Total 1250 Balance 720 1070 -650 Result Diagrams: 12/18/19 04:06 12/18/19 04:06 Phys Exam - Physical Examination Constitutional: NAD HEENT: moist MMs Neck: supple Gastrointestinal: no distention Musculoskeletal: no edema Neurological: moves all 4 limbs Psychiatric: normal affect Skin: no rash Dx/Plan (1) Acute respiratory failure with hypoxia Code(s): J96.01 - ACUTE RESPIRATORY FAILURE WITH HYPOXIA Status: Acute (2) Hyperglycemia Code(s): R73.9 - HYPERGLYCEMIA, UNSPECIFIED Status: Acute (3) Leukocytosis Code(s): D72.829 - ELEVATED WHITE BLOOD CELL COUNT, UNSPECIFIED Status: Acute (4) Pacemaker Code(s): Z95.0 - PRESENCE OF CARDIAC PACEMAKER Status: Acute (5) Symptomatic anemia Code(s): D64.9 - ANEMIA, UNSPECIFIED Status: Acute (6) COPD (chronic obstructive pulmonary disease) Status: Chronic Qualifiers: Emphysema type: unspecified (7) HTN (hypertension) Code(s): I10 - ESSENTIAL (PRIMARY) HYPERTENSION Status: Chronic Qualifiers: Hypertension type: essential hypertension Qualified Code(s): I10 - Essential (primary) hypertension - Plan Plan: GI bleed - melanotic stool 12/14, eliquis/asa held, protonix BID - monitor Hb. s/p 1u - GI consulted, appreciate recs Acute HFpEF exacerbation Recently discharged on 12/05. BNP improved from previous - 640. CXR showing cardiomegaly. - S/p 40 IV in ED, additional dose 3/30. - Strict I/Os, monitor daily weights, fluid restrict to 1500ml/day - cardiology consulted by oncology, appreciate recs DMII - aware, mild SS, ACHS Anemia - monitor and transfuse as needed Thrombocytosis, hx of blood dyscrasia - Seen by Dr. Singh, slightly above baseline - mgmt of meds by onc Hx of COPD, no exacerbation at this time - Albuterol/Ipratropium q6hr MARISOL - On abx as above, no indication for steroids at this time Hx of afib - Rate controlled - discussed risks of holding eliquis including clot/stroke, pt agrees CKD stage 3b, at baseline - BUN/Cr: 34/1.40 on admission, will continue to monitor Hx of CVA - on ASA, statin, will continue Code: FULL VTE: SCDs Diet: HH, fluid restrict Dispo: monitor for continued bleeding, medication changes. DC today or tomorrow Addendum - Attending - Attending Attestation Date/Time: 12/18/19 1102 I personally evaluated the patient and discussed the management with Dr. Man. I agree with the History, Examination, Assessment and Plan documented above with any addition or exceptions noted below.
[2019-12-18] MEDS ORDERED: Capsaicin 0.025% Cream 60 gm Tube TOP PRN (09:15)
[2019-12-18] MEDS ORDERED: Gabapentin 100 MG CAP PO PRN (09:16)
[2019-12-18] MEDS: Carvedilol 6.25 MG TAB PO SCH ×2 (09:34→17:29)
[2019-12-18] MEDS: Ascorbic Acid 500 mg Chewable Tablet PO SCH (09:34)
[2019-12-18] MEDS: Hydroxyurea 500 MG CAP PO SCH ×2 (09:35→21:18)
[2019-12-18] MEDS: Fluticasone Propionate Nasal Spray 16 gm Bottle NASAL SCH (09:35)
[2019-12-18] MEDS: Pantoprazole 40 MG VIAL IVP SCH ×2 (09:36→21:19)
[2019-12-18] MEDS: Triamterene/Hydrochlorothiazide 37.5 mg/25 mg Tablet PO SCH (09:37)
[2019-12-18] MEDS: Capsaicin 0.025% Cream 60 gm Tube TOP SCH (10:23)
[2019-12-18] MEDS: Gabapentin 100 MG CAP PO SCH (10:24)
[2019-12-18] MEDS: HumaLOG 300 UNITS/3 ML VIAL SC PRN ×2 (11:45→17:29)
--- NOTE | 2019-12-18 12:05 | PDOC.MOPN ---
Interval History: feeling much better today. - Vital Signs Vital Signs: Vital Signs (12 hours) Temp Pulse Resp BP BP BP Pulse Ox 12/18/19 09:34 115/57 L 12/18/19 07:33 97.9 F 80 16 133/64 95 12/18/19 07:10 85 18 95 12/18/19 04:00 98.4 F 64 18 142/65 H 92 L 12/18/19 01:06 65 16 95 12/18/19 00:33 94 L Weight Weight 98 lb 8 oz - Physical Exam General: Alert, Oriented x3, No acute distress HEENT: Atraumatic, PERRLA, EOMI, Mucous membr. moist/pink Lungs: Other Cardiovascular: Regular rate Abdomen: Normal bowel sounds, Soft, No tenderness, No hepatospenomegaly, No masses Neurological: Other - Labs Result Diagrams: 12/18/19 04:06 12/18/19 04:06 Lab results: Laboratory Results - last 24 hr 12/18/19 10:35: POC Glucose 342 H 12/18/19 05:50: POC Glucose 172 H 12/18/19 04:06: WBC 11.3 H, RBC 2.66 L, Hgb 8.4 L, Hct 25.9 L, MCV 97.0, MCH 31.5 H, MCHC 32.5, RDW 30.3 H, Plt Count 1630 H*, MPV 9.2, Neutrophils % 79.0 H , Neutrophils % (Manual) Not Reportable, Lymphocytes % 10.6 L, Monocytes % 8.2, Eosinophils % 1.5, Basophils % 0.6, Neutrophils # 8.9 H, Lymphocytes # 1.2, Monocytes # 0.9 H, Eosinophils # 0.2, Basophils # 0.1 12/18/19 04:06: Sodium 141, Potassium 4.2, Chloride 108 H, Carbon Dioxide 24, Anion Gap 13, BUN 39 H, Creatinine 1.52 H, Estimated GFR (MDRD) 34, Glucose 141 H, Calcium 7.9 12/17/19 20:33: POC Glucose 218 H 12/17/19 16:50: POC Glucose 200 H 12/17/19 11:04: POC Glucose 170 H Status: lab reviewed by me A/P - Problem (1) Acute GI bleeding Current Visit: No Code(s): K92.2 - GASTROINTESTINAL HEMORRHAGE, UNSPECIFIED Status: Acute (2) Anasarca Current Visit: No Code(s): R60.1 - GENERALIZED EDEMA Status: Acute (3) History of CVA (cerebrovascular accident) Current Visit: No Code(s): Z86.73 - PRSNL HX OF TIA (TIA), AND CEREB INFRC W/ O RESID DEFICITS Status: Acute (4) A-fib Current Visit: No Code(s): I48.91 - UNSPECIFIED ATRIAL FIBRILLATION Status: Chronic Qualifiers: Atrial fibrillation type: unspecified chronic Qualified Code(s): I48.20 - Chronic atrial fibrillation, unspecified; I48.2 - Chronic atrial fibrillation (5) Essential thrombocytosis Current Visit: No Code(s): D47.3 - ESSENTIAL (HEMORRHAGIC) THROMBOCYTHEMIA Status: Chronic - Plan Plan: 1. discuss with Dr. Arroyo. She has been doing poorly since we stopped amiodarone and started anagrelide. I have recommended we stop anagrelide and will see if she needs to restart amiodarone. hydrea increased. attempting to get her jakafi as outpatient. She is aware she is high risk for stroke and bleed 2. stop asa, i would like her to be on eliquis if possible but will leave her anticoagulation up to cardiology 3. i think her neck pain could be a manifestation of atypical angina, she will let the nurse know if this returns 4. insists on going home upon discharge
--- NOTE | 2019-12-18 14:13 | PRG ---
DATE OF SERVICE: 12/18/2019 SUBJECTIVE: Ms. Turner said that she has had a normal stool today, this is the first one that has been brown. She has a lot of cough when she tries to talk. She asked if she was going to need to stay on the medicine. OBJECTIVE: VITAL SIGNS: Temperature 97.9, blood pressure 115/57, pulse 80. GENERAL: She is frail and thin. She is in no overt distress. ABDOMEN: Nontender. LABORATORY DATA: Platelets 1 million 630 today, white count 11.4, hemoglobin 8.4, stable. BUN and creatinine are 39 and 1.52. ASSESSMENT: 1. Hematochezia, resolved, likely related to Eliquis and prior history of diverticular bleeding. 2. Myelofibrosis, which is worsening. 3. Prior complications of hemopericardium and significant epistaxis with Coumadin. Apparently until this episode of bleeding, she was doing pretty well with the Eliquis. RECOMMENDATIONS: 1. Advance diet slowly. 2. We would consider continuing p.o. PPI as she has significant risk of bleeding complications with being on chronic anticoagulation. 3. We will defer issues of chronic anticoagulation in light of her worsening myelofibrosis and bleeding complications in the past to her Cardiology Service and Primary Team. We will sign off at this time. If I can be any further assistance in her care, please do not hesitate to contact me. Job ID: [id number]
[2019-12-18] MEDS ORDERED: Lidocaine 5% Patch TD PRN (16:00)
[2019-12-18] MEDS: Atorvastatin Calcium 20 MG TAB PO SCH (21:18)
[2019-12-18] MEDS: Folic Acid 1 MG TAB PO SCH (21:18)
[2019-12-19] MEDS: Albuterol Sulfate 1.25 MG/3 ML NEB NEB SCH ×2 (00:27→10:05)
[2019-12-19 04:21] LABS: #Basophils 0.1 thou/uL (0.0-0.2); #Eosinphils 0.2 thou/uL (0.0-0.7); #Monocytes 0.5 thou/uL (0.11-0.59); #Neutrophils 6.4 thou/uL (1.40-6.50); %Basophils 1.2 % (0.0-1.0); %Eosinophils 1.9 % (0.0-10.0); %Lymphocytes 12.4 % (21.0-51.0); %Monocytes 6.5 % (0.0-10.0); Hemoglobin 7.8 g/dL (12.0-16.0); Mean Corpuscular HGB CONC 31.9 g/dL (32.0-36.0); Mean Corpuscular Hemoglobin 31.4 pg (27.0-31.0); Mean Corpuscular Volume 98.4 fL (78.0-98.0); Platelet Count 1202 thou/uL (130-400); RBC Distribution Width 29.8 % (11.5-14.5); Red Blood Cell (RBC) Count 2.49 mill/uL (4.20-5.40); White Blood Cell (WBC) Count 8.2 thou/uL (4.8-10.8)
[2019-12-19 04:44] LABS: Anion Gap 12 mmol/L (10-20); BUN (Urea Nitrogen) 32 mg/dL (9.8-20.1); Calc. Creatinine Clearance 26 mL/min (70-130); Calcium 7.9 mg/dL (7.8-10.44); Carbon Dioxide 24 mmol/L (23-31); Chloride 108 mmol/L (98-107); Estimated GFR-MDRD 37; Glucose 116 mg/dL (80-115); Potassium 3.9 mmol/L (3.5-5.1); Sodium 140 mmol/L (136-145)
[2019-12-19] MEDS: Lidocaine Patch Removal 1 EACH TOP SCH (05:25)
--- NOTE | 2019-12-19 07:15 | PDOC.FM ---
- Subjective Subjective: pt sitting at bedside tolerating PO, denies dyspnea or chest pain - Objective Vital Signs & Weight: Vital Signs (12 hours) Temp Pulse Resp BP BP Pulse Ox 12/19/19 07:06 98.1 F 64 18 125/58 L 94 L 12/19/19 04:00 98.8 F 79 18 134/63 94 L 12/19/19 00:31 93 L 12/19/19 00:27 68 16 98 12/18/19 20:00 98.4 F 67 16 116/56 L 92 L Weight Weight 44.316 kg I&O: 12/18/19 12/19/19 12/20/19 06:59 06:59 06:59 Intake Total 600 1200 Output Total 1250 650 Balance -650 550 Result Diagrams: 12/19/19 03:53 12/19/19 03:53 Phys Exam - Physical Examination Constitutional: NAD HEENT: moist MMs Neck: no JVD Respiratory: clear to auscultation bilateral Cardiovascular: no significant murmur Gastrointestinal: no distention Musculoskeletal: no edema Neurological: moves all 4 limbs Psychiatric: normal affect Skin: no rash Dx/Plan (1) Acute respiratory failure with hypoxia Code(s): J96.01 - ACUTE RESPIRATORY FAILURE WITH HYPOXIA Status: Acute (2) Hyperglycemia Code(s): R73.9 - HYPERGLYCEMIA, UNSPECIFIED Status: Acute (3) Leukocytosis Code(s): D72.829 - ELEVATED WHITE BLOOD CELL COUNT, UNSPECIFIED Status: Acute (4) Pacemaker Code(s): Z95.0 - PRESENCE OF CARDIAC PACEMAKER Status: Acute (5) Symptomatic anemia Code(s): D64.9 - ANEMIA, UNSPECIFIED Status: Acute (6) COPD (chronic obstructive pulmonary disease) Status: Chronic Qualifiers: Emphysema type: unspecified (7) HTN (hypertension) Code(s): I10 - ESSENTIAL (PRIMARY) HYPERTENSION Status: Chronic Qualifiers: Hypertension type: essential hypertension Qualified Code(s): I10 - Essential (primary) hypertension - Plan Plan: GI bleed - melanotic stool 12/14, eliquis/asa held, protonix BID - monitor Hb. s/p 1u - GI consulted, appreciate recs Acute HFpEF exacerbation Recently discharged on 12/05. BNP improved from previous - 640. CXR showing cardiomegaly. - S/p 40 IV in ED, additional dose 12/14. - Strict I/Os, monitor daily weights, fluid restrict to 1500ml/day - cardiology consulted by oncology, appreciate recs DMII - aware, mild SS, ACHS Anemia - monitor and transfuse as needed Thrombocytosis, hx of blood dyscrasia - Seen by Dr. Singh, slightly above baseline - mgmt of meds by onc Hx of COPD, no exacerbation at this time - Albuterol/Ipratropium q6hr MARISOL Hx of afib - Rate controlled - discussed risks of holding eliquis including clot/stroke, pt agrees CKD stage 3b, at baseline - BUN/Cr: 34/1.40 on admission, will continue to monitor Hx of CVA - on ASA, statin, will continue Code: FULL VTE: SCDs Diet: HH, fluid restrict Dispo: dc today Addendum - Attending - Attending Attestation Date/Time: 12/19/19 4145 I personally evaluated the patient and discussed the management with Dr. Man. I agree with the History, Examination, Assessment and Plan documented above with any addition or exceptions noted below. Patient feeling well. Cardiology and Oncology have apparently signalled stable for discharge, will clarify. GI has signed off, patient will be d/c'd home per her request.
[2019-12-19] MEDS: Triamterene/Hydrochlorothiazide 37.5 mg/25 mg Tablet PO SCH (07:41)
[2019-12-19] MEDS: Carvedilol 6.25 MG TAB PO SCH (07:41)
[2019-12-19] MEDS: Hydroxyurea 500 MG CAP PO SCH ×2 (07:42→11:38)
[2019-12-19] MEDS: Fluticasone Propionate Nasal Spray 16 gm Bottle NASAL SCH (07:42)
[2019-12-19] MEDS: Pantoprazole 40 MG VIAL IVP SCH (07:42)
[2019-12-19] MEDS: Ascorbic Acid 500 mg Chewable Tablet PO SCH (07:43)
[2019-12-19] MEDS: Docusate 100 MG CAP PO SCH (07:43)
[2019-12-19 11:41] VITALS: TEMP 97.8
[2019-12-19 11:53] VITALS: BP 115/58
--- NOTE | 2019-12-19 14:23 | EKG ---
Test Reason : Blood Pressure : / mmHG Vent. Rate : 076 BPM Atrial Rate : 312 BPM P-R Int : 000 ms QRS Dur : 120 ms QT Int : 392 ms P-R-T Axes : 000 -31 118 degrees QTc Int : 441 ms Demand pacemaker; interpretation is based on intrinsic rhythm Atrial fibrillation with premature ventricular or aberrantly conducted complexes Left axis deviation Non-specific intra-ventricular conduction delay Abnormal ECG Confirmed by MICKEY GARCIA DO ([id number]), editor map DUANE ISABEL ([id number]) on 12/19/2019 2:23:22 PM Referred By: Confirmed By:MICKEY GARCIA DO
--- NOTE | 2019-12-20 02:50 | PQF ---
[employer] Sample Shoe Inspector And Reworker Crystal Reports Winform Viewer JOSEMANAV MACORLANDO CARVER MD *r* [id number] [facility]-281 [id number] CLINICAL DOCUMENTATION CLARIFICATION FORM: POST DISCHARGE Addendum to original discharge summary date: ____ Late entry note date: __ DATE: 12/20/19 ATTN:Orlando Banks Please exercise your independent, professional judgment in responding to the clarification form. Clinical indicators are provided on the bottom of this form for your review Can you please further clarify if Sepsis id ruled in or ruled out? Sepsis [ ] Ruled in diagnosis [ ] Continue to treat [ ] Resolved [ X] Ruled out diagnosis [ ] Cannot rule out diagnosis [ ] Other diagnosis [ ] Unable to determine In addition, please specify: Present on Admission (POA): [ ] Yes [ ] No [ ] Unable to determine For continuity of documentation, please document condition throughout progress notes and discharge summary. Thank You. CLINICAL INDICATORS - SIGNS / SYMPTOMS / LABS ED Provider pg.4- Sepsis H and P pg.5- Sepsis 2/2 presumed HAP H and P pg.5- initially tachypneic, fever, leukocytosis. LA of 1.0 Hospitalist PN pg.3- Sepsis secondary to HAP Family PN pg.3- CXR showing b/l effusion, no infiltrate noted Microbiology- Blood culture no growth RISK FACTORS Acute HFpEF exacerbation- H and P pg.5 Hx of COPD- H and P pg.6 HAP- H and P pg.5 Acute respiratory failure with hypoxia- Family PN pg.1 69 years old- H and P pg.1 r TREATMENTS Chest X ray 12/11 IV Fluids- MAR IV Antibiotics- MAR Blood culture- Microbiology (This form is maintained as a part of the permanent medical record) 2014 [employer]. All Rights Reserved [employer] CHRISTINE
== END 2019-12-19 13:18 | disposition home health service (06) | DRG 291 ==
LOC: ERS 17:57 → 2SW 20:28 → 2NO 12-15 11:40
PROVIDERS: ADMIT Family Medicine; ATTEND Family Medicine
PROC: 30233N1 Transfusion of Nonautologous Red Blood Cells into Peripheral Vein, Percutaneous Approach (ICD-10-PCS; principal; 2019-12-16)
DX: I13.0 Hypertensive heart and chronic kidney disease with heart failure and stage 1 through stage 4 chronic kidney disease, or unspecified chronic kidney disease (principal); I50.33 Acute on chronic diastolic (congestive) heart failure; J96.01 Acute respiratory failure with hypoxia; C95.90 Leukemia, unspecified not having achieved remission; I69.351 Hemiplegia and hemiparesis following cerebral infarction affecting right dominant side; C94.6 Myelodysplastic disease, not elsewhere classified; D75.81 Myelofibrosis; I48.21 Permanent atrial fibrillation; K92.1 Melena; E78.5 Hyperlipidemia, unspecified; N18.3 Chronic kidney disease, stage 3 (moderate); E11.22 Type 2 diabetes mellitus with diabetic chronic kidney disease; J44.9 Chronic obstructive pulmonary disease, unspecified; D63.1 Anemia in chronic kidney disease; E78.1 Pure hyperglyceridemia; E78.00 Pure hypercholesterolemia, unspecified; E11.51 Type 2 diabetes mellitus with diabetic peripheral angiopathy without gangrene; D47.3 Essential (hemorrhagic) thrombocythemia; E11.65 Type 2 diabetes mellitus with hyperglycemia; I49.5 Sick sinus syndrome; Z88.5 Allergy status to narcotic agent; Z88.8 Allergy status to other drugs, medicaments and biological substances; Z79.01 Long term (current) use of anticoagulants; Z79.51 Long term (current) use of inhaled steroids; Z79.899 Other long term (current) drug therapy; Z79.82 Long term (current) use of aspirin; Z90.49 Acquired absence of other specified parts of digestive tract; Z87.891 Personal history of nicotine dependence; Z95.0 Presence of cardiac pacemaker
CPT/HCPCS: 36415; 36416; 36430; 71045; 80048; 80053; 81003; 83605; 83880; 84145; 85014; 85018; 85025; 86850; 86900; 86901; 87040; 87086; 87449; 87633; 87804; 87899; 93005; 94640; 96365; 96366; 96367; C9113; J0692; J1940; J1956; J3370; P9016; Q5105; U0001

== ENCOUNTER 2020-03-08 08:58 | Day surgery (SDC) | payer MEDICARE, BC ==
[2020-03-08] MEDS ORDERED: Sodium Chloride 0.9% 20 ML ONE (09:13)
[2020-03-08] MEDS ORDERED: Acetaminophen 500 MG TAB PO SCH (09:45)
[2020-03-08] MEDS ORDERED: diphenhydrAMINE 25 MG CAP PO SCH (09:45)
[2020-03-08 15:41] VITALS: BP 180/72; TEMP 98.2
== END 2020-03-08 15:41 | disposition home or self-care (01) ==
LOC: ONC/OP 08:58
PROVIDERS: ATTEND Internal Medicine Hematology & Oncology
PROC: 30233N1 Transfusion of Nonautologous Red Blood Cells into Peripheral Vein, Percutaneous Approach (ICD-10-PCS; principal; 2020-03-08)
DX: D64.9 Anemia, unspecified (principal); D69.6 Thrombocytopenia, unspecified; Z88.8 Allergy status to other drugs, medicaments and biological substances
CPT/HCPCS: 36430; 86850; 86900; 86901; P9016; Q0163

== ENCOUNTER 2020-07-02 08:30 | Day surgery (SDC) | payer MEDICARE, BC ==
[2020-07-02] MEDS ORDERED: diphenhydrAMINE 25 MG CAP PO PRN (09:09)
[2020-07-02] MEDS ORDERED: Acetaminophen 500 MG TAB PO PRN (09:09)
[2020-07-02] MEDS ORDERED: Sodium Chloride 0.9% 20 ML ONE (09:13)
[2020-07-02 12:28] VITALS: BP 184/74; TEMP 98.5
== END 2020-07-02 12:29 | disposition home or self-care (01) ==
LOC: ONC/OP 08:30
PROVIDERS: ATTEND Internal Medicine Hematology & Oncology
PROC: 30233N1 Transfusion of Nonautologous Red Blood Cells into Peripheral Vein, Percutaneous Approach (ICD-10-PCS; principal; 2020-07-02)
DX: D64.9 Anemia, unspecified (principal); D69.6 Thrombocytopenia, unspecified; Z88.8 Allergy status to other drugs, medicaments and biological substances
CPT/HCPCS: 36430; 86850; 86900; 86901; P9016; Q0163

== ENCOUNTER 2020-07-12 09:35 | Outpatient (CLI) | payer MEDICARE, BC ==
--- NOTE | 2020-07-12 10:03 | ULT ---
US Spleen STANDARD HISTORY: Splenomegaly COMPARISON: None. FINDINGS: The spleen measures 9.1 x 4.4 x 4.9 cm. No splenic mass is identified. No perisplenic fluid collectio n is seen. IMPRESSION: No evidence of splenomegaly.
== END 2020-07-12 09:36 | disposition home or self-care (01) ==
LOC: BICULT 09:35
PROVIDERS: ATTEND Internal Medicine Hematology & Oncology
DX: R16.1 Splenomegaly, not elsewhere classified (principal)
CPT/HCPCS: 76705

== ENCOUNTER 2020-09-01 08:37 | Day surgery (SDC) | payer MEDICARE, BC ==
[2020-09-01] MEDS ORDERED: Acetaminophen 500 MG TAB PO SCH (09:00)
[2020-09-01] MEDS ORDERED: diphenhydrAMINE 25 MG CAP PO SCH (09:00)
[2020-09-01] MEDS ORDERED: Sodium Chloride 0.9% 20 ML ONE (09:43)
[2020-09-01 12:11] VITALS: BP 153/68; TEMP 98
== END 2020-09-01 12:32 | disposition home or self-care (01) ==
LOC: ONC/OP 08:37
PROVIDERS: ATTEND Internal Medicine Hematology & Oncology
PROC: 30233N1 Transfusion of Nonautologous Red Blood Cells into Peripheral Vein, Percutaneous Approach (ICD-10-PCS; principal; 2020-09-01)
DX: D64.9 Anemia, unspecified (principal); D69.6 Thrombocytopenia, unspecified
CPT/HCPCS: 36430; 86850; 86900; 86901; P9016; Q0163

== ENCOUNTER 2020-11-12 08:43 | Day surgery (SDC) | payer MEDICARE, BC ==
[2020-11-12] MEDS ORDERED: diphenhydrAMINE 25 MG CAP PO SCH (09:30)
[2020-11-12] MEDS ORDERED: Acetaminophen 500 MG TAB PO SCH (09:30)
[2020-11-12] MEDS ORDERED: Sodium Chloride 0.9% 20 ML ONE (09:51)
[2020-11-12 13:05] VITALS: BP 147/63; TEMP 98.1
== END 2020-11-12 13:05 | disposition home or self-care (01) ==
LOC: ONC/OP 08:43
PROVIDERS: ATTEND Internal Medicine Hematology & Oncology
PROC: 30233N1 Transfusion of Nonautologous Red Blood Cells into Peripheral Vein, Percutaneous Approach (ICD-10-PCS; principal; 2020-11-12)
DX: D64.9 Anemia, unspecified (principal); D69.6 Thrombocytopenia, unspecified; Z88.8 Allergy status to other drugs, medicaments and biological substances
CPT/HCPCS: 36430; 86850; 86900; 86901; P9016; Q0163

== ENCOUNTER 2020-12-15 08:51 | Day surgery (SDC) | payer MEDICARE, BC ==
[2020-12-15] MEDS ORDERED: Acetaminophen 500 MG TAB PO SCH (09:00)
[2020-12-15] MEDS ORDERED: diphenhydrAMINE 25 MG CAP PO SCH (09:00)
[2020-12-15] MEDS ORDERED: Sodium Chloride 0.9% 20 ML ONE (09:25)
[2020-12-15 12:35] VITALS: BP 159/70; TEMP 97.9
== END 2020-12-15 12:35 | disposition home or self-care (01) ==
LOC: ONC/OP 08:51
PROVIDERS: ATTEND Internal Medicine Hematology & Oncology
PROC: 30233N1 Transfusion of Nonautologous Red Blood Cells into Peripheral Vein, Percutaneous Approach (ICD-10-PCS; principal; 2020-12-15)
DX: D64.9 Anemia, unspecified (principal); D69.6 Thrombocytopenia, unspecified; Z88.8 Allergy status to other drugs, medicaments and biological substances
CPT/HCPCS: 36430; 86850; 86900; 86901; P9016; Q0163

== ENCOUNTER 2021-01-03 07:38 | Day surgery (SDC) | payer MEDICARE, BC ==
[2020-12-31 15:24] VITALS: BMI 24.1
[2021-01-03 08:49] LABS: INR-International Normal Ratio 1.3; PTT 37.5 sec (22.9-36.1); Prothrombin Time 16.9 sec (12.0-14.7)
[2021-01-03 10:50] VITALS: BP 147/61; TEMP 98.7
== END 2021-01-03 11:45 | disposition home or self-care (01) ==
LOC: CT 07:38
PROVIDERS: ATTEND Internal Medicine Hematology & Oncology
PROC: 07DR3ZX Extraction of Iliac Bone Marrow, Percutaneous Approach, Diagnostic (ICD-10-PCS; principal; 2021-01-03)
DX: D47.3 Essential (hemorrhagic) thrombocythemia (principal); C94.6 Myelodysplastic disease, not elsewhere classified; D50.9 Iron deficiency anemia, unspecified; J44.9 Chronic obstructive pulmonary disease, unspecified; I12.9 Hypertensive chronic kidney disease with stage 1 through stage 4 chronic kidney disease, or unspecified chronic kidney disease; N18.9 Chronic kidney disease, unspecified; D63.1 Anemia in chronic kidney disease; E78.5 Hyperlipidemia, unspecified; Z86.73 Personal history of transient ischemic attack (TIA), and cerebral infarction without residual deficits; Z87.891 Personal history of nicotine dependence; Z79.01 Long term (current) use of anticoagulants; Z79.899 Other long term (current) drug therapy; Z88.8 Allergy status to other drugs, medicaments and biological substances; Z95.0 Presence of cardiac pacemaker
CPT/HCPCS: 20225; 77012; 85097; 85610; 85730; 88184; 88237; 88264; 88280; 88305; 88311; 88313; 88341; 88342

== ENCOUNTER 2021-01-27 13:18 | Outpatient (CLI) | payer MEDICARE, BC ==
[2021-01-27] MEDS ORDERED: Iopamidol 370 76% 100 ML VIAL ONE (14:58)
== END 2021-01-27 13:19 | disposition home or self-care (01) ==
LOC: BICCT 13:18 → CT 13:19
PROVIDERS: ATTEND Internal Medicine Hematology & Oncology
DX: I26.99 Other pulmonary embolism without acute cor pulmonale (principal); R06.02 Shortness of breath; J90 Pleural effusion, not elsewhere classified; J98.11 Atelectasis; J84.9 Interstitial pulmonary disease, unspecified; I51.7 Cardiomegaly
CPT/HCPCS: 71275; 82565; Q9967

== ENCOUNTER 2021-02-09 12:15 | Outpatient (CLI) | payer MEDICARE, BC | END 2021-02-09 12:16 | disposition home or self-care (01) | LOC: BICULT 12:15 | PROVIDERS: ATTEND Internal Medicine Hematology & Oncology | DX: R16.1 Splenomegaly, not elsewhere classified (principal); N27.1 Small kidney, bilateral; N18.9 Chronic kidney disease, unspecified | CPT/HCPCS: 93975 ==

== ENCOUNTER 2021-02-25 11:33 | Inpatient (IN) | payer MEDICARE, BC ==
[2021-02-25 12:53] LABS: Hemoglobin 8.6 g/dL (12.0-16.0); Mean Corpuscular Hemoglobin 28.3 pg (27.0-31.0); Mean Corpuscular Volume 94.2 fL (78.0-98.0); Platelet Count 1702 thou/uL (130-400); RBC Distribution Width 33.4 % (11.5-14.5); Red Blood Cell (RBC) Count 3.03 mill/uL (4.20-5.40)
[2021-02-25 13:15] LABS: Anisocytosis MODERATE=16-30 cells (100X) (0-5/hpf); Band 3 % (5-11); Eosinophils 2 % (0-10); Howell Jolly Bodies SLIGHT = 1-2 cells (100X) (None Seen); Large Platelets SLIGHT; Lymphocytes 8 % (21-51); MDiff Complete? YES; Metamyelocyte 1 % (0-0); Monocytes 5 % (0-10); Neutrophil 78 % (42-75); Nucleated RBC 3 % (0); Ovalocytes SLIGHT = 2-5 cells (100X) (0-1/hpf); Platelet Morphology Comment Appears Increased; Polychromasia MODERATE = 3-4 cells (100X) (0-2/hpf); Reactive Lymphocytes 1 % (0-10); White Blood Cell (WBC) Count 14.1 thou/uL (4.8-10.8)
[2021-02-25 13:44] LABS: ALT (SGPT) 18 U/L (8-55); AST (SGOT) 34 U/L (5-34); Albumin 3.9 g/dL (3.4-4.8); Alkaline Phosphatase 167 U/L (40-110); Anion Gap 14 mmol/L (10-20); BUN (Urea Nitrogen) 38 mg/dL (9.8-20.1); Bilirubin, Total 0.7 mg/dL (0.2-1.2); Calc. Creatinine Clearance 0 mL/min (70-130); Calcium 8.9 mg/dL (7.8-10.44); Carbon Dioxide 21 mmol/L (23-31); Chloride 107 mmol/L (98-107); Globulin 2.5 g/dL (2.4-3.5); Glucose 175 mg/dL (83-110); Lipase 41 U/L (8-78); Potassium 6.2 mmol/L (3.5-5.1); Protein, Total 6.4 g/dL (5.8-8.1); Sodium 136 mmol/L (136-145)
[2021-02-25] MEDS ORDERED: Azithromycin 500 MG VIAL ONE (14:08)
[2021-02-25] MEDS ORDERED: cefTRIAXone\\ROCEPHIN 1 GM VIAL ONE (14:08)
[2021-02-25] MEDS ORDERED: methylPREDNISolone Sod Succ/PF 125 MG/2 ML VIAL ONE (14:57)
[2021-02-25 16:10] LABS: Potassium 5.6 mmol/L (3.5-5.1)
[2021-02-25 16:16] LABS: Magnesium 2.8 mg/dL (1.6-2.6); Phosphorus 5.2 mg/dL (2.3-4.7)
[2021-02-25] MEDS ORDERED: Ondansetron PF 4 MG/2 ML Vial IVP PRN (16:53)
[2021-02-25] MEDS ORDERED: Dextrose 5% in Water 1,000 ML IV PRN (16:53)
[2021-02-25] MEDS ORDERED: Acetaminophen 325 MG TAB PO PRN (16:53)
[2021-02-25] MEDS ORDERED: Ipratropium Bromide 2.5 ml Neb NEB PRN (16:53)
[2021-02-25] MEDS ORDERED: Senokot S 8.6-50 MG TAB PO PRN (16:53)
[2021-02-25] MEDS ORDERED: Dextrose 50% Abboject 50 ML SYRINGE SLOW IVP PRN (16:53)
[2021-02-25] MEDS ORDERED: Ondansetron ODT 4 MG TAB PO PRN (16:53)
[2021-02-25 16:54] LABS: Bilirubin Negative (Negative); Blood, Urine Negative (Negative); Glucose, Urine (Dipstick) Negative (Negative); Ketone, Urine Negative (Negative); Leukocyte Negative (Negative); Nitrite Negative (Negative); Protein, Urine (Dipstick) Negative (Neg-Trace); Urobilinogen 0.2 mg/dL (Less than 2); pH, Urine 5.5 (5.0-9.0)
[2021-02-25 16:55] LABS: Clarity Clear (Clear)
[2021-02-25 16:56] LABS: Bacteria/HPF None Seen HPF (None Seen); RBC/HPF 0-3 HPF (0-3); Squamous Epithelial 0-3 HPF (0-3); WBC/HPF 0-3 HPF (0-3)
[2021-02-25] MEDS ORDERED: predniSONE 20 MG TAB PO SCH (17:15)
[2021-02-25] MEDS ORDERED: Lactated Ringer's 1,000 ML IV SCH (17:15)
[2021-02-25] MEDS: Ipratropium Bromide 2.5 ml Neb NEB SCH ×2 (18:51→22:13)
[2021-02-25 19:28] VITALS: BMI 23.1
[2021-02-25] MEDS ORDERED: Hydroxyurea 500 MG CAP PO SCH (21:00)
[2021-02-25] MEDS ORDERED: Docusate 100 MG CAP PO SCH (21:30)
[2021-02-25] MEDS: HumaLOG 300 UNITS/3 ML VIAL SC PRN (22:35)
[2021-02-26] MEDS: Ipratropium Bromide 2.5 ml Neb NEB SCH ×2 (01:36→07:31)
[2021-02-26] MEDS: HumaLOG 300 UNITS/3 ML VIAL SC PRN ×4 (06:29→21:43)
[2021-02-26 06:44] LABS: Hemoglobin 7.6 g/dL (12.0-16.0); Mean Corpuscular HGB CONC 29.4 g/dL (32.0-36.0); Mean Corpuscular Hemoglobin 28.4 pg (27.0-31.0); Mean Corpuscular Volume 96.6 fL (78.0-98.0); Mean Platelet Volume 10.2 fL (7.4-10.4); Platelet Count 1413 thou/uL (130-400); RBC Distribution Width 32.9 % (11.5-14.5); Red Blood Cell (RBC) Count 2.68 mill/uL (4.20-5.40); White Blood Cell (WBC) Count 17.5 thou/uL (4.8-10.8)
[2021-02-26 06:55] LABS: ALT (SGPT) 16 U/L (8-55); AST (SGOT) 27 U/L (5-34); Albumin 3.4 g/dL (3.4-4.8); Alkaline Phosphatase 140 U/L (40-110); Anion Gap 15 mmol/L (10-20); BUN (Urea Nitrogen) 38 mg/dL (9.8-20.1); Bilirubin, Total 0.5 mg/dL (0.2-1.2); Calc. Creatinine Clearance 33 mL/min (70-130); Carbon Dioxide 19 mmol/L (23-31); Chloride 108 mmol/L (98-107); Globulin 2.4 g/dL (2.4-3.5); Glucose 262 mg/dL (83-110); Potassium 5.1 mmol/L (3.5-5.1); Protein, Total 5.8 g/dL (5.8-8.1); Sodium 137 mmol/L (136-145)
[2021-02-26 07:38] LABS: Anisocytosis SLIGHT = 6-15 cells (100X) (0-5/hpf); Band 1 % (5-11); Elliptocytes SLIGHT = 2-5 cells (100X) (0-1/hpf); Giant Platelets SLIGHT; Hypersemented Neutrophil SLIGHT; Hypochromia SLIGHT = 6-15 cells (100X) (0-5/hpf); Large Platelets MODERATE; Lymphocytes 3 % (21-51); MDiff Complete? YES; Monocytes 5 % (0-10); Neutrophil 90 % (42-75); Nucleated RBC 1 % (0); Platelet Morphology Comment Appears Increased; Polychromasia MODERATE = 3-4 cells (100X) (0-2/hpf); Reactive Lymphocytes 1 % (0-10); Tear Drops SLIGHT = 2-5 cells (100X) (0-1/hpf)
[2021-02-26] MEDS ORDERED: Hydroxyurea 500 MG CAP PO SCH (09:00)
[2021-02-26] MEDS: Azithromycin 250 MG TAB PO SCH (09:17)
[2021-02-26] MEDS: Ascorbic Acid 500 mg Chewable Tablet PO SCH (09:17)
[2021-02-26] MEDS: Cholecalciferol 1,000 UNITS (25 MCG) TAB PO SCH (09:18)
[2021-02-26] MEDS: Carvedilol 25 MG TAB PO SCH ×2 (09:18→17:02)
[2021-02-26] MEDS: Loratadine 10 MG TAB PO SCH (09:18)
[2021-02-26] MEDS: predniSONE 20 MG TAB PO SCH (09:18)
[2021-02-26] MEDS: Losartan 25 MG TAB PO SCH (09:18)
[2021-02-26] MEDS: traZODone HCl 50 MG TAB PO SCH ×2 (09:19→09:24)
[2021-02-26] MEDS: Apixaban 2.5 MG TAB PO SCH ×2 (09:20→17:02)
[2021-02-26] MEDS: Hydroxyurea 500 MG CAP PO SCH ×2 (09:21→21:42)
[2021-02-26] MEDS ORDERED: traZODone HCl 50 MG TAB PO PRN (17:45)
[2021-02-26] MEDS ORDERED: Melatonin 3 MG TAB PO PRN (17:45)
[2021-02-26] MEDS ORDERED: Atorvastatin Calcium 20 MG TAB PO SCH (21:00)
[2021-02-27] MEDS: HumaLOG 300 UNITS/3 ML VIAL SC PRN (05:48)
[2021-02-27 07:13] LABS: Anion Gap 17 mmol/L (10-20); BUN (Urea Nitrogen) 44 mg/dL (9.8-20.1); Calc. Creatinine Clearance 30 mL/min (70-130); Calcium 8.2 mg/dL (7.8-10.44); Carbon Dioxide 18 mmol/L (23-31); Chloride 108 mmol/L (98-107); Glucose 167 mg/dL (83-110); Potassium 5.4 mmol/L (3.5-5.1); Sodium 138 mmol/L (136-145)
[2021-02-27] MEDS: predniSONE 20 MG TAB PO SCH (08:28)
[2021-02-27] MEDS: Loratadine 10 MG TAB PO SCH (08:28)
[2021-02-27] MEDS: Azithromycin 250 MG TAB PO SCH (08:28)
[2021-02-27] MEDS: Apixaban 2.5 MG TAB PO SCH ×2 (08:28→16:52)
[2021-02-27] MEDS: Carvedilol 25 MG TAB PO SCH ×2 (08:28→16:52)
[2021-02-27] MEDS: Ascorbic Acid 500 mg Chewable Tablet PO SCH (08:28)
[2021-02-27] MEDS: Cholecalciferol 1,000 UNITS (25 MCG) TAB PO SCH (08:28)
[2021-02-27] MEDS: Losartan 25 MG TAB PO SCH (08:29)
[2021-02-27] MEDS: Hydroxyurea 500 MG CAP PO SCH (08:30)
[2021-02-27 08:46] LABS: Anisocytosis SLIGHT = 6-15 cells (100X) (0-5/hpf); Band 2 % (5-11); Elliptocytes SLIGHT = 2-5 cells (100X) (0-1/hpf); Hemoglobin 7.8 g/dL (12.0-16.0); Hypochromia SLIGHT = 6-15 cells (100X) (0-5/hpf); Large Platelets MODERATE; Lymphocytes 3 % (21-51); MDiff Complete? YES; Mean Corpuscular HGB CONC 28.5 g/dL (32.0-36.0); Mean Corpuscular Hemoglobin 27.5 pg (27.0-31.0); Mean Corpuscular Volume 96.5 fL (78.0-98.0); Mean Platelet Volume 10.1 fL (7.4-10.4); Monocytes 7 % (0-10); Neutrophil 88 % (42-75); Nucleated RBC 1 % (0); Ovalocytes MODERATE= 6-15 cells (100X) (0-1/hpf); Platelet Count 1432 thou/uL (130-400); Platelet Morphology Comment Appears Increased; Polychromasia MARKED = >4 cells (100X) (0-2/hpf); RBC Distribution Width 33.7 % (11.5-14.5); Red Blood Cell (RBC) Count 2.85 mill/uL (4.20-5.40); Target Cells SLIGHT = 2-5 cells (100X) (0-1/hpf)
[2021-02-27] MEDS ORDERED: Allopurinol 100 MG TAB PO SCH (09:45)
[2021-02-27 18:18] VITALS: BP 156/74; TEMP 97.9
[2021-02-28] MEDS ORDERED: Allopurinol 100 MG TAB PO SCH (09:00)
== END 2021-02-27 17:38 | disposition home health service (06) | DRG 189 ==
LOC: ERS 11:33 → T4-A 15:17
PROVIDERS: ADMIT Family Medicine; ATTEND Family Medicine
DX: J96.01 Acute respiratory failure with hypoxia (principal); J44.1 Chronic obstructive pulmonary disease with (acute) exacerbation; I50.32 Chronic diastolic (congestive) heart failure; I13.0 Hypertensive heart and chronic kidney disease with heart failure and stage 1 through stage 4 chronic kidney disease, or unspecified chronic kidney disease; N17.9 Acute kidney failure, unspecified; D75.81 Myelofibrosis; I69.351 Hemiplegia and hemiparesis following cerebral infarction affecting right dominant side; Z20.822 Contact with and (suspected) exposure to COVID-19; I48.91 Unspecified atrial fibrillation; Z66 Do not resuscitate; D47.3 Essential (hemorrhagic) thrombocythemia; E87.5 Hyperkalemia; D46.9 Myelodysplastic syndrome, unspecified; N18.32 Chronic kidney disease, stage 3b; E11.22 Type 2 diabetes mellitus with diabetic chronic kidney disease; D63.1 Anemia in chronic kidney disease; E11.51 Type 2 diabetes mellitus with diabetic peripheral angiopathy without gangrene; E78.1 Pure hyperglyceridemia; E78.00 Pure hypercholesterolemia, unspecified; E78.5 Hyperlipidemia, unspecified; D50.9 Iron deficiency anemia, unspecified; R16.1 Splenomegaly, not elsewhere classified; Z90.49 Acquired absence of other specified parts of digestive tract; Z88.8 Allergy status to other drugs, medicaments and biological substances; Z98.890 Other specified postprocedural states; Z88.5 Allergy status to narcotic agent; Z95.1 Presence of aortocoronary bypass graft; Z87.891 Personal history of nicotine dependence; Z79.01 Long term (current) use of anticoagulants; Z79.899 Other long term (current) drug therapy
CPT/HCPCS: 36415; 36416; 71045; 80048; 80053; 81003; 83615; 83690; 83735; 83880; 84100; 84145; 84484; 84550; 85025; 86850; 86900; 86901; 87040; 87086; 93005; 94640; 96365; 96367; 96375; J0456; J0696; J1815; J2930; J7512; J7620

== ENCOUNTER 2021-08-26 09:17 | Day surgery (SDC) | payer MEDICARE, BC ==
[2021-08-26] MEDS ORDERED: Sodium Chloride 0.9% 10 ML ONE ×2 (09:51)
[2021-08-26] MEDS ORDERED: Acetaminophen 500 MG TAB ONE (09:51)
[2021-08-26] MEDS ORDERED: diphenhydrAMINE 25 MG CAP ONE (09:51)
[2021-08-26] MEDS ORDERED: Acetaminophen 500 MG TAB PO SCH (10:00)
[2021-08-26] MEDS ORDERED: diphenhydrAMINE 25 MG CAP PO SCH (10:00)
[2021-08-26 13:19] VITALS: BP 147/65; TEMP 97.9
== END 2021-08-26 13:37 | disposition home or self-care (01) ==
LOC: ONC/OP 09:17
PROVIDERS: ATTEND Internal Medicine Hematology & Oncology
PROC: 30233N1 Transfusion of Nonautologous Red Blood Cells into Peripheral Vein, Percutaneous Approach (ICD-10-PCS; principal; 2021-08-26)
DX: D64.9 Anemia, unspecified (principal); D69.6 Thrombocytopenia, unspecified; Z88.8 Allergy status to other drugs, medicaments and biological substances
CPT/HCPCS: 36430; 86850; 86900; 86901; P9016

== ENCOUNTER 2021-09-30 10:20 | Outpatient (CLI) | payer MEDICARE, BC | END 2021-09-30 10:21 | disposition home or self-care (01) | LOC: RAD 10:20 | PROVIDERS: ATTEND Internal Medicine Hematology & Oncology | DX: S79.912A Unspecified injury of left hip, initial encounter (principal) ==

== ENCOUNTER 2021-09-30 10:26 | Day surgery (SDC) | payer MEDICARE, BC ==
[2021-09-30] MEDS ORDERED: diphenhydrAMINE 25 MG CAP ONE (10:59)
[2021-09-30] MEDS ORDERED: Acetaminophen 500 MG TAB ONE (11:00)
[2021-09-30 14:31] VITALS: BP 169/70; TEMP 98.4
== END 2021-09-30 14:34 | disposition home or self-care (01) ==
LOC: ONC/OP 10:26
PROVIDERS: ATTEND Internal Medicine Hematology & Oncology
PROC: 30233N1 Transfusion of Nonautologous Red Blood Cells into Peripheral Vein, Percutaneous Approach (ICD-10-PCS; principal; 2021-09-30)
DX: D64.9 Anemia, unspecified (principal); D69.6 Thrombocytopenia, unspecified; Z88.8 Allergy status to other drugs, medicaments and biological substances
CPT/HCPCS: 36430; 86850; 86900; 86901; P9016

== ENCOUNTER 2021-10-07 08:59 | Day surgery (SDC) | payer MEDICARE, BC ==
[2021-10-07] MEDS ORDERED: Sodium Chloride 0.9% 10 ML ONE (09:15)
[2021-10-07] MEDS ORDERED: diphenhydrAMINE 25 MG CAP ONE (09:15)
[2021-10-07] MEDS ORDERED: Acetaminophen 500 MG TAB ONE (09:15)
[2021-10-07 14:49] VITALS: TEMP 98.3
[2021-10-07 14:50] VITALS: BP 179/76
== END 2021-10-07 14:51 | disposition home or self-care (01) ==
LOC: ONC/OP 08:59
PROVIDERS: ATTEND Internal Medicine Hematology & Oncology
PROC: 30233N1 Transfusion of Nonautologous Red Blood Cells into Peripheral Vein, Percutaneous Approach (ICD-10-PCS; principal; 2021-10-07)
DX: D64.9 Anemia, unspecified (principal); Z88.8 Allergy status to other drugs, medicaments and biological substances
CPT/HCPCS: 36430; 86850; 86900; 86901; P9016

== ENCOUNTER 2022-05-17 14:56 | Emergency (ER) | payer MEDICARE, BC ==
[2022-05-17 16:06] LABS: #Basophils 0.2 thou/uL (0.0-0.2); #Lymphocytes 0.6 thou/uL (1.20-3.40); #Monocytes 0.8 thou/uL (0.11-0.59); #Neutrophils 7.4 thou/uL (1.40-6.50); %Basophils 2.2 % (0.0-1.0); %Eosinophils 0.3 % (0.0-10.0); %Lymphocytes 6.3 % (21.0-51.0); %Monocytes 8.8 % (0.0-10.0); %Neutrophils 82.4 % (42.0-75.0); Hemoglobin 8.5 g/dL (12.0-16.0); Mean Corpuscular HGB CONC 31.3 g/dL (32.0-36.0); Mean Corpuscular Hemoglobin 34.2 pg (27.0-31.0); Mean Platelet Volume 10.2 fL (7.4-10.4); Platelet Count 1413 thou/uL (130-400); RBC Distribution Width 34.5 % (11.5-14.5)
[2022-05-17 16:22] LABS: ALT (SGPT) 17 U/L (8-55); AST (SGOT) 22 U/L (5-34); Albumin 3.9 g/dL (3.4-4.8); Alkaline Phosphatase 124 U/L (40-110); Anion Gap 18 mmol/L (10-20); BUN (Urea Nitrogen) 39 mg/dL (9.8-20.1); Calc. Creatinine Clearance 0 mL/min (70-130); Calcium 8.8 mg/dL (7.8-10.44); Carbon Dioxide 17 mmol/L (23-31); Chloride 103 mmol/L (98-107); Estimated GFR 54; Globulin 2.8 g/dL (2.4-3.5); Glucose 142 mg/dL (83-110); Potassium 5.8 mmol/L (3.5-5.1); Protein, Total 6.7 g/dL (5.8-8.1); Sodium 132 mmol/L (136-145)
[2022-05-17 17:29] LABS: Anion Gap 18 mmol/L (10-20); BUN (Urea Nitrogen) 36 mg/dL (9.8-20.1); Calc. Creatinine Clearance 0 mL/min (70-130); Calcium 8.4 mg/dL (7.8-10.44); Carbon Dioxide 17 mmol/L (23-31); Chloride 103 mmol/L (98-107); Estimated GFR 57; Glucose 145 mg/dL (83-110); Potassium 4.6 mmol/L (3.5-5.1); Sodium 133 mmol/L (136-145)
[2022-05-17 18:22] LABS: Bacteria/HPF 4+ HPF (None Seen); Bilirubin Negative (Negative); Blood, Urine Negative (Negative); Clarity Clear (Clear); Glucose, Urine (Dipstick) Normal (Negative); Ketone, Urine Negative (Negative); Leukocyte Negative Leu/uL (Negative); Nitrite Negative (Negative); Protein, Urine (Dipstick) 50 mg/dL (Neg-Trace); RBC/HPF 0-3 HPF (0-3); Specific Gravity, Urine 1.015 (1.002-1.036); Squamous Epithelial 0-3 HPF (0-3); Urobilinogen Normal mg/dL (Less than 2); WBC/HPF 0-3 HPF (0-3); pH, Urine 5.5 (5.0-9.0)
== END 2022-05-17 21:04 | disposition home or self-care (01) ==
LOC: ERS 14:56
DX: E87.5 Hyperkalemia (principal); D64.9 Anemia, unspecified; J44.9 Chronic obstructive pulmonary disease, unspecified; D75.839 Thrombocytosis, unspecified; I11.0 Hypertensive heart disease with heart failure; I50.9 Heart failure, unspecified; E78.00 Pure hypercholesterolemia, unspecified; Z86.73 Personal history of transient ischemic attack (TIA), and cerebral infarction without residual deficits; Z87.891 Personal history of nicotine dependence; Z79.899 Other long term (current) drug therapy; Z79.01 Long term (current) use of anticoagulants
CPT/HCPCS: 36415; 51701; 80053; 81003; 81015; 85025; 93005; J7620

== ENCOUNTER 2022-05-24 11:54 | Day surgery (SDC) | payer MEDICARE, BC ==
[2022-05-24] MEDS ORDERED: diphenhydrAMINE 25 MG CAP PO SCH (13:00)
[2022-05-24] MEDS ORDERED: Acetaminophen 500 MG TAB PO SCH (13:00)
[2022-05-24] MEDS ORDERED: diphenhydrAMINE 25 MG CAP ONE (15:14)
[2022-05-24] MEDS ORDERED: Acetaminophen 500 MG TAB ONE (15:14)
[2022-05-24 16:26] VITALS: BP 144/70; TEMP 97.7
== END 2022-05-24 18:04 | disposition home or self-care (01) ==
LOC: ONC/OP 11:54
PROVIDERS: ATTEND Internal Medicine Hematology & Oncology
PROC: 30233N1 Transfusion of Nonautologous Red Blood Cells into Peripheral Vein, Percutaneous Approach (ICD-10-PCS; principal; 2022-05-24)
DX: D64.9 Anemia, unspecified (principal); D69.6 Thrombocytopenia, unspecified; Z88.8 Allergy status to other drugs, medicaments and biological substances
CPT/HCPCS: 36430; 86850; 86900; 86901; P9016